=== PATIENT | female | born 1980 | race Caucasian/White ===

== ENCOUNTER → 2018-02-27 11:12 | Outpatient (CLI) | payer OTHER, SELFPAY ==
--- NOTE | 2018-02-27 11:21 | XR_ITS ---
XR foot LT min 3V HISTORY: ITS.REASON: LEFT FOOT PAIN ORDERING PHYSICIAN: Nayeli Lopez PATIENT AGE: 37 years COMPARISON: None FINDINGS: No fracture or dislocation. No lytic or blastic change. There is normal mineralization.. The joint spaces are well-preserved. No significant degenerative/arthritic changes. No erosive changes evident. IMPRESSION: Negative, no acute finding
== END ==
PROVIDERS: PCP Family Medicine; Visit Provider Nurse Practitioner Family
DX: M79.672 Pain in left foot (principal)
CPT/HCPCS: 73630

== ENCOUNTER → 2020-08-29 09:34 | Outpatient (CLI) | payer OTHER, SELFPAY | PROVIDERS: PCP Family Medicine; Visit Provider Family Medicine | DX: Z20.828 Contact with and (suspected) exposure to other viral communicable diseases (principal); U07.1 COVID-19 | CPT/HCPCS: U0003 ==

== ENCOUNTER → 2020-12-05 12:01 | Outpatient (CLI) | payer OTHER, SELFPAY ==
[2020-12-05 19:42] LABS: Adenovirus,PCR Not Detected (NotDetected); Bordetella Pertussis Not Detected (NotDetected); Chlamydophila Pneumoniae, PCR Not Detected (NotDetected); Coronavirus 229E Not Detected (NotDetected); Coronavirus NL63 Not Detected (NotDetected); Coronavirus OC43 Not Detected (NotDetected); Coronovirus HKU1,PCR Not Detected (NotDetected); Human Metapneumovirus Not Detected (NotDetected); Influenza A, PCR Not Detected (NotDetected); Influenza AH1, 2009 Not Detected (NotDetected); Influenza AH1, PCR Not Detected (NotDetected); Influenza AH3,PCR Not Detected (NotDetected); Influenza B, PCR Not Detected (NotDetected); Mycoplasma Pneumoniae, PCR Not Detected (NotDetected); Parainfluenza 1, PCR Not Detected (NotDetected); Parainfluenza 2, PCR Not Detected (NotDetected); Parainfluenza 3, PCR Not Detected (NotDetected); Parainfluenza 4, PCR Not Detected (NotDetected); Respiratory Syncytial Virus Not Detected (NotDetected); Rhinovirus/Enterovirus Not Detected (NotDetected)
== END ==
PROVIDERS: PCP Family Medicine; Visit Provider Family Medicine
DX: Z20.822 Contact with and (suspected) exposure to COVID-19 (principal)
CPT/HCPCS: 87486; 87581; 87633; 87798; U0003

== ENCOUNTER → 2021-06-26 12:53 | Outpatient (CLI) | payer OTHER, SELFPAY ==
--- NOTE | 2021-06-26 12:57 | US_ITS ---
PROCEDURE: US TRANSVAGINAL CLINICAL INDICATION: RT SIDED ABD PAIN ON OB PT COMPARISON: No exams were available for comparison FINDINGS: UTERUS: 8cm x 6cmx 4cm with a combined endometrial thickness of 4.9mm LEFT OVARY: [id number] with a volume of 4.7ml. RIGHT OVARY: [id number] with a volume of 7.2ml. No adnexal mass or cul-de-sac fluid. No uterine mass apparent. IMPRESSION: Negative pelvic ultrasound Dictated by: Bobby Martinez MD 06/26/2021 17:01 Bobby Martinez MD in [place] 06/26/2021 17:01
== END ==
PROVIDERS: PCP Family Medicine; Visit Provider Family Medicine
DX: R10.9 Unspecified abdominal pain (principal)
CPT/HCPCS: 76830

== ENCOUNTER → 2021-12-13 13:42 | Outpatient (CLI) | payer OTHER, SELFPAY ==
--- NOTE | 2021-12-13 13:45 | MM_ITS ---
PROCEDURE INFORMATION: Exam: US Right Breast Limited MG Bilateral Diagnostic Breast Tomosynthesis Exam date and time: 12/13/2021 1:45 PM Age: 41 years old Clinical indication: Palpable lump in the 12 o'clock position of the right breast. Patient is status post bilateral breast reduction in 2020. TECHNIQUE: Imaging protocol: Limited ultrasound of Right breast with image documentation, including axilla when performed. Exam focused on the search and evaluation for mass. Bilateral Diagnostic tomosynthesis and 2D mammography including computer-aided detection (CAD) when performed. Unilateral or bilateral exam. COMPARISON: No relevant prior studies available. FINDINGS: MAMMOGRAPHY: Breast density: The breasts are heterogeneously dense, which may obscure small masses. Mass: No suspicious masses. In the region of the patient's palpable lump in the right upper inner quadrant there is a benign-appearing, circumscribed, oval fat density mass measuring 3.3 x 2.6 x 2.9 cm, compatible with an oil cyst associated with post reduction fat necrosis. Similar-appearing fat density lesion in the posterior upper left breast measures 1.6 cm, also compatible with a postsurgical oil cyst. Architectural distortion: Prominent broad area of architectural distortion in the medial right breast is likely secondary to post reduction changes. Calcifications: No suspicious calcifications. Asymmetric density: None. Skin thickening: None. Axillary adenopathy: None. ULTRASOUND: Probably benign complex cystic mass in the 12 o'clock position 3 cm from the nipple measures 2.2 x 3.0 x 1.5 cm, compatible with post reduction fat necrosis. Additional complex cystic mass with internal septations in the 10 o'clock position 4 cm from the nipple measures 0.7 x 0.9 x 0.5 cm. No internal vascular flow noted in these cystic lesions. Benign-appearing fatty axillary lymph nodes are seen, largest measuring 1.9 cm in length. IMPRESSION: Recommend six-month follow-up diagnostic mammogram and ultrasound of the right breast to confirm stability of a probably benign 3.0 cm complex cystic mass which is compatible with post reduction fat necrosis. Prominent architectural distortion noted in the region of the mass on mammogram also likely represents post reduction changes, more pronounced in the right breast compared to the left. These findings correlate with the area of patient's palpable lump. Incidental 0.9 cm complex cystic mass with internal septations in the 10 o'clock position, also favors postoperative fat necrosis. Since this is the patient's baseline mammogram, recommend six-month follow-up diagnostic mammogram and ultrasound of the right breast to confirm stability of the palpable, probably benign area of post reduction fat necrosis in the 12 o'clock position and to confirm stability of an incidental cystic lesion in the 10 o'clock position of the right breast seen on ultrasound. No definite mammographic evidence of malignancy in the left breast. ASSESSMENT: BI-RADS Category 3: Probably Benign
== END ==
LOC: RAD 13:42
PROVIDERS: PCP Family Medicine; Visit Provider Family Medicine
DX: N63.12 Unspecified lump in the right breast, upper inner quadrant (principal)
CPT/HCPCS: 76642; 77062; 77066; G0279

== ENCOUNTER 2022-02-09 22:54 | Emergency (ER) | payer OTHER, SELFPAY ==
[2022-02-09 22:55] VITALS: BP 133/98; PULSE 87; RESP 20; TEMP 36.8; O2SAT 99; BMI 28.5
--- NOTE | 2022-02-09 23:00 | ECG_ITS ---
APPROVED REPORT Exam: Resting ECG HR:94 bpm ECG Measurements Heart Rate 94 AXES NC 143 P 56 QRSd 92 QRS 46 QT 341 T 57 QTc 393 Conclusion SINUS RHYTHM LOW QRS VOLTAGE IN PRECORDIAL LEADS [QRS DEFLECTION < 1.0 mV IN CHEST LEADS] BORDERLINE ECG UNCONFIRMED REPORT Electronically signed by : Dawood Segovia MD 02/11/2022 20:14:30
--- NOTE | 2022-02-09 23:14 | XR_ITS ---
PROCEDURE INFORMATION: Exam: XR Chest Exam date and time: 02/09/2022 11:39 PM Age: 41 years old Clinical indication: Sternal or substernal pain; Additional info: Cp TECHNIQUE: Imaging protocol: XR of the chest. Views: 2 views. COMPARISON: CR CXR CHEST(2 VIEWS-NOT PORTABLE) 11/16/2015 8:18 AM FINDINGS: Lungs: Mild hyperinflation. Lungs are otherwise clear. Pleural spaces: Unremarkable. No pleural effusion. No pneumothorax. Heart/Mediastinum: Unremarkable. No cardiomegaly. Bones/joints: Unremarkable. IMPRESSION: Mild pulmonary hyperinflation, otherwise normal exam.
[2022-02-09 23:31] LABS: Basophils # 0.2 K/mm3 (0-0.2); Basophils % 1.7 % (0.1-2.0); Eosinophils # 0.1 K/mm3 (0.0-0.4); Eosinophils % 0.8 % (0.1-12.0); Hematocrit 37.2 % (37.0-47.0); Lymphocytes # 3.8 K/mm3 (0.7-4.5); Mean Corpuscular HGB Conc 34.9 g/dL (31.8-35.4); Mean Corpuscular Hemoglobin 27.8 pg (27.0-31.2); Mean Corpuscular Volume 79.6 fl (81-99); Mean Platelet Volume 7.1 fl (7.4-10.4); Monocytes % 8.7 % (1.7-9.3); Neutrophils # 6.4 K/mm3 (1.8-7.8); Neutrophils % 55.8 % (37.0-80.0); Platelet Count 578 K/mm3 (142-424); Red Blood Count 4.67 M/mm3 (4.20-5.40); Red Cell Distribution Width 14.6 % (11.5-17.5); White Blood Count 11.4 K/mm3 (4.8-10.8)
[2022-02-09 23:36] LABS: Alanine Aminotransferase 14 U/L (12-78); Albumin Level 4.3 g/dl (3.5-5.0); Alkaline Phosphatase 83 U/L (38-126); Anion Gap 11.7 mEq/L (5-15); Aspartate Amino Transferase 22 U/L (14-36); Bilirubin,Direct 0.2 mg/dl (0.0-0.4); Bilirubin,Indirect 0.3 mg/dL (0.0-0.9); Bilirubin,Total 0.5 mg/dl (0.2-1.3); Bilirubin,Unconjugated 0.4 mg/dL (0.0-1.1); Blood Urea Nitrogen 13 mg/dl (7-17); Calcium 9.8 mg/dl (8.4-10.2); Carbon Dioxide 23 mmol/L (22.0-30.0); Chloride 105 mmol/L (98-107); Creatinine Clearance Estimated 106 mL/min (50-200); Estimated Glomerular Filt Rate 70 ml/min (>60); GFR (African American) 84 ML/MIN (>60); Glucose 93 mg/dl (74-100); Potassium 3.7 mmoL/L (3.5-5.1); Sodium 136 mmol/L (136-145); Total Protein,Serum 7.4 g/dl (6.3-8.2)
[2022-02-09 23:42] LABS: C-Reactive Protein 16.9 mg/L (0-4)
[2022-02-09 23:54] LABS: Erythrocyte Sedimentation Rate 22 mm/hr (0-20)
[2022-02-09 23:55] LABS: Troponin I < 0.01 ng/ml (0.00-0.034)
[2022-02-09 23:56] LABS: Procalcitonin 0.041 ng/mL (0.0-2.0)
[2022-02-10] VITALS: BP 138/94; PULSE 83; RESP 14; O2SAT 100
[2022-02-10 00:02] LABS: NT Pro Brain Natriuretic Pep. < 11.1 pg/mL (0-125)
[2022-02-10 00:10] LABS: HCG Qualitative, Serum Negative (Negative)
--- NOTE | 2022-02-10 00:13 | PC.NURSE ---
Pt reports she is feeling much better and denies any pain
[2022-02-10 00:30] VITALS: BP 136/90; PULSE 80; RESP 16; O2SAT 99
--- NOTE | 2022-02-10 00:46 | HMH.EDCP ---
ED Disposition Clinical Impression: Atypical chest pain Disposition: Home, Self-Care Condition on Discharge: Good Instructions: DI for Atypical Chest Pain Additional Instructions: see pcp for follow up Referrals: Nayeli Lopez APRN [Primary Care Provider] - - Critical Care Critical Care Time: No Attestation: On 02/09/22, the high probability of a clinically significant, sudden or life threatening deterioration of the following system(s) required my full and direct attention, intervention and personal management. The time I documented below is in addition to time spent performing reported procedures but includes the following listed in this critical care notation. Medical Decision Making - Medical Records Medical records reviewed: Yes: I reviewed the patient's medical records. - Dannie Inquiry Pt receiving controlled substance: No Vital Signs: 02/09/22 22:55 02/10/22 00:00 Temperature 98.2 F Temperature Source Oral Pulse Rate 83 Pulse Rate [Right] 87 Respiratory Rate 20 14 Blood Pressure 138/94 H Blood Pressure [Right Arm] 133/98 H Blood Pressure Mean 117 Blood Pressure Mean [Right Arm] 109 Blood Pressure Source [Right Arm] Automatic Cuff 02 Sat by Pulse Oximetry 99 100 Oxygen Delivery Method Room Air Room Air - Lab Data Lab results reviewed: Yes: I reviewed the patient's lab results. Lab Results 02/09/22 23:00: WBC 11.4 H, RBC 4.67, Hgb 13.0, Hct 37.2, MCV 79.6 L, MCH 27.8, MCHC 34.9, RDW 14.6, Plt Count 578 H, MPV 7.1 L, Neut % (Auto) 55.8, Lymph % (Auto) 33.0, [place] % (Auto) 8.7, Eos % (Auto) 0.8, Baso % (Auto) 1.7, Neut # (Auto) 6.4, Lymph # (Auto) 3.8, [place] # (Auto) 1.0, Eos # (Auto) 0.1, Baso # (Auto) 0.2, ESR 22 H 02/09/22 23:00: Sodium 136, Potassium 3.7, Chloride 105, Carbon Dioxide 23, Anion Gap 11.7, BUN 13, Creatinine 0.90, Estimated Creat Clear 106, Estimated GFR 70, Est GFR ( Amer) 84, Glucose 93, Calcium 9.8, Total Bilirubin 0.5, Direct Bilirubin 0.2, Conjugated Bilirubin 0.0, Indirect Bilirubin 0.3, Unconjugated Bilirubin 0.4, AST 22, ALT 14, Alkaline Phosphatase 83, Troponin I < 0.01, C-Reactive Protein 16.9 H, Total Protein 7.4, Albumin 4.3, Procalcitonin 0.041 02/09/22 23:00: Serum HCG, Qual Negative 02/09/22 23:00: NT-Pro-B Natriuret Pep < 11.1 Result diagrams: 02/09/22 23:00 02/09/22 23:00 Orders (Tests/Meds): ED MEDICATIONS Generic Name Dose Route Start Last Admin Trade Name Freq PRN Reason Stop Dose Admin Lactated Ringer's 1,000 mls @ 999 mls/hr 02/09/22 23:45 02/09/22 23:43 Lactated Ringer's 1000 Ml Bag IV 02/10/22 00:45 999 mls/hr .Q1H1M KERI Administration Discontinued Medications Generic Name Dose Route Start Last Admin Trade Name Freq PRN Reason Stop Dose Admin Aspirin 324 mg 02/09/22 23:35 02/09/22 23:05 Aspirin 81mg Chewable Tablet PO 02/09/22 23:36 324 mg ONCE ONE Administration ORDERS Category Date Time Status Troponin I Q3H Lab 02/10/22 02:30 Ordered Troponin I Q3H Lab 02/10/22 05:30 Ordered Urinalysis and Microscopic Stat Lab 02/09/22 23:20 Ordered - Radiology Data #1 Image(s): Chest Image Reviewed: Yes I have reviewed radiologist's interpretation Preliminary Findings: Normal/NAD - ECG Data Tracing #1 Normal Sinus Rhythm: Yes Ischemic changes: non-specific ST-T wave changes Medical Decision Narrative: stable exam and labs and will follow up at this time Chest Pain HPI - General Chief Complaint: Chest Pain Stated Complaint: SOA Time Seen by Provider: 02/10/22 00:46 Mode of Arrival: Family Vehicle Source of Information: Patient, Medical Record Limitations: No Limitations Description of Symptoms (Recalled from ER Triage Doc. by RN): Pt c/o midsternal chest pain that began @ 2240 tonight. She reports when the pain began it ttok my breath away , she denies any current SOA. She also reports when this started her mouth and fingertips felt numb, this did dispiate. She d
[2022-02-10 01:01] VITALS: BP 135/88; PULSE 79; RESP 16; TEMP 36.7; O2SAT 98
== END 2022-02-10 01:15 | disposition home or self-care (01) ==
PROVIDERS: Emergency Provider Emergency Medicine; PCP Nurse Practitioner Family
DX: R07.89 Other chest pain (principal); E78.5 Hyperlipidemia, unspecified; I49.9 Cardiac arrhythmia, unspecified; Z79.899 Other long term (current) drug therapy
CPT/HCPCS: 71046; 80048; 80076; 83880; 84145; 84484; 84703; 85025; 85651; 86140; 93005; 96360; 99283

== ENCOUNTER → 2022-05-16 09:02 | Outpatient (CLI) | payer OTHER, SELFPAY ==
--- NOTE | 2022-05-16 09:07 | CT_ITS ---
FINAL REPORT TECHNIQUE: Axial images through the abdomen and pelvis were performed without contrast. This study was performed with techniques to keep radiation doses as low as reasonably achievable, (ALARA). Individualized dose reduction techniques using automated exposure control or adjustment of mA and/or kV according to the patient's size were employed. CLINICAL HISTORY: stone protocol. left flank pain FINDINGS: ABDOMEN: The lung bases are clear. The heart size is normal. There are 3 low-attenuation masses in the liver, largest in the lateral segment of the left hepatic lobe measures 39 mm which cannot be accurately characterized without contrast, may represent cyst or hemangioma. The gallbladder is present. The spleen is normal. No adrenal mass is identified. The aorta is normal in caliber. There is no significant free fluid or adenopathy. There is no nephrolithiasis. There is no hydronephrosis. PELVIS: The appendix is not identified. There is inflammation adjacent to the distal descending colon consistent with epiploic appendagitis. Finding is best seen on axial image 84. The urinary bladder is unremarkable. There is no significant free fluid or adenopathy. IMPRESSION: Epiploic appendagitis. Reviewed, Interpreted and Dictated by Gume Yeh III, MD Transcribed by Dali Loomis Authenticated and [facility]
== END ==
PROVIDERS: PCP Physician Assistant; Visit Provider Physician Assistant
DX: R10.32 Left lower quadrant pain (principal)
CPT/HCPCS: 74176

== ENCOUNTER 2022-06-23 11:34 | Observation (INO) | payer OTHER, SELFPAY ==
[2022-06-23] VITALS (8 sets, daily range): BP systolic 116–156; BP diastolic 80–94; PULSE 84–102; RESP 16–18; TEMP 36.7–36.9; O2SAT 96–100; BMI 29.7; BMI 29.8
--- NOTE | 2022-06-23 11:49 | HMH.EDGENADL ---
Discharge Plan Disposition Patient Disposition: Admitted as Observation Condition: Fair Clinical Impressions Clinical Impression: Lumbar radiculopathy Discharge ED Provider: Jayleen Carr Adult HPI General Chief complaint: Back Pain/Injury Stated complaint: back pain Time Seen by Provider: 06/23/22 11:49 Mode of Arrival: Ambulatory Source of Information: Patient Limitations: No Limitations History of Present Illness HPI narrative: 41-year-old female presenting to the emergency department with back pain. Pain started 3 to 4 days ago. Initially was dull, aching. [place] like her chronic low back pain. Over the last 48 hours it is gotten much worse. It is located in the midportion of the back and radiates to the low right. Pain is worst just above her hip bone on the right posterior. Does not radiate to the buttocks, front of the hip, down the leg. She has pain with trunk motion. No pain with walking. She could not find a position of comfort last night. Did not get any sleep. She has a history of low back problems, but they got much better after breast reduction surgery. No known injury or fall. She did sit on uncomfortable bleachers for a sports game in the midportion of the week. She has been taking naproxen. Received this Toradol injection at her PCP yesterday, did not feel like it helped. No abdominal pain, fevers, chills, nausea, vomiting. No constipation or diarrhea. No dysuria or hematuria. No urinary symptoms, retention or frequency. No numbness, weakness, tingling in the genital area or the lower extremities. Related Data Home Medications Medication Instructions Recorded Confirmed desogestrel 0.15 mg-ethinyl 1 each PO DAILY control 02/09/22 06/23/22 estradiol 0.03 mg tablet pantoprazole 40 mg tablet,delayed 40 mg PO DAILY GERD 02/09/22 06/23/22 release zolpidem 10 mg tablet 10 mg PO HSP PRN Insomnia 02/09/22 06/23/22 Allergies Allergy/AdvReac Type Severity Reaction Status Date / Time magnesium [MAGNESIUM] Allergy Severe STOP Verified 02/09/22 23:36 BREATHING' butorphanol [From STADOL] AdvReac Mild Nausea Verified 02/09/22 23:42 PFSH PFSH Social History Smoking Status: Never smoker alcohol intake: current current occupational status: employed Travel in the last 8 weeks: None ROS Obtained: Yes All systems reviewed & no additional complaints except as documented Constitutional Constitutional: Denies chills, Denies fever(s) and Denies weakness ENT Ears, Nose, Mouth, and Throat: Denies neck pain Cardiovascular Cardiovascular: Denies dyspnea, Denies edema and Denies leg edema Respiratory Respiratory: Denies cough, Denies dyspnea and Denies pain on inspiration Gastrointestinal Gastrointestingal: Denies abdominal pain, cramping, diarrhea, nausea or vomiting Genitourinary Female Genitourinary: Denies dysuria, Reports flank pain and Denies hematuria Musculoskeletal Musculoskeletal: Denies arthralgias, Reports back pain, Denies neck pain, Denies numbness, Reports stiffness and Denies tingling Integumentary/Breasts Skin/Breast: Denies lesions and Denies rash Neurologic Neurologic: Denies numbness, Denies radicular pain, Denies tingling and Denies weakness Physical Exam General General appearance: alert and in no apparent distress Eye Eye exam: Present normal appearance; Absent conjunctival redness Neck Neck exam: Present normal inspection; Absent tenderness Respiratory Respiratory exam: Present normal lung sounds bilaterally; Absent respiratory distress or wheezes Cardiovascular Cardiovascular exam: Present regular rate and normal rhythm Abdominal Exam Abdominal exam: Present soft; Absent distention or tenderness Extremities Exam Extremities exam: Present normal inspection and other (No pain with leg raise on the right or left. No tenderness palpation over the greater trochanter on the right.) Back Exam Back exam: Present normal inspection, tenderness (To palpa
[2022-06-23 11:50] LABS: Microscopic, Urine URINE MICROSCOPIC (MICROSCOPIC)
--- NOTE | 2022-06-23 11:58 | PC.NURSE ---
pt medicated per MAR. warm blankets provided for comfort. IV established and blood sent to the lab
[2022-06-23 12:01] LABS: Basophils # 0.1 K/mm3 (0-0.2); Basophils % 0.9 % (0.1-2.0); Eosinophils # 0.1 K/mm3 (0.0-0.4); Eosinophils % 1.1 % (0.1-12.0); Hemoglobin 12.5 g/dL (12.2-16.2); Lymphocytes # 2.2 K/mm3 (0.7-4.5); Lymphocytes % 19.1 % (10-50); Mean Corpuscular HGB Conc 32.9 g/dL (31.8-35.4); Mean Corpuscular Hemoglobin 26.6 pg (27.0-31.2); Mean Corpuscular Volume 80.9 fl (81-99); Mean Platelet Volume 6.9 fl (7.4-10.4); Monocytes # 0.5 K/mm3 (0.1-1.0); Monocytes % 4.3 % (1.7-9.3); Neutrophils # 8.5 K/mm3 (1.8-7.8); Neutrophils % 74.6 % (37.0-80.0); Platelet Count 563 K/mm3 (142-424); Red Cell Distribution Width 14.1 % (11.5-17.5); White Blood Count 11.3 K/mm3 (4.8-10.8)
[2022-06-23 12:02] LABS: Appearance,Urine CLOUDY (Clear); Bilirubin,Urine Negative (Negative); Blood, Urine Negative (Negative); Color,Urine YELLOW (Yellow); Glucose,Urine (UA) Negative (Negative); Ketones,Urine Negative (Negative); Leukocyte Esterase,Urine Negative (Negative); Nitrate,Urine Negative (Negative); PH,Urine 5.5 (5.0-8.5); Protein,Urine Negative (Negative); Specific Gravity, Urine >= 1.030 (1.005-1.030); Urobilinogen,Urine 0.2 EU/dl (0.2)
[2022-06-23 12:07] LABS: Chloride 108 mmol/L (98-107); Potassium 4.3 mmoL/L (3.5-5.1); Sodium 139 mmol/L (136-145)
[2022-06-23 12:10] LABS: Alanine Aminotransferase 14 U/L (12-78); Albumin Level 4.2 g/dl (3.5-5.0); Albumin/Globulin Ratio 1.2 (1.1-1.8); Alkaline Phosphatase 113 U/L (38-126); Anion Gap 13.3 mEq/L (5-15); Aspartate Amino Transferase 28 U/L (14-36); Blood Urea Nitrogen 14 mg/dl (7-17); Calcium 8.5 mg/dl (8.4-10.2); Carbon Dioxide 22 mmol/L (22.0-30.0); Creatinine Clearance Estimated 121 mL/min (50-200); Estimated Glomerular Filt Rate 80 ml/min (>60); GFR (African American) 97 ML/MIN (>60); Globulin 3.4 g/dL (1.3-3.2); Glucose 91 mg/dl (74-100); Total Protein,Serum 7.6 g/dl (6.3-8.2)
[2022-06-23 12:16] LABS: Amorphous Sediment,Urine 1+ /lpf; Bacteria,Urine 1+ /lpf; RBC,Urine Occasional #/hpf (0-3)
[2022-06-23 12:19] LABS: Bilirubin,Total 0.1 mg/dl (0.2-1.3)
[2022-06-23 12:20] LABS: HCG Qualitative, Serum Negative (Negative)
--- NOTE | 2022-06-23 12:27 | CT_ITS ---
PROCEDURE INFORMATION: Exam: CT Abdomen And Pelvis Without Contrast Exam date and time: 06/23/2022 12:33 PM Age: 41 years old Clinical indication: Pain; Other: Lbp; Additional info: Lt lbp x 2 days TECHNIQUE: Imaging protocol: Computed tomography of the abdomen and pelvis without contrast. Radiation optimization: All CT scans at this facility use at least one of these dose optimization techniques: automated exposure control; mA and/or kV adjustment per patient size (includes targeted exams where dose is matched to clinical indication); or iterative reconstruction. COMPARISON: CT ABDOMEN PELVIS WO CON 05/16/2022 9:10 AM FINDINGS: Liver: There are 3 persistent hypoattenuating lesions within the liver. The largest measures 3.9 cm and has somewhat all lobulated configuration. This is located in the subcapsular region of the left lobe of the liver. Findings cannot be adequately characterized without contrast however stable compared to the study dated 05/16/2022. Gallbladder and bile ducts: Normal. No calcified stones. No ductal dilation. Pancreas: Normal. No ductal dilation. Spleen: Normal. No splenomegaly. Adrenal glands: Normal. No mass. Kidneys and ureters: Normal. No hydronephrosis. Stomach and bowel: The descending colon is collapsed on the current study. Previously demonstrated changes consistent with epiploic appendagitis have nearly resolved. Appendix: Not definitely identified. No evidence of appendicitis. Intraperitoneal space: Unremarkable. No free air. No significant fluid collection. Vasculature: Unremarkable. No abdominal aortic aneurysm. Lymph nodes: Unremarkable. No enlarged lymph nodes. Urinary bladder: Unremarkable as visualized. Reproductive: Unremarkable as visualized. Bones/joints: Unremarkable. No acute fracture. Soft tissues: Unremarkable. IMPRESSION: 1. No evidence of acute abnormality. 2. Previously demonstrated changes consistent with epiploic appendagitis have nearly resolved. 3. 3.9 cm lobulated low-density lesion within the left lobe of the liver just beneath the diaphragm. Findings may correspond to a hemangioma however cannot be adequately characterized without intravenous contrast. Consider follow-up with dynamic post-contrast enhanced imaging. Alternatively, MRI of the abdomen should be considered.
--- NOTE | 2022-06-23 12:33 | PC.NURSE ---
pain reassessed. pt states she has not had relief. new orders placed per MD request and pt medicated per MAR
--- NOTE | 2022-06-23 12:37 | PC.NURSE ---
pt to ct at this time
--- NOTE | 2022-06-23 12:42 | PC.NURSE ---
pt returned from CT
--- NOTE | 2022-06-23 13:35 | PC.NURSE ---
pt pacing the room states she is still in pain. this nurse spoke with MD for additional pain management. new orders placed per MD and pt medicated at this time. pt updated on POC and that we are awaiting radiology report.
--- NOTE | 2022-06-23 14:42 | PC.NURSE ---
MD at the bedside to discuss POC and test results
--- NOTE | 2022-06-23 14:46 | PC.NURSE ---
pt states she does not want to wear her BP cuff. states she is too uncomfortable. VS delayed
[2022-06-23 15:02] LABS: C-Reactive Protein 18.7 mg/L (0-4)
[2022-06-23 15:45] LABS: Erythrocyte Sedimentation Rate 21 mm/hr (0-20)
--- NOTE | 2022-06-23 16:26 | PC.NURSE ---
IN WITH PT
--- NOTE | 2022-06-23 17:39 | PC.NURSE ---
DR ISAURA BLANCHARD FOR SERVICE
[2022-06-23 17:40] LABS: Coronavirus 19, PCR Not Detected (NotDetected); Influenza A, PCR Not Detected (NotDetected); Influenza B, PCR Not Detected (NotDetected)
--- NOTE | 2022-06-23 17:45 | PC.NURSE ---
DR DELAROSA AGREED TO ADMIT PT , HOUSE NOTIFIED FOR ADMISSION
--- NOTE | 2022-06-23 18:30 | PC.NURSE ---
report called to [facility] daily
[2022-06-24 04:00] VITALS: BP 98/54; PULSE 96; RESP 16; TEMP 36.6; O2SAT 98
--- NOTE | 2022-06-24 04:17 | PC.NURSE ---
pt rested well through the night after ambien, pt stated some relief from percocet and flexeril and rated pain 5/10 to right lower back area, pt is alert and oriented x4, VSS, no other issues or concerns at this time.
[2022-06-24 05:00] VITALS: BMI 29.7
[2022-06-24 08:00] VITALS: BP 113/70; PULSE 91; RESP 18; TEMP 36.7; O2SAT 96
--- NOTE | 2022-06-24 08:22 | HMH.PHAINT1 ---
Pharmacy Intervention Comments: MEDICATION RECONCILIATION COMPLETED ON PATIENT USING EXTERNAL FILL HISTORY FROM PHARMACY AND BRISA REPORT. -CHEY CORREIA, MATTHEWD
--- NOTE | 2022-06-24 08:24 | P.CONPHA_ITS ---
[facility] Pharmacy VTE Monitoring Patient Demographics Admission date: 06/23/22 Report Date: 06/24/22 Time: 08:24 Patient Allergies magnesium [MAGNESIUM] Allergy (Severe, Verified 02/09/22 23:36) STOP BREATHING' butorphanol [From STADOL] Adverse Reaction (Mild, Verified 02/09/22 23:42) Nausea Height: 1.65 m Weight: 81 kg Current Active Problems (Updated 06/23/22 @ 20:29 by Sabiha Bingham RN) Lumbar radiculopathy (Acute) VTE Risk Labs: VTE Related Lab Results Hgb 12.5 g/dL (12.2-16.2) 06/23/22 11:49 Hct 38.0 % (37.0-47.0) 06/23/22 11:49 Plt Count 563 K/mm3 (142-424) H 06/23/22 11:49 BUN 14 mg/dl (7-17) 06/23/22 11:49 Creatinine 0.80 mg/dl (0.52-1.04) 06/23/22 11:49 Estimated Creat Clear 121 mL/min (50-200) 06/23/22 11:49 Was VTE Risk Assessment Performed: Yes VTE Score: 0 VTE Risk Level: Very Low Risk Prophylaxis VTE Prophylaxis Ordered?: Yes Types of VTE Prophylaxis: TEDS Knee High Location of Applied Device: Bilateral Lower Extremeties
[2022-06-24 08:34] LABS: Anion Gap 12.3 mEq/L (5-15); Blood Urea Nitrogen 10 mg/dl (7-17); Calcium 9.1 mg/dl (8.4-10.2); Carbon Dioxide 21 mmol/L (22.0-30.0); Chloride 107 mmol/L (98-107); Creatinine Clearance Estimated 161 mL/min (50-200); Estimated Glomerular Filt Rate 111 ml/min (>60); GFR (African American) 135 ML/MIN (>60); Glucose 118 mg/dl (74-100); Potassium 4.3 mmoL/L (3.5-5.1); Sodium 136 mmol/L (136-145)
--- NOTE | 2022-06-24 09:19 | EXP.HPDC ---
General Admission date:: 06/23/22 Discharge date: 06/24/22 *Admission Date: 06/23/22 *Chief complaint: Low back pain *History of present illness: My is a generally healthy 41-year-old white female who presented to the ER yesterday with a 2-day history of worsening low back pain. She localizes the pain to the right lower back with no radicular symptoms. She recalls no specific injury. She did sit on bleachers at a sporting event at night before her pain started. She had seen her PCP the day before coming to the ER and received an injection of Toradol and prescription for muscle relaxers but had no improvement. On evaluation in the emergency room, she was initially assessed for renal colic. Routine blood work and urinalysis were nonrevealing. CT scan of the abdomen also showed no acute abnormalities. While in the ER, she received several doses of oral and IV narcotics, IV Toradol, IV steroids, and muscle relaxers with no significant improvement in her pain. She was thus admitted for observation and further pain management. [facility] Medical History (Updated 06/24/22 @ 09:19 by Prudencio Davis MD) Bigeminy delivery delivered History of back pain Trigeminy Surgical History (Updated 06/23/22 @ 20:29 by Sabiha Bingham RN) History of radiofrequency ablation (RFA) procedure for cardiac arrhythmia Hx of breast reduction, elective Social History (Updated 06/23/22 @ 20:29 by Sabiha Bingham RN) Smoking Status: Never smoker alcohol intake: current substance use type: denies use current occupational status: employed Travel in the last 8 weeks: None household members: spouse and children housing: house marital status: number of children: 2 education level: college pets and animals: Yes pets and animals: 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(s) 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 water heater temp set < 120 deg: Yes working smoke detector in home: Yes fire extinguisher in home: Yes carbon monox detector in home: Yes firearms in home: No Review of Systems Constitutional Constitutional: Denies body ache(s), Denies fever(s) and Denies weakness Eyes Eyes: Denies change in vision ENT Ears, Nose, Mouth, and Throat: Reports system reviewed and no additional complaints, except as documented *Cardiovascular Cardiovascular: Denies chest pain, Denies dyspnea, Denies irregular heart rhythm and Denies leg edema *Respiratory Respiratory: Denies chest congestion, Denies cough and Denies dyspnea *Gastrointestinal Gastrointestinal: Denies abdominal pain, Denies change in bowel habits and Denies nausea *Genitourinary Genitourinary: Denies abnormal vaginal bleeding, Denies dysuria, Denies urinary incontinence and Denies urinary hesitancy *Musculoskeletal Musculoskeletal: Reports as per HPI, Denies numbness and Denies tingling *Neurologic Neurologic: Denies numbness, Denies radicular pain, Denies tingling and Denies weakness Comments: No saddle anesthesia Exam Data for Last 24 hours Vital signs and Labs for Last 24 Hours: Temp Pulse Resp BP Pulse Ox 97.8 F 96 H 16 98/54 L 98 06/24/22 04:00 06/24/22 04:00 06/24/22 04:00 06/24/22 04:00 06/24/22 04:00 Laboratory Results - last 24 hr 06/23/22 11:38: Urine Color Yellow, Urine Appearance Cloudy, Urine pH 5.5, Ur Specific [place] >= 1.030, Urine Protein Negative, Urine Glucose (UA) Negative, Urine Ketones Negative, Urine Blood Negative, Urine Nitrate Negative, Urine Bilirubin Negative, Urine Urobilinogen 0.2, Ur Leukocyte Esterase Negative, Urine RBC Occasional, Urine WBC 3-5, Ur Squamous Epith Cells 5-10, Amorphous Sediment 1+, Urine Bacteria 1+ 06/23/22 11:49: WBC 11.3 H, RBC 4.70, Hgb 12.5, Hct 38.0, MCV 80.9 L, MCH 26.6 L, MCHC 32.9, RDW 14.1, Plt Count 563 H, MPV 6.9 L, Neut % (Auto) 74.6, Lymph % (Auto) 19.1, [place] % (Auto) 4.3, Eos % (Auto) 1.1, Baso % (Auto) 0.9, Neut # (Auto) 8.5 H, Lymph # (Auto) 2.2, [place] # (Auto) 0.5, Eos # (Aut
--- NOTE | 2022-06-24 09:29 | PC.NURSE ---
pt had 1 unmeasured void
--- NOTE | 2022-06-24 10:24 | PC.NURSE ---
pt has been disachrged from the facilkity. Family with pt. She denies any pain @ this time.l WIll schedule follow up tomorrow when office is open.
--- NOTE | 2022-06-25 12:53 | CARE MANAGER ---
Contacted patient related to hospital discharge. Patient is still having a lot of pain. She has a follow up appointment with Dr. Acosta in the morning and is hoping to get some type of relief. She denies any questions or concerns at this time. CARRI Contreras
== END 2022-06-24 09:55 | disposition home or self-care (01) ==
LOC: ER 17:35 → 2ND 18:11
PROVIDERS: Admitting Provider Family Medicine; Emergency Provider Emergency Medicine; PCP Nurse Practitioner Family; Visit Provider Family Medicine
DX: S39.012A Strain of muscle, fascia and tendon of lower back, initial encounter (principal); M46.1 Sacroiliitis, not elsewhere classified; Z20.822 Contact with and (suspected) exposure to COVID-19
CPT/HCPCS: 36415; 74176; 80048; 80053; 81001; 84703; 85025; 85651; 86140; 99285; C9803; G0378; J2405; U0003; U0005

== ENCOUNTER → 2022-07-16 07:34 | Outpatient (CLI) | payer OTHER, SELFPAY ==
--- NOTE | 2022-07-16 07:37 | MR_ITS ---
FINAL REPORT CLINICAL HISTORY: LESION OF LIVER. ABNORMAL CT SCAN. 16ML PROHANCE GIVEN. COMPARISON: CT abdomen and pelvis dated 06/23/2022 FINDINGS: Multiplanar MR imaging of the abdomen was performed without and with contrast. There are 3 well-circumscribed hepatic masses again seen. The largest has a lobular contour, measures up to 4.4 cm. and is seen in the lateral segment of the left hepatic lobe. None of these show evidence of contrast enhancement and are consistent with cysts. There is no evidence of biliary ductal dilatation. The gallbladder has an unremarkable appearance. No other mass or adenopathy is identified. No abnormal fluid collection is seen. IMPRESSION: Nonenhancing hepatic masses consistent with cysts. Reviewed, Interpreted and Dictated by Gume Yeh III, MD Transcribed by Anu Lo Authenticated and . [facility]
== END ==
PROVIDERS: PCP Nurse Practitioner Family; Visit Provider Family Medicine
DX: K76.89 Other specified diseases of liver (principal)
CPT/HCPCS: 74183; A9576

== ENCOUNTER 2022-07-24 17:00 | Outpatient (RCR) | payer OTHER, SELFPAY | END 2022-07-24 17:05 | disposition home or self-care (01) | LOC: PT 17:00 | PROVIDERS: PCP Nurse Practitioner Family; Visit Provider Family Medicine | DX: M54.50 Low back pain, unspecified (principal); M53.3 Sacrococcygeal disorders, not elsewhere classified | CPT/HCPCS: 97010; 97014; 97035; 97110; 97140; 97163; G0283 ==

== ENCOUNTER → 2022-07-31 16:22 | Outpatient (CLI) | payer OTHER, SELFPAY ==
[2022-07-31 20:21] LABS: Basophils # 0.1 K/mm3 (0-0.2); Basophils % 0.9 % (0.1-2.0); Eosinophils # 0.1 K/mm3 (0.0-0.4); Eosinophils % 0.6 % (0.1-12.0); Hematocrit 39.5 % (37.0-47.0); Hemoglobin 12.8 g/dL (12.2-16.2); Lymphocytes # 2.2 K/mm3 (0.7-4.5); Lymphocytes % 28.8 % (10-50); Mean Corpuscular HGB Conc 32.5 g/dL (31.8-35.4); Mean Corpuscular Hemoglobin 26.4 pg (27.0-31.2); Mean Corpuscular Volume 81.1 fl (81-99); Mean Platelet Volume 8.3 fl (7.4-10.4); Monocytes # 0.5 K/mm3 (0.1-1.0); Monocytes % 7.2 % (1.7-9.3); Neutrophils # 4.7 K/mm3 (1.8-7.8); Neutrophils % 62.5 % (37.0-80.0); Platelet Count 692 K/mm3 (142-424); Red Blood Count 4.87 M/mm3 (4.20-5.40); Red Cell Distribution Width 14.8 % (11.5-17.5); White Blood Count 7.5 K/mm3 (4.8-10.8)
[2022-07-31 21:12] LABS: Alanine Aminotransferase 17 U/L (12-78); Albumin Level 4.1 g/dl (3.5-5.0); Albumin/Globulin Ratio 1.3 (1.1-1.8); Alkaline Phosphatase 107 U/L (38-126); Anion Gap 19.2 mEq/L (5-15); Aspartate Amino Transferase 22 U/L (14-36); Bilirubin,Total 0.2 mg/dl (0.2-1.3); Blood Urea Nitrogen 9 mg/dl (7-17); Calcium 9.1 mg/dl (8.4-10.2); Carbon Dioxide 23 mmol/L (22.0-30.0); Chloride 101 mmol/L (98-107); Chol/HDL Ratio 3.8 (1-3.5); Cholesterol 281 mg/dl (140-200); Estimated Glomerular Filt Rate 70 ml/min (>60); GFR (African American) 84 ML/MIN (>60); Globulin 3.1 g/dL (1.3-3.2); Glucose 93 mg/dl (74-100); HDL Cholesterol 73 mg/dl (40-60); Potassium 4.2 mmoL/L (3.5-5.1); Sodium 139 mmol/L (136-145); Total Protein,Serum 7.2 g/dl (6.3-8.2)
[2022-07-31 21:19] LABS: Hemoglobin A1C 5.2 % (4.0-6.0); Triglycerides 404 mg/dl (30-150)
[2022-07-31 21:23] LABS: Direct LDL Cholesterol 149.89 mg/dL (100-129)
[2022-07-31 21:38] LABS: Thyroid Stimulating Hormone 3.53 uIU/mL (0.465-4.68)
[2022-07-31 21:56] LABS: Vitamin B12 353 pg/mL (239-931)
[2022-07-31 22:56] LABS: 25-OH Vitamin D, Total 21.8 ng/mL (30-100)
== END ==
PROVIDERS: PCP Physician Assistant; Visit Provider Physician Assistant
DX: R44.9 Unspecified symptoms and signs involving general sensations and perceptions (principal); E55.9 Vitamin D deficiency, unspecified; Z79.899 Other long term (current) drug therapy
CPT/HCPCS: 80053; 80061; 82306; 82607; 83036; 84443; 85025

== ENCOUNTER → 2022-08-01 09:28 | Outpatient (CLI) | payer OTHER, SELFPAY ==
[2022-08-03 09:03] LABS: Peripheral Smear Review Scanned Result
== END ==
PROVIDERS: PCP Physician Assistant; Visit Provider Nurse Practitioner
DX: R06.00 Dyspnea, unspecified (principal); R00.2 Palpitations; R61 Generalized hyperhidrosis; Z98.890 Other specified postprocedural states
CPT/HCPCS: 93270

== ENCOUNTER → 2022-08-03 08:28 | Outpatient (CLI) | payer OTHER, SELFPAY | PROVIDERS: PCP Physician Assistant; Visit Provider Nurse Practitioner | DX: R06.00 Dyspnea, unspecified (principal); R00.2 Palpitations; R61 Generalized hyperhidrosis; Z98.890 Other specified postprocedural states | CPT/HCPCS: 93306 ==

== ENCOUNTER → 2022-08-20 09:08 | Outpatient (CLI) | payer OTHER, SELFPAY ==
[2022-08-20 09:51] LABS: Basophils # 0.1 K/mm3 (0-0.2); Basophils % 0.8 % (0.1-2.0); Eosinophils # 0.1 K/mm3 (0.0-0.4); Eosinophils % 0.9 % (0.1-12.0); Hematocrit 35.4 % (37.0-47.0); Hemoglobin 11.8 g/dL (12.2-16.2); Lymphocytes # 2.1 K/mm3 (0.7-4.5); Lymphocytes % 25.6 % (10-50); Mean Corpuscular HGB Conc 33.4 g/dL (31.8-35.4); Mean Corpuscular Hemoglobin 26.5 pg (27.0-31.2); Mean Corpuscular Volume 79.4 fl (81-99); Mean Platelet Volume 7.1 fl (7.4-10.4); Monocytes # 0.6 K/mm3 (0.1-1.0); Neutrophils # 5.4 K/mm3 (1.8-7.8); Neutrophils % 65.7 % (37.0-80.0); Platelet Count 546 K/mm3 (142-424); Red Blood Count 4.46 M/mm3 (4.20-5.40); Red Cell Distribution Width 14.5 % (11.5-17.5); White Blood Count 8.2 K/mm3 (4.8-10.8)
[2022-08-20 10:13] LABS: Iron 53 ug/dL (37-170)
[2022-08-20 10:48] LABS: Ferritin 5.97 ng/ml (6.24-137)
[2022-08-20 11:32] LABS: Total Iron Binding Capacity 493 ug/dL (265-497)
== END ==
PROVIDERS: PCP Nurse Practitioner Family; Visit Provider Internal Medicine Medical Oncology
DX: D50.8 Other iron deficiency anemias (principal); D61.818 Other pancytopenia; R79.89 Other specified abnormal findings of blood chemistry
CPT/HCPCS: 36415; 81270; 82728; 83540; 83550; 85025

== ENCOUNTER → 2022-09-12 14:38 | Outpatient (CLI) | payer OTHER, SELFPAY ==
--- NOTE | 2022-09-12 14:48 | US_ITS ---
PROCEDURE INFORMATION: Exam: US Right Breast, Complete, Abscess Evaluation MG Right Diagnostic Breast Tomosynthesis Exam date and time: 09/12/2022 3:13 PM Age: 41 years old Clinical indication: Six-month follow-up for probably benign mammographic architectural distortion and sonographic cystic masses, considered likely postoperative fat necrosis, status post reduction mammoplasty. TECHNIQUE: Imaging protocol: Right Ultrasound of the breast with image documentation. All quadrants and retroareolar regions evaluated. Exam focused on the search and evaluation for abscess. Exam is an emergent request and a non-BIRADS study. Right Diagnostic tomosynthesis and 2D mammography including computer-aided detection (CAD) when performed. Unilateral or bilateral exam. COMPARISON: US BREAST RT LIMITED 12/13/2021 2:34 PM FINDINGS: MAMMOGRAPHY: Breast composition: There are scattered areas of fibroglandular density. Mass: None. Architectural distortion: Stable architectural distortion and related 2.5 cm lucent mass, compatible with fat necrosis, in the inner upper quadrant, posterior 3rd. Diffuse architectural distortion post reduction mammoplasty. Calcifications: No suspicious calcifications. Asymmetric density: None. Skin thickening: None. Axillary adenopathy: None. ULTRASOUND: Targeted sonography at 12 o'clock 3 cm from the nipple demonstrates a mass with cystic and solid components measuring 3.2 x 1.9 by 2.5 cm, which measured 2.2 x 3.0 x 1.5 cm on 12/13/2021, likely from difference in scan plane and technique. This likely correlates with the lucent mammographic mass in the upper inner quadrant. At 3 o'clock 3 cm from the nipple, hypoechoic shadowing region, is not specific but more likely reflect scarring, not demonstrated on the prior study. At 10 o'clock 4 cm from the nipple, oval hypoechoic mass measuring 0.5 by 0.6 x 0.2 cm, which measured 0.7 x 0.9 x 0.5 cm on 12/13/2021. At 11 o'clock 3 cm from the nipple, oval hypoechoic mass measuring 0.4 x 0.3 by 0.6 cm, not demonstrated on prior study. Sonographically unremarkable right axillary lymph node. IMPRESSION: See comment Mammographic findings are typical, and stable, indicating scarring and fat necrosis post reduction mammoplasty. Sonographic findings likely reflect fat necrosis as well - including a newly demonstrated hypoechoic shadowing area at 3:00 - if this is of clinical concern, an MRI could be added, for example. Otherwise, suggest continued six-month follow-up mammography (due for bilateral screening mammogram in December 2022) and right sonography, unless otherwise clinically indicated ASSESSMENT: BI-RADS Category 3: Probably benign
== END ==
PROVIDERS: PCP Nurse Practitioner Family; Visit Provider Family Medicine
DX: R92.8 Other abnormal and inconclusive findings on diagnostic imaging of breast (principal)
CPT/HCPCS: 76641; 77061; 77065; G0279

== ENCOUNTER → 2022-09-20 09:50 | Outpatient (CLI) | payer OTHER, SELFPAY ==
[2022-09-20 10:38] LABS: Basophils # 0.1 K/mm3 (0-0.2); Basophils % 1.1 % (0.1-2.0); Eosinophils # 0.1 K/mm3 (0.0-0.4); Eosinophils % 1.4 % (0.1-12.0); Hematocrit 37.1 % (37.0-47.0); Lymphocytes # 2.4 K/mm3 (0.7-4.5); Mean Corpuscular HGB Conc 32.3 g/dL (31.8-35.4); Mean Corpuscular Hemoglobin 25.8 pg (27.0-31.2); Mean Corpuscular Volume 79.9 fl (81-99); Mean Platelet Volume 7.1 fl (7.4-10.4); Monocytes # 0.5 K/mm3 (0.1-1.0); Monocytes % 7.3 % (1.7-9.3); Neutrophils # 3.5 K/mm3 (1.8-7.8); Neutrophils % 54.3 % (37.0-80.0); Platelet Count 605 K/mm3 (142-424); Red Blood Count 4.65 M/mm3 (4.20-5.40); Red Cell Distribution Width 14.9 % (11.5-17.5); White Blood Count 6.5 K/mm3 (4.8-10.8)
[2022-09-20 12:08] LABS: Iron 28 ug/dL (37-170)
[2022-09-20 12:17] LABS: Total Iron Binding Capacity 470 ug/dL (265-497)
[2022-09-20 12:44] LABS: Ferritin 13.3 ng/ml (6.24-137)
== END ==
PROVIDERS: PCP Family Medicine; Visit Provider Internal Medicine Medical Oncology
DX: D50.9 Iron deficiency anemia, unspecified (principal)
CPT/HCPCS: 36415; 82728; 83540; 83550; 85025

== ENCOUNTER → 2022-10-30 18:30 | Outpatient (CLI) | payer OTHER, SELFPAY ==
[2022-10-30 15:09] LABS: Basophils # 0.1 K/mm3 (0-0.2); Basophils % 0.9 % (0.1-2.0); Eosinophils # 0.2 K/mm3 (0.0-0.4); Eosinophils % 2.1 % (0.1-12.0); Hematocrit 37.9 % (37.0-47.0); Hemoglobin 12.3 g/dL (12.2-16.2); Lymphocytes # 2.7 K/mm3 (0.7-4.5); Lymphocytes % 36.2 % (10-50); Mean Corpuscular HGB Conc 32.5 g/dL (31.8-35.4); Mean Corpuscular Hemoglobin 26.1 pg (27.0-31.2); Mean Corpuscular Volume 80.3 fl (81-99); Mean Platelet Volume 9.1 fl (7.4-10.4); Monocytes # 0.5 K/mm3 (0.1-1.0); Monocytes % 6.8 % (1.7-9.3); Platelet Count 616 K/mm3 (142-424); Red Blood Count 4.73 M/mm3 (4.20-5.40); Red Cell Distribution Width 14.5 % (11.5-17.5); White Blood Count 7.3 K/mm3 (4.8-10.8)
[2022-10-30 15:25] LABS: Chol/HDL Ratio 3.7 (1-3.5); Cholesterol 231 mg/dl (140-200); HDL Cholesterol 62 mg/dl (40-60); Triglycerides 354 mg/dl (30-150); VLDL Cholesterol 71 mg/dL (0-40)
[2022-10-30 15:42] LABS: Direct LDL Cholesterol 113.31 mg/dL (100-129)
[2022-10-30 15:43] LABS: 25-OH Vitamin D, Total 20.8 ng/mL (30-100)
[2022-10-30 16:16] LABS: Vitamin B12 367 pg/mL (239-931)
[2022-10-30 17:26] LABS: Iron 33 ug/dL (37-170)
[2022-11-01 08:58] LABS: FSH 3.3 mIU/mL (.); LH 1.3 mIU/mL (.); Progesterone 0.3 ng/mL (.)
[2022-11-05 00:07] LABS: Estrogen 38 pg/mL (.)
[2022-11-06 00:07] LABS: Testosterone, Total, LC/MS 21 ng/dL (.)
== END ==
LOC: LAB 18:31
PROVIDERS: PCP Physician Assistant; Visit Provider Physician Assistant
DX: R53.83 Other fatigue (principal); R79.89 Other specified abnormal findings of blood chemistry; E61.1 Iron deficiency; E53.8 Deficiency of other specified B group vitamins
CPT/HCPCS: 80061; 82306; 82607; 82672; 83001; 83002; 83540; 84144; 84403; 85025

== ENCOUNTER → 2023-01-03 08:00 | Outpatient (CLI) | payer OTHER, SELFPAY ==
[2023-01-03 14:48] LABS: Basophils # 0.1 K/mm3 (0-0.2); Basophils % 1.3 % (0.1-2.0); Eosinophils # 0.1 K/mm3 (0.0-0.4); Eosinophils % 2.4 % (0.1-12.0); Hematocrit 39.6 % (37.0-47.0); Hemoglobin 12.9 g/dL (12.2-16.2); Lymphocytes # 2.1 K/mm3 (0.7-4.5); Lymphocytes % 36.2 % (10-50); Mean Corpuscular HGB Conc 32.7 g/dL (31.8-35.4); Mean Corpuscular Hemoglobin 26.3 pg (27.0-31.2); Mean Corpuscular Volume 80.4 fl (81-99); Mean Platelet Volume 8.3 fl (7.4-10.4); Monocytes # 0.5 K/mm3 (0.1-1.0); Platelet Count 512 K/mm3 (142-424); Red Blood Count 4.92 M/mm3 (4.20-5.40); Red Cell Distribution Width 14.6 % (11.5-17.5); White Blood Count 5.9 K/mm3 (4.8-10.8)
[2023-01-03 14:55] LABS: Alanine Aminotransferase 60 U/L (12-78); Albumin Level 4.4 g/dl (3.5-5.0); Albumin/Globulin Ratio 1.6 (1.1-1.8); Alkaline Phosphatase 101 U/L (38-126); Anion Gap 13.4 mEq/L (5-15); Aspartate Amino Transferase 50 U/L (14-36); Bilirubin,Total 0.6 mg/dl (0.2-1.3); Blood Urea Nitrogen 15 mg/dl (7-17); Calcium 9.4 mg/dl (8.4-10.2); Carbon Dioxide 26 mmol/L (22.0-30.0); Chloride 102 mmol/L (98-107); Chol/HDL Ratio 4.6 (1-3.5); Cholesterol 198 mg/dl (140-200); Estimated Glomerular Filt Rate 79 ml/min (>60); GFR (African American) 96 ML/MIN (>60); Globulin 2.8 g/dL (1.3-3.2); Glucose 83 mg/dl (74-100); HDL Cholesterol 43 mg/dl (40-60); Potassium 4.4 mmoL/L (3.5-5.1); Sodium 137 mmol/L (136-145); Total Protein,Serum 7.2 g/dl (6.3-8.2); Triglycerides 234 mg/dl (30-150); VLDL Cholesterol 47 mg/dL (0-40)
[2023-01-03 15:06] LABS: Direct LDL Cholesterol 110.43 mg/dL (100-129)
[2023-01-03 15:10] LABS: Intact Parathyroid Hormone 83.7 pg/mL (7.5-53.5)
[2023-01-03 15:13] LABS: 25-OH Vitamin D, Total 33.8 ng/mL (30-100)
[2023-01-03 15:14] LABS: Free T4 (Free Thyroxine) 0.88 ng/dl (0.78-2.19)
[2023-01-03 15:29] LABS: Thyroid Stimulating Hormone 2.12 uIU/mL (0.465-4.68)
[2023-01-03 15:48] LABS: Vitamin B12 570 pg/mL (239-931)
[2023-01-03 16:27] LABS: Iron 67 ug/dL (37-170)
[2023-01-03 16:36] LABS: Total Iron Binding Capacity 433 ug/dL (265-497)
[2023-01-03 17:03] LABS: Ferritin 18.5 ng/ml (6.24-137)
== END ==
LOC: LAB.DROPOF 13:18
PROVIDERS: PCP Physician Assistant; Visit Provider Physician Assistant
DX: E61.1 Iron deficiency (principal); R79.89 Other specified abnormal findings of blood chemistry; E78.00 Pure hypercholesterolemia, unspecified; R00.2 Palpitations; R61 Generalized hyperhidrosis; R51.9 Headache, unspecified; E66.3 Overweight; Z68.30 Body mass index [BMI] 30.0-30.9, adult
CPT/HCPCS: 80053; 80061; 82306; 82607; 82728; 83540; 83550; 83970; 84439; 84443; 85025

== ENCOUNTER → 2023-01-08 10:03 | Outpatient (CLI) | payer OTHER, SELFPAY ==
[2023-01-08 14:42] LABS: Intact Parathyroid Hormone 95.4 pg/mL (7.5-53.5)
[2023-01-09 12:18] LABS: Calcium, Ionized 5.1 mg/dL (4.5-5.6)
== END ==
LOC: LAB.DROPOF 13:37
PROVIDERS: PCP Physician Assistant; Visit Provider Physician Assistant
DX: E34.9 Endocrine disorder, unspecified (principal)
CPT/HCPCS: 82330; 83970

== ENCOUNTER → 2023-01-23 07:28 | Outpatient (CLI) | payer OTHER, SELFPAY ==
--- NOTE | 2023-01-23 07:30 | MR_ITS ---
FINAL REPORT CLINICAL HISTORY: LIVER LESION FOLLOW-UP 17ML PROHANCE COMPARISON: 07/16/2022 FINDINGS: Multiplanar MR imaging of the abdomen was performed without and with contrast. Again noted are 3 hepatic masses, 2 in the right liver dome and 1 in the left. None show evidence of contrast enhancement and are consistent with cysts. The largest is in the left liver dome measuring 4.4 cm. These are visually stable. In addition, there is a mass seen in the superior left liver dome measuring proximally 16 mm. It is difficult to fully characterize secondary to location but probably shows contrast enhancement. This is stable since the prior exam and may represent hemangioma. No other hepatic mass identified. There is no evidence of biliary ductal dilatation. The gallbladder has an unremarkable appearance. No other mass or adenopathy is identified. IMPRESSION: Stable hepatic masses as described. Stable possible hemangioma superior left liver dome as above. Reviewed, Interpreted and Dictated by Gume Yeh III, MD Transcribed by Nallely Hummel Authenticated and . [facility]
== END ==
LOC: RAD 07:28
PROVIDERS: PCP Physician Assistant; Visit Provider Family Medicine
DX: K76.89 Other specified diseases of liver (principal)
CPT/HCPCS: 74183; A9576

== ENCOUNTER → 2023-02-04 08:58 | Outpatient (CLI) | payer OTHER, SELFPAY ==
--- NOTE | 2023-02-04 08:58 | NM_ITS ---
FINAL REPORT CLINICAL HISTORY: Elevated PTH FINDINGS: 20.9 mCi Technetium 99-M Sestamibi was administered. Planar imaging was performed early and two-hour delayed of the neck and upper thorax. Early imaging shows physiologic uptake within the upper neck involving the salivary glands and lower neck involving the thyroid gland. On delayed imaging there is no abnormal retained activity in the lower neck or mediastinum to localize parathyroid adenoma. IMPRESSION: No scintigraphic evidence of parathyroid adenoma. Reviewed, Interpreted and Dictated by Gume Yeh III, MD Transcribed by Uday Kruger Authenticated and [facility]
== END ==
PROVIDERS: PCP Physician Assistant; Visit Provider Physician Assistant
DX: E34.9 Endocrine disorder, unspecified (principal)
CPT/HCPCS: 78070; A9500

== ENCOUNTER → 2023-06-10 10:19 | Outpatient (CLI) | payer OTHER, SELFPAY | PROVIDERS: PCP Physician Assistant; Visit Provider Specialist | DX: R46.89 Other symptoms and signs involving appearance and behavior (principal) | CPT/HCPCS: 95816 ==

== ENCOUNTER → 2023-06-18 15:28 | Outpatient (CLI) | payer OTHER, SELFPAY | PROVIDERS: PCP Physician Assistant; Visit Provider Internal Medicine | DX: R00.2 Palpitations (principal); R06.00 Dyspnea, unspecified; R61 Generalized hyperhidrosis; Z98.890 Other specified postprocedural states | CPT/HCPCS: 93270 ==

== ENCOUNTER → 2023-06-19 14:27 | Outpatient (CLI) | payer OTHER, SELFPAY ==
[2023-06-19 13:04] LABS: Basophils # 0.1 K/mm3 (0-0.2); Basophils % 0.7 % (0.1-2.0); Eosinophils # 0.1 K/mm3 (0.0-0.4); Hemoglobin 12.7 g/dL (12.2-16.2); Lymphocytes # 2.2 K/mm3 (0.7-4.5); Lymphocytes % 26.5 % (10-50); Mean Corpuscular HGB Conc 32.7 g/dL (31.8-35.4); Mean Corpuscular Hemoglobin 26.2 pg (27.0-31.2); Mean Corpuscular Volume 80.3 fl (81-99); Mean Platelet Volume 8.1 fl (7.4-10.4); Monocytes # 0.7 K/mm3 (0.1-1.0); Monocytes % 8.9 % (1.7-9.3); Neutrophils # 5.1 K/mm3 (1.8-7.8); Neutrophils % 62.9 % (37.0-80.0); Platelet Count 497 K/mm3 (142-424); Red Blood Count 4.86 M/mm3 (4.20-5.40); Red Cell Distribution Width 15.3 % (11.5-17.5); White Blood Count 8.2 K/mm3 (4.8-10.8)
[2023-06-19 13:59] LABS: Chloride 108 mmol/L (98-107); Sodium 141 mmol/L (136-145)
[2023-06-19 14:00] LABS: Potassium 4.7 mmoL/L (3.5-5.1)
[2023-06-19 14:02] LABS: Alanine Aminotransferase 47 U/L (12-78); Albumin Level 4.2 g/dl (3.5-5.0); Alkaline Phosphatase 123 U/L (38-126); Anion Gap 15.7 mEq/L (5-15); Aspartate Amino Transferase 39 U/L (14-36); Bilirubin,Direct 0.4 mg/dl (0.0-0.4); Bilirubin,Indirect 0.3 mg/dL (0.0-0.9); Bilirubin,Total 0.7 mg/dl (0.2-1.3); Bilirubin,Unconjugated 0.3 mg/dL (0.0-1.1); Blood Urea Nitrogen 11 mg/dl (7-17); Calcium 9.9 mg/dl (8.4-10.2); Carbon Dioxide 22 mmol/L (22.0-30.0); Cholesterol 192 mg/dl (140-200); Estimated Glomerular Filt Rate 79 ml/min (>60); GFR (African American) 96 ML/MIN (>60); Glucose 98 mg/dl (74-100); Total Protein,Serum 7.3 g/dl (6.3-8.2); Triglycerides 153 mg/dl (30-150); VLDL Cholesterol 31 mg/dL (0-40)
[2023-06-19 14:03] LABS: Chol/HDL Ratio 4.5 (1-3.5); HDL Cholesterol 43 mg/dl (40-60)
[2023-06-19 14:14] LABS: Direct LDL Cholesterol 107.99 mg/dL (100-129)
== END ==
PROVIDERS: PCP Physician Assistant; Visit Provider Internal Medicine
DX: R06.00 Dyspnea, unspecified (principal); R00.2 Palpitations; R61 Generalized hyperhidrosis; I11.9 Hypertensive heart disease without heart failure; E11.9 Type 2 diabetes mellitus without complications; Z98.890 Other specified postprocedural states
CPT/HCPCS: 80048; 80061; 80076; 84439; 84443; 85025

== ENCOUNTER → 2023-06-25 06:19 | Outpatient (CLI) | payer OTHER, SELFPAY ==
--- NOTE | 2023-06-25 06:20 | NM_ITS ---
APPROVED REPORT Exam: Nuclear Stress Test Indication: hyperlipidemia, fm hx., sob, palpatations, fatigue, ab;ation in 2017 Patient Location: Outpatient Stress Tech: Mary Garcia [place] Tech:Martine Banks, ARRT RT (R)(N)(M) Ht: 5 ft 6 in Wt: 195 lbs Bra Size: b HR: 70 bpm BP: 135/89 mmHg BSA: 1.98 m2 Rhythm: NSR TID: 1.07 BMI: 31.4 History: hyperlipidemia, fm hx., sob, palpatations, fatigue, ablation in 2017 Procedure: Patient exercised on Ken protocol 8:14 minutes and sec, resting heart rate 70 bpm, resting blood pressure 135/89 mmHg, with exercise maximum heart rate achived was 156 bpm which is 87 % of the maximum predicted heart rate and blood pressure was 160/82 mmHg. Test was stopped due to fatigue. Patient denied any complaint of chest pain. Patient has average exercise capacity, achieved 10.1 METs of workload on treadmill, the blood pressure response to exercise was normal. Cardiac Stress and Resting SPECT Images: Cardiac Stress and Resting SPECT images were obtained using technetium 99m Myoview 31.0 mCi stress and 10.36 mCi at rest. No evidence of fixed or reversible perfusion defects. Gated imaging demonstrates low-normal global LV systolic function. LVEF is calculated at 50%. Conclusion: Resting and stress imaging in both supine and prone positions demonstrate no evidence of fixed or reversible perfusion defects. Gated imaging demonstrates low-normal global LV systolic function. LVEF is calculated at 50%. Electronically signed by : Reena Mendiola, 07/02/2023 10:58:24
--- NOTE | 2023-06-25 09:02 | CA_ITS ---
APPROVED REPORT Exam: Exercise Treadmill Technologist: Mary Garcia Ht: 5 ft 6 in Wt: 201 lbs BSA: 2.00 m2 HR: 70 bpm BP: 135/89 mmHg Rhythm: NSR Indications: Dyspnea, Palpitations Medical History Medications: Vitamin D3,,,,, Pantoprazole,,,,, ProMETHAZINE,,,,, Ibuprofen,,,,, Zolpidem,,,,, BenzONATATE,,,,, RoSUVASTATIN,,,,, ONdansetron,,,,, Furosemide,,,,, LiNACotide,,,,, Stress Test Details Test: Ken HR Resting HR: 73 bpm Max Heart Rate (APMHR): 180 bpm Max HR Achieved: 156 bpm Target HR (85% APMHR): 153 bpm % of APMHR: 87 Recovery HR: 96 bpm HR response to stress: Normal HR response to stress BP Resting BP: 135.0/89.0 mmHg Max BP: 160.0/82.0 mmHg Recovery BP: 121.0/85.0 mmHg BP response to stress: Normal blood pressure response to stress. ECG Resting ECG: Sinus rhythm Stress ECG: No ST change Arrhythmia: Occasional PVCs Recovery ECG: No ST changes Recovery Arrhythmia: None Clinical Exercise duration: 08:14 min Highest Stage Achieved: Exercise capacity: 10.1 METs Overall Exercise Capacity for Age: Average Stress ECG Conclusion The patient was able to exercise for a total of 8m, 14s. She achieved a total of 10.1 METs. She has an average exercise capacity compared to age and sex matched peers. She has normal HR and BP response to exercise. Symptoms: Leg fatigue, dyspnea Arrhythmias/Ectopy: PVC ST-T Changes: No significant ST changes. Conclusion: Average exercise capacity. Normal HR and BP response to exercise. Normal EKG response to exercise. Myoview images are reported separately. Test Summary REST . . . . . . . Sitting REST . . . . . . . Standing REST 07:18 0.0 0.0 73 . 135/ 89 . . Stage 1 01:00 10.0 1.7 114 . . . . Stage 1 02:00 10.0 1.7 124 . . . . Stage 1 03:00 10.0 1.7 123 . 130/ 70 . . Stage 2 01:00 12.0 2.5 132 . . . . Stage 2 02:00 12.0 2.5 138 . 144/ 78 . . Stage 2 03:00 12.0 2.5 142 . 144/ 78 . . Stage 3 01:00 14.0 3.4 151 . . . . Stage 3 . . . . . . . Myoview Injected Stage 3 02:00 14.0 3.4 155 . . . . Stage 3 02:14 14.0 3.4 155 . 160/ 82 . Stop exercise at 08:14 RECOVERY 01:00 0.0 0.0 122 . 138/ 80 . . RECOVERY 02:00 0.0 0.0 88 . 138/ 80 . . RECOVERY 03:00 0.0 0.0 93 . 136/ 87 . . RECOVERY 04:00 0.0 0.0 96 . 123/ 88 . . RECOVERY 04:46 0.0 0.0 99 . 121/ 85 . . Electronically signed by : Reena Mnediola, 07/02/2023 10:56:06
== END ==
LOC: RAD 06:20
PROVIDERS: PCP Physician Assistant; Referring Provider Internal Medicine; Visit Provider Internal Medicine
DX: R00.2 Palpitations (principal); R06.00 Dyspnea, unspecified; R61 Generalized hyperhidrosis; Z98.890 Other specified postprocedural states
CPT/HCPCS: 78452; 93017; A9502

== ENCOUNTER → 2023-07-05 15:03 | Outpatient (CLI) | payer OTHER, SELFPAY ==
--- NOTE | 2023-07-05 15:06 | CA_ITS ---
APPROVED REPORT EXAM: Comprehensive 2D, Doppler, and color-flow Echocardiogram Paint Striping Machine Operator: Izabella Stubbs RT(R) Ht: 5 ft 6 in Wt: 201lbs BSA: 2.00 BP: 138/89 mmHg Indications: dyspnea, palpitations, hx RF ablation, diaphoresis 2D Dimensions LVOT 1.97 cm (M/F) 1.5-2.5 M-Mode Dimensions RVDd 3.58 cm (0.9-2.6) LA Diam 2.78 cm (1.9-4.0) LVDd 4.06 cm (3.5-5.7) Ao Diam 3.11 cm (2.0-3.7) LVDs 3.05 cm (3.5-5.7) IVSd 1.13 cm (0.6-1.1) PWd 0.84 cm (0.6-1.1) EF (Teich) 49.80% FS 24.90% EDV (Teich) 72.50 mL ESV (Teich) 36.40 mL LV Diastology E Decel Time 173.00 (160-240 msec) E/A Ratio 1.0 MED E' 9.80 (< 7 cm/sec) E'/MED E' Ratio 5.38 (>14) LAT E' 13.10 (<10 cm/sec) E/LAT E' Ratio 4.02 (>14) Mitral Valve MV E Max [place]. 53.00 (40-130 cm/s) MV A Velocity 53.00 (40-130 cm/s) E/A Ratio 1.00 MV Decel. Time 173.00 (160-240 ms) MV PHT 51.00 ms Left Ventricle The left ventricle is normal size. The left ventricular systolic function is normal. The left ventricular ejection fraction is within the normal range. There is normal left ventricular wall thickness. There is normal LV segmental wall motion. The left ventricular diastolic function is normal. LVEF is 55%. Right Ventricle The right ventricle is normal size. The right ventricular systolic function is normal. Atria The left atrium size is normal. The right atrium size is normal. There is no Doppler evidence of interatrial shunt. Aortic Valve The aortic valve opens well. There is no aortic valvular stenosis. No aortic regurgitation is present. Mitral Valve The mitral valve is normal in structure. No evidence of mitral valve stenosis. There is no mitral valve regurgitation noted. Tricuspid Valve The tricuspid valve leaflets are thin and pliable. Trace tricuspid regurgitation. There is insufficient TR jet to estimate RVSP. Pulmonic Valve The pulmonary valve is normal in structure. Trace pulmonic regurgitation. Great Vessels The aortic root is normal in size. The ascending aorta is normal in size. IVC is normal in size and collapses >50% with inspiration. Pericardium There is no pericardial effusion. Other Information Study Quality: Fair Conclusion Normal biventricular systolic function. No significant valvular stenosis or regurgitation. Electronically signed by : Reean Mendiola MD 07/09/2023 18:19:40
== END ==
LOC: RT 15:03
PROVIDERS: PCP Physician Assistant; Visit Provider Internal Medicine
DX: R06.00 Dyspnea, unspecified (principal); R00.2 Palpitations; R61 Generalized hyperhidrosis; Z98.890 Other specified postprocedural states
CPT/HCPCS: 93306

== ENCOUNTER → 2023-07-31 15:31 | Outpatient (CLI) | payer OTHER, SELFPAY ==
[2023-07-31 18:16] LABS: Calcium 9.2 mg/dl (8.4-10.2)
[2023-07-31 18:25] LABS: Intact Parathyroid Hormone 170.3 pg/mL (7.5-53.5)
[2023-07-31 18:32] LABS: Free Thyroxine Index 2.1 ug/dL (5.93-13.13); T4 (Thyroxine) 6.8 ug/dl (5.53-11.0); Triiodothryronine (T3) Uptake 31 % (23.5-40.5)
[2023-08-02 16:38] LABS: Calcium, Ionized 4.9 mg/dL (4.5-5.6)
[2023-08-10 18:29] LABS: 1,25 Dihydroxy Vitamin D 53 pg/mL (.); 1,25-Dihydroxy, Vitamin D-2 <10 pg/mL (.); 1,25-Dihydroxy, Vitamin D-3 51 pg/mL (.)
== END ==
PROVIDERS: PCP Physician Assistant; Visit Provider Internal Medicine
DX: R00.2 Palpitations (principal); R06.00 Dyspnea, unspecified; R61 Generalized hyperhidrosis; Z98.890 Other specified postprocedural states; Z79.899 Other long term (current) drug therapy
CPT/HCPCS: 36415; 82310; 82330; 82533; 82652; 83970; 84436; 84443; 84479

== ENCOUNTER → 2023-08-02 10:21 | Outpatient (CLI) | payer OTHER, SELFPAY ==
[2023-08-09 00:07] LABS: Dopamine, Ur, 24hr 104 ug/24 hr (0-510); Dopamine, Urine 149 ug/L (Undefined); Epinephrine, U, 24hr 1 ug/24 hr (0-20); Epinephrine, Urine 1 ug/L (Undefined); Norepinephrine, Ur 33 ug/L (Undefined); Norepinephrine,U,24h 23 ug/24 hr (0-135); VMA, Urine 2.6 mg/L (Undefined); VMA, Urine, 24hr 1.8 mg/24 hr (0.0-7.5)
== END ==
PROVIDERS: PCP Nurse Practitioner; Visit Provider Internal Medicine
DX: R00.2 Palpitations (principal); R06.00 Dyspnea, unspecified; R61 Generalized hyperhidrosis; Z98.890 Other specified postprocedural states
CPT/HCPCS: 82384; 84585

== ENCOUNTER → 2023-08-05 11:44 | Outpatient (CLI) | payer OTHER, SELFPAY ==
[2023-08-09 22:09] LABS: Metanephrine, U,24hr 15 ug/24 hr (36-209); Metanephrine, Ur 74 ug/L (Undefined); Normetanephr.,U,24h 53 ug/24 hr (131-612); Normetanephrine, Ur 263 ug/L (Undefined)
== END ==
PROVIDERS: PCP Physician Assistant; Visit Provider Internal Medicine
DX: R00.2 Palpitations (principal); R06.00 Dyspnea, unspecified; R61 Generalized hyperhidrosis; Z98.890 Other specified postprocedural states
CPT/HCPCS: 83835

== ENCOUNTER → 2023-08-06 17:03 | Outpatient (CLI) | payer OTHER, SELFPAY | PROVIDERS: PCP Physician Assistant; Visit Provider Physician Assistant | DX: N39.0 Urinary tract infection, site not specified (principal); A49.8 Other bacterial infections of unspecified site | CPT/HCPCS: 87086 ==

== ENCOUNTER → 2023-08-26 15:26 | Outpatient (CLI) | payer OTHER, SELFPAY | PROVIDERS: PCP Physician Assistant; Visit Provider Internal Medicine | DX: E21.3 Hyperparathyroidism, unspecified (principal) ==

== ENCOUNTER → 2023-09-02 09:54 | Outpatient (CLI) | payer OTHER, SELFPAY ==
[2023-09-04 11:40] LABS: Calcium, Urine 24.4 mg/dL (Not Estab.); Calcium, Urine 24hr 134 mg/24 hr (0-320)
== END ==
PROVIDERS: PCP Physician Assistant; Visit Provider Internal Medicine
DX: E21.3 Hyperparathyroidism, unspecified (principal)
CPT/HCPCS: 82340

== ENCOUNTER 2024-03-23 07:39 | Outpatient (CLI) | payer OTHER, SELFPAY ==
--- NOTE | 2024-03-23 07:44 | MR_ITS ---
FINAL REPORT CLINICAL HISTORY: liver masses, follow-up COMPARISON: 01/23/2023 FINDINGS: Multiplanar MR imaging of the abdomen was performed without and with contrast. There are 2 masses in the right liver dome. The larger measures 2 cm. These are stable and appearance and are consistent with cysts. There is a 16 mm mass in the left liver dome which shows contrast-enhancement and has a lobular border. This is stable in size and appearance and is consistent with a hemangioma. In addition, there is a 4.5 cm lobular mass in the left hepatic lobe in the left upper quadrant. This does not show significant contrast-enhancement. Appearance is stable and this may represent a complex cyst or atypical hemangioma. No new mass is identified. There is no adenopathy. IMPRESSION: Stable masses as described are most likely benign. If indicated, consider 12-month follow-up MRI to evaluate for continued stability. Reviewed, Interpreted and Dictated by Gume Yeh III, MD Transcribed by Anu Lo Authenticated and [facility]
[2024-03-23] MEDS: GADOTERIDOL INJ 20ML SYRINGE 16 ML IV (08:54)
[2024-03-23] MEDS: SODIUM CHLORIDE 0.9% 10ML FLUSH SYRINGE 10 ML IV (08:55)
[2024-03-23] MEDS: SODIUM CHLORIDE 0.9% 50ML BAG 25 ML IV (09:14)
== END 2024-03-23 23:59 | disposition home or self-care (01) ==
LOC: RAD 07:39
PROVIDERS: PCP Physician Assistant; Visit Provider Physician Assistant
DX: R16.0 Hepatomegaly, not elsewhere classified (principal)
CPT/HCPCS: 74183; A9576

== ENCOUNTER 2024-04-22 10:51 | Outpatient (CLI) | payer OTHER, SELFPAY ==
[2024-04-22 11:19] LABS: Basophils # 0.1 K/mm3 (0-0.2); Basophils % 0.8 % (0.1-2.0); Eosinophils # 0.3 K/mm3 (0.0-0.4); Hematocrit 39.8 % (37.0-47.0); Hemoglobin 12.8 g/dL (12.2-16.2); Lymphocytes # 2.4 K/mm3 (0.7-4.5); Lymphocytes % 25.5 % (10-50); Mean Corpuscular HGB Conc 32.3 g/dL (31.8-35.4); Mean Corpuscular Hemoglobin 26.1 pg (27.0-31.2); Mean Corpuscular Volume 80.8 fl (81-99); Mean Platelet Volume 7.2 fl (7.4-10.4); Monocytes # 0.8 K/mm3 (0.1-1.0); Monocytes % 8.5 % (1.7-9.3); Neutrophils # 5.8 K/mm3 (1.8-7.8); Neutrophils % 62.3 % (37.0-80.0); Platelet Count 513 K/mm3 (142-424); Red Blood Count 4.93 M/mm3 (4.20-5.40); Red Cell Distribution Width 15.3 % (11.5-17.5); White Blood Count 9.3 K/mm3 (4.8-10.8)
[2024-04-22 11:50] LABS: Alanine Aminotransferase 27 U/L (12-78); Albumin Level 4.6 g/dl (3.5-5.0); Anion Gap 11.3 mEq/L (5-15); Aspartate Amino Transferase 25 U/L (14-36); Bilirubin,Total 0.6 mg/dl (0.2-1.3); Blood Urea Nitrogen 13 mg/dl (7-17); Calcium 10.1 mg/dl (8.4-10.2); Carbon Dioxide 26 mmol/L (22.0-30.0); Chloride 105 mmol/L (98-107); Estimated Glomerular Filt Rate 92 ml/min (>60); GFR (African American) 112 ML/MIN (>60); Glucose 99 mg/dl (74-100); Potassium 4.3 mmoL/L (3.5-5.1); Sodium 138 mmol/L (136-145); Total Protein,Serum 7.5 g/dl (6.3-8.2)
[2024-04-22 11:51] LABS: Albumin/Globulin Ratio 1.6 (1.1-1.8); Alkaline Phosphatase 92 U/L (38-126); Amylase 66 U/L (30-110); Globulin 2.9 g/dL (1.3-3.2); Lipase 81 U/L (23-300)
[2024-04-23 15:14] LABS: H. pylori Breath Test Negative (Negative)
[2024-04-27 21:09] LABS: F026-IgE Pork < 0.10 kU/L (Class 0); F027-IgE Beef < 0.10 kU/L (Class 0); F088-IgE Lamb < 0.10 kU/L (Class 0); Immunoglobulin E, Total 5 IU/mL (6-495); O215-IgE Alpha-Gal < 0.10 kU/L (Class 0)
== END 2024-04-22 23:59 | disposition home or self-care (01) ==
LOC: LAB 10:51
PROVIDERS: PCP Nurse Practitioner Family; Visit Provider Nurse Practitioner Family
DX: R19.7 Diarrhea, unspecified (principal); R11.2 Nausea with vomiting, unspecified; R10.9 Unspecified abdominal pain
CPT/HCPCS: 36415; 80053; 82150; 83013; 83690; 85025

== ENCOUNTER 2024-06-02 10:48 | Outpatient (CLI) | payer OTHER, SELFPAY ==
[2024-06-02 10:21] LABS: Basophils # 0.1 K/mm3 (0-0.2); Basophils % 0.8 % (0.1-2.0); Eosinophils # 0.1 K/mm3 (0.0-0.4); Hematocrit 39.9 % (37.0-47.0); Hemoglobin 12.5 g/dL (12.2-16.2); Lymphocytes # 2.3 K/mm3 (0.7-4.5); Lymphocytes % 33.7 % (10-50); Mean Corpuscular HGB Conc 31.2 g/dL (31.8-35.4); Mean Corpuscular Hemoglobin 25.6 pg (27.0-31.2); Mean Platelet Volume 7.7 fl (7.4-10.4); Monocytes # 0.4 K/mm3 (0.1-1.0); Monocytes % 6.4 % (1.7-9.3); Neutrophils # 3.9 K/mm3 (1.8-7.8); Neutrophils % 57.1 % (37.0-80.0); Platelet Count 524 K/mm3 (142-424); Red Blood Count 4.87 M/mm3 (4.20-5.40); Red Cell Distribution Width 15.6 % (11.5-17.5); White Blood Count 6.8 K/mm3 (4.8-10.8)
[2024-06-02 11:10] LABS: Hemoglobin A1C 5.1 % (4.0-6.0)
[2024-06-02 11:44] LABS: Erythrocyte Sedimentation Rate 17 mm/hr (0-20)
[2024-06-02 12:07] LABS: Albumin Level 4.2 g/dl (3.5-5.0); Chloride 107 mmol/L (98-107); Potassium 4.6 mmoL/L (3.5-5.1); Sodium 139 mmol/L (136-145)
[2024-06-02 12:09] LABS: Blood Urea Nitrogen 11 mg/dl (7-17); Estimated Glomerular Filt Rate 79 ml/min (>60); GFR (African American) 96 ML/MIN (>60)
[2024-06-02 12:10] LABS: Alanine Aminotransferase 21 U/L (12-78); Albumin/Globulin Ratio 1.5 (1.1-1.8); Alkaline Phosphatase 95 U/L (38-126); Anion Gap 13.6 mEq/L (5-15); Aspartate Amino Transferase 26 U/L (14-36); Bilirubin,Total 0.4 mg/dl (0.2-1.3); Carbon Dioxide 23 mmol/L (22.0-30.0); Chol/HDL Ratio 4.4 (1-3.5); Cholesterol 175 mg/dl (140-200); Globulin 2.8 g/dL (1.3-3.2); Glucose 69 mg/dl (74-100); HDL Cholesterol 40 mg/dl (40-60); Iron 45 ug/dL (37-170); Magnesium 1.9 mg/dl (1.6-2.3); Phosphorous 3.4 mg/dl (2.5-4.5); Triglycerides 273 mg/dl (30-150); VLDL Cholesterol 55 mg/dL (0-40)
[2024-06-02 12:17] LABS: C-Reactive Protein 3.3 mg/L (0-4)
[2024-06-02 12:20] LABS: Total Iron Binding Capacity 419 ug/dL (265-497)
[2024-06-02 12:32] LABS: 25-OH Vitamin D, Total 37.6 ng/mL (30-100)
[2024-06-02 12:33] LABS: Free Thyroxine Index 2.3 ug/dL (5.93-13.13); T4 (Thyroxine) 7.5 ug/dl (5.53-11.0); Triiodothryronine (T3) Uptake 30 % (23.5-40.5)
[2024-06-02 12:45] LABS: Ferritin 7.66 ng/ml (6.24-137)
[2024-06-02 13:13] LABS: Vitamin B12 658 pg/mL (239-931)
[2024-06-02 13:14] LABS: Intact Parathyroid Hormone 132.7 pg/mL (7.5-53.5)
[2024-06-03 14:09] LABS: Testosterone,Total <3 ng/dL (4-50); Thyroid Peroxidase Antibodies <9 IU/mL (0-34)
[2024-06-03 16:14] LABS: Deamidated Gliadin Abs, IgA 5 units (0-19); Deamidated Gliadin Abs, IgG 2 units (0-19); Endomysial IgA Antibody Negative (Negative); Tissue Transglutaminase IgA Ab <2 U/mL (0-3); Tissue Transglutaminase IgG Ab 3 U/mL (0-5)
[2024-06-05 09:13] LABS: Reticulin IgA Antibody Negative titer (Neg:<1:2.5)
[2024-06-10 09:37] LABS: Antinuclear Antibodies (ANA) NEGATIVE
== END 2024-06-02 23:59 | disposition home or self-care (01) ==
LOC: LAB.DROPOF 10:48
PROVIDERS: PCP Nurse Practitioner Family; Visit Provider Nurse Practitioner Family
DX: R14.0 Abdominal distension (gaseous) (principal); R10.9 Unspecified abdominal pain; M25.50 Pain in unspecified joint; R53.83 Other fatigue; E21.3 Hyperparathyroidism, unspecified; R00.2 Palpitations; E66.9 Obesity, unspecified; E78.5 Hyperlipidemia, unspecified; Z13.1 Encounter for screening for diabetes mellitus; E61.1 Iron deficiency
CPT/HCPCS: 80050; 80053; 80061; 82306; 82330; 82607; 82728; 83036; 83516; 83540; 83550; 83735; 83970; 84100; 84403; 84436; 84443; 84479; 85025; 85651; 86038; 86140; 86225; 86235; 86255; 86256; 86376

== ENCOUNTER 2024-08-07 10:45 | Outpatient (CLI) | payer OTHER, SELFPAY ==
--- NOTE | 2024-08-07 10:48 | XR_ITS ---
PROCEDURE INFORMATION: Exam: XR Right Foot Exam date and time: 08/07/2024 10:57 AM Age: 43 years old Clinical indication: Pain; Foot; Right; Additional info: Right foot pain TECHNIQUE: Imaging protocol: Radiologic exam of the right foot. Views: 3 or more views. COMPARISON: CR XR ANKLE RT MIN 3V 08/07/2024 10:57 AM FINDINGS: Bones/joints: There is no evidence of acute fracture.There is no evidence of malalignment or dislocation. Mild Degenerative changes in the tarsal bones and tarsometatarsal joints Soft tissues: Normal. IMPRESSION: There is no evidence of acute fracture.There is no evidence of malalignment or dislocation.
--- NOTE | 2024-08-07 10:48 | XR_ITS ---
PROCEDURE INFORMATION: Exam: XR Right Tibia and Fibula Exam date and time: 08/07/2024 10:57 AM Age: 43 years old Clinical indication: Pain; Lower leg; Right; Additional info: Right lower leg pain TECHNIQUE: Imaging protocol: Radiologic exam of the right tibia and fibula. Views: 2 views. COMPARISON: CR XR ANKLE RT MIN 3V 08/07/2024 10:57 AM FINDINGS: Bones/joints: There is no evidence of acute fracture.There is no evidence of malalignment or dislocation. Soft tissues: Normal. IMPRESSION: There is no evidence of acute fracture.There is no evidence of malalignment or dislocation.
--- NOTE | 2024-08-07 10:48 | XR_ITS ---
PROCEDURE INFORMATION: Exam: XR Right Femur Exam date and time: 08/07/2024 10:57 AM Age: 43 years old Clinical indication: Pain; Thigh; Right; Additional info: Right femur pain TECHNIQUE: Imaging protocol: Radiologic exam of the right femur. Views: 2 views. COMPARISON: CR XR HIP RT 2-3V W/PELVIS 08/07/2024 10:57 AM FINDINGS: Bones/joints: There is a curvilinear lucency in the posterior cortex of the proximal femur. It is seen on the x-ray of the femur and the x-ray of the right hip. This may represent nondisplaced fracture.. Soft tissues: Unremarkable. IMPRESSION: There is a curvilinear lucency in the posterior cortex of the proximal femur. It is seen on the x-ray of the femur and the x-ray of the right hip. This may represent nondisplaced fracture..
--- NOTE | 2024-08-07 10:48 | XR_ITS ---
PROCEDURE INFORMATION: Exam: XR Right Hip Exam date and time: 08/07/2024 10:57 AM Age: 43 years old Clinical indication: Hip pain; Right hip; Additional info: Right hip pain TECHNIQUE: Imaging protocol: Radiologic exam of the right hip. Views: 2 or 3 views hip with pelvis when performed. COMPARISON: CT ABDOMEN PELVIS WO CON 06/23/2022 12:33 PM FINDINGS: Bones/joints: There is a curvilinear lucency through the posterior cortex of the proximal femur. This was seen on the x-ray of the femur as well. The lucency is seen best on the lateral of the right hip and is positioned 16 cm from the hip joint. CT may be helpful for further evaluation. Soft tissues: Unremarkable. IMPRESSION: There is a curvilinear lucency through the posterior cortex of the proximal femur. This was seen on the x-ray of the femur as well. The lucency is seen best on the lateral of the right hip and is positioned 16 cm from the hip joint. CT may be helpful for further evaluation.
--- NOTE | 2024-08-07 10:48 | XR_ITS ---
PROCEDURE INFORMATION: Exam: XR Right Ankle Exam date and time: 08/07/2024 10:57 AM Age: 43 years old Clinical indication: Pain; Ankle; Right; Additional info: Right ankle pain TECHNIQUE: Imaging protocol: Radiologic exam of the right ankle. Views: 3 or more views. COMPARISON: CR XR FOOT RT MIN 3V 08/07/2024 10:57 AM FINDINGS: Bones/joints: There is no evidence of acute fracture.There is no evidence of malalignment or dislocation. Soft tissues: Normal. IMPRESSION: There is no evidence of acute fracture.There is no evidence of malalignment or dislocation.
== END 2024-08-07 23:59 | disposition home or self-care (01) ==
LOC: RAD 10:46
PROVIDERS: PCP Nurse Practitioner Family; Visit Provider Nurse Practitioner Family
DX: M25.571 Pain in right ankle and joints of right foot (principal); M25.551 Pain in right hip; M79.661 Pain in right lower leg; M79.671 Pain in right foot; M89.8X5 Other specified disorders of bone, thigh
CPT/HCPCS: 73502; 73552; 73590; 73610; 73630

== ENCOUNTER 2024-08-10 08:27 | Outpatient (CLI) | payer OTHER, SELFPAY ==
--- NOTE | 2024-08-10 08:27 | CT_ITS ---
PROCEDURE INFORMATION: Exam: CT Right Lower Extremity, Thigh Exam date and time: 08/10/2024 8:31 AM Age: 43 years old Clinical indication: Pain; Hip; Right; Additional info: Abnormal right femur xray TECHNIQUE: Imaging protocol: CT of the right lower extremity without contrast was performed. Exam focused on the thigh. 3D rendering (Not supervised by radiologist): MIP and/or 3D reconstructed images were created by the technologist. Radiation optimization: All CT scans at this facility use at least one of these dose optimization techniques: automated exposure control; mA and/or kV adjustment per patient size (includes targeted exams where dose is matched to clinical indication); or iterative reconstruction. COMPARISON: CR XR FEMUR RT 2V 08/07/2024 10:57 AM FINDINGS: Bones/joints: There is no evidence of acute fracture. The described finding on the x-rays appears to be secondary to a vascular groove. There is minimal right hip degenerative change consisting of periarticular spurring and subchondral cyst formation. There is periarticular sclerosis noted along the right sacroiliac joint which is likely degenerative in nature. Soft tissues: Normal. IMPRESSION: 1. Minimal right hip degenerative changes. 2. Right sacroiliitis likely degenerative in nature.
--- NOTE | 2024-08-10 15:20 | US_ITS ---
PROCEDURE INFORMATION: Exam: US Soft Tissue Head and Neck, Thyroid Exam date and time: 08/10/2024 3:30 PM Age: 43 years old Clinical indication: Other: Nodules; Additional info: Multiple bilateral thyroid nodules TECHNIQUE: Imaging protocol: Real-time ultrasound scan of the neck with image documentation. Exam focused on the thyroid. COMPARISON: No relevant prior studies available. FINDINGS: Right thyroid lobe: Right lobe of the thyroid 5 x 1.9 x 1.5 cm. 5.6 cystic and solid nodule midpole right lobe of the thyroid. Spongiform nodule midpole right lobe of the thyroid 1.5 x 1.65 x 1.1 cm. Spongiform 0 points; hypoechoic 2 points; shape wider than tall 0 points; margin smooth 0 points; calcifications none 0 points Total 2 point TR 2 not suspicious. Left thyroid lobe: Left lobe of the thyroid 4.6 x 2.1 x 1.85 cm. Spongiform nodule midpole left lobe of the thyroid 2.3 x 1.5 x 1.4 cm. 0 point spongiform; hypoechoic 2 points; shape wider than tall 0 points; margin smooth 0 points; calcifications none 0 points . Total 2 point TR 2 not suspicious. Isthmus: Isthmus 3.7 mm IMPRESSION: 1. Spongiform nodule midpole right lobe of the thyroid 1.5 x 1.65 x 1.1 cm. Spongiform 0 points; hypoechoic 2 points; shape wider than tall 0 points; margin smooth 0 points; calcifications none 0 points Total 2 point TR 2 not suspicious. 2. Spongiform nodule midpole left lobe of the thyroid 2.3 x 1.5 x 1.4 cm. 0 point spongiform; hypoechoic 2 points; shape wider than tall 0 points; margin smooth 0 points; calcifications none 0 points . Total 2 point TR 2 not suspicious.
== END 2024-08-10 23:59 | disposition home or self-care (01) ==
LOC: RAD 08:27
PROVIDERS: PCP Nurse Practitioner Family; Visit Provider Nurse Practitioner Family
DX: M89.8X5 Other specified disorders of bone, thigh (principal); M25.551 Pain in right hip; E04.2 Nontoxic multinodular goiter
CPT/HCPCS: 73700; 76536

== ENCOUNTER 2024-08-24 15:33 | Outpatient (CLI) | payer OTHER, SELFPAY ==
[2024-08-24 14:26] LABS: Alanine Aminotransferase 16 U/L (12-78); Albumin Level 4.3 g/dl (3.5-5.0); Albumin/Globulin Ratio 1.7 (1.1-1.8); Alkaline Phosphatase 75 U/L (38-126); Anion Gap 15.6 mEq/L (5-15); Aspartate Amino Transferase 22 U/L (14-36); Bilirubin,Total 0.6 mg/dl (0.2-1.3); Blood Urea Nitrogen 12 mg/dl (7-17); Calcium 9.4 mg/dl (8.4-10.2); Carbon Dioxide 23 mmol/L (22.0-30.0); Chloride 106 mmol/L (98-107); Estimated Glomerular Filt Rate 79 ml/min (>60); GFR (African American) 96 ML/MIN (>60); Globulin 2.6 g/dL (1.3-3.2); Glucose 71 mg/dl (74-100); Potassium 4.6 mmoL/L (3.5-5.1); Sodium 140 mmol/L (136-145); Total Protein,Serum 6.9 g/dl (6.3-8.2)
[2024-08-24 14:34] LABS: Intact Parathyroid Hormone 96.8 pg/mL (7.5-53.5)
[2024-08-24 14:40] LABS: 25-OH Vitamin D, Total 50.7 ng/mL (30-100)
[2024-08-25 16:23] LABS: Calcium, Ionized 4.9 mg/dL (4.5-5.6)
== END 2024-08-24 23:59 | disposition home or self-care (01) ==
LOC: LAB.DROPOF 15:34
PROVIDERS: PCP Nurse Practitioner Family; Visit Provider Nurse Practitioner Family
DX: E21.3 Hyperparathyroidism, unspecified (principal)
CPT/HCPCS: 80053; 82306; 82330; 83970

== ENCOUNTER 2024-09-04 12:57 | Outpatient (CLI) | payer OTHER, SELFPAY ==
[2024-09-04 12:33] LABS: Microscopic, Urine URINE MICROSCOPIC (MICROSCOPIC)
[2024-09-04 14:23] LABS: Appearance,Urine CLEAR (Clear); Bilirubin,Urine Negative (Negative); Blood, Urine Negative (Negative); Color,Urine YELLOW (Yellow); Glucose,Urine (UA) Negative (Negative); Ketones,Urine Negative (Negative); Leukocyte Esterase,Urine Negative (Negative); Nitrate,Urine Negative (Negative); Protein,Urine Negative (Negative); Specific Gravity, Urine 1.015 (1.005-1.030); Urobilinogen,Urine 0.2 EU/dl (0.2)
[2024-09-04 15:20] LABS: Bacteria,Urine 2+ /lpf; WBC,Urine Occasional #/hpf (0-3)
== END 2024-09-04 23:59 | disposition home or self-care (01) ==
LOC: LAB.DROPOF 12:57
PROVIDERS: PCP Nurse Practitioner Family; Visit Provider Nurse Practitioner Family
DX: N89.8 Other specified noninflammatory disorders of vagina (principal)
CPT/HCPCS: 81001; 87086

== ENCOUNTER 2024-11-04 17:00 | Outpatient (RCR) | payer OTHER, SELFPAY ==
--- NOTE | 2024-10-27 18:25 | HMH.PTOPEV ---
PT Outpatient Evaluation Rehab PT Outpatient Evaluation Start: 10/27/24 16:04 Freq: Status: Active Protocol: Document 10/27/24 16:05 LORETTA (Rec: 10/27/24 18:25 LORETTA [id number]) E-signed By Dian Bowers, PT Outpatient Therapy Subjective History Subjective History Pt is a 44 y/o female who reports chronic R hip pain for ~2 years, denies known trauma or injury. Pt reports new onset of numbness of the R lateral hip to touch. Pt denies more distal paresthesia or bowel/bladder dysfunction. Pt had a R femur CT scan on 08/10/24 with impression of 1 . Minimal right hip degenerative changes. 2. Right sacroiliitis likely degenerative in nature. Pt reports chronic LBP as well, denies having imaging of the lumbar spine. Pt reports R hip pain is aggravated by twisting/stepping to the R side and laying on her sides. Pt reports slight increase in numbness with prolonged walking and sitting in certain positions. Pt reports popping of the front of right hip with lifting the leg that is briefly painful. Pt denies clicking, catching or locking of the R hip. Medical history: Hyperlipidemia New diagnosis of cancer in past 12 No months? Chief Complaint Pain,Paresthesia Symptom Type Ache,Dull Symptoms Relieved By Rest/Positioning Symptoms Aggravated By Twisting,Walking Current Functional Limitations Sleeping,Recreation Activity, Walking Symptom Description Intermittent Level of pain today (0-10) 1 Pain scale - at its best (0-10) 0 Pain scale - at its worst (0-10) 5 Lumbopelvic Eval Accessory Movement L-spine Vertebrae Accessory Movements Central P/A [place] that Elicit Symptoms L2 bilateral L3 bilateral L4 bilateral Range of Motion Lumbar Spine Active Flexion Range of 55 Motion (degrees) Lumbar Spine Active Extension Range of 20 Motion (degrees) Left Lumbar Spine Lateral Flexion Active 15 Range of Motion (degrees) Right Lumbar Spine Lateral Flexion 15 Active Range of Motion (degrees) Special Tests Hip Scouring (Quadrant) Test Positive Right Hip Darion (SALLY) Test Negative Right Hip Piriformis Test Positive Right Sciatic Nerve Tension Test Negative Left,Negative Right Unilateral Straight Leg Raise (Lasegue) Negative Left,Negative Right Test Sacroiliac Joint Compression Test Positive Right Sacroiliac Joint Distraction Test Positive Right Hip/Knee Eval Gait Observation General Gait Pattern Observation No Deviations/Normal Assistive Device Assistive Devices None / NA Palpation Tenderness right Knee Palpation Overall Comment 2/4 TTP of greater trochanter, piriformis/TFL, ITB Hip Palpation Findings Tenderness MMT Hip Flexion Strength Grade 4- Good- Hip Abduction Strength Grade 4 Good Hip Adduction Strength Grade 4 Good Hip Extension Strength Grade 4- Good- Knee Extension Strength Grade 5 Normal Knee Flexion Strength Grade 5 Normal ROM Hip Flexion w/Knee Flexed Active Range 110 of Motion (degrees) Hip External Rotation Active Range of 45 Motion (degrees) Hip Internal Rotation Active Range of 45 Motion (degrees) Lower Extremity Functional Index Activities Today, do you or would you have any difficulty at all with: a.Any of your usual work, housework or A little bit of difficulty school activities b. Your usual hobbies, recreational or A little bit of difficulty sporting activities c. Getting into or out of the bath No difficulty d. Walking between rooms No difficulty e. Putting on your shoes or socks No difficulty f. Squatting No difficulty g. Lifting an object, like a bag of A little bit of difficulty groceries from the floor h. Performing light activities around No difficulty your home i. Performing heavy activities around A little bit of difficulty your home j. Getting into or out of a car A little bit of difficulty k. Walking 2 blocks No difficulty l. Walking a mile No difficulty m. Going up or down 10 stairs (about 1 No difficulty flight of stairs) n. Standing for 1 hour A little bit of difficulty o. Sitting for 1 hour A little bit of difficulty p. Running on even ground A little bit of difficulty q. Running on uneven ground A little bit of difficulty r. Making sharp turns while running fast A little bit of difficulty s. Hopping Moderate difficulty t. Rolling over in bed Quite a bit of difficulty LEFI Score Lower Extremity Functional Index Score 65 Outpatient Therapy Assessment Impairments Problems/Impairmments Palpation Tenderness,Impaired Range of Motion,Impaired Strength,Impaired Walking, Subjective C/O Pain,Impaired Self Care/Self Management Prognosis Rehab Potential Good Clinical Impression Consistent with Diagnosis Yes Short Term Goals Number of Weeks 3 Decrease Subjective C/O Pain Yes Improve Self Care/Self Management Yes Patient to be Ind w/ HEP Yes Mold Insert Changer Goals Number of Weeks 6 Decreased Palpation Tenderness Yes: 0-1/4 TTP of R lateral hip complex Increase Range of Motion Yes: Improve R hip flexion AROM to 115 and lumbar flex to at least 70 Increase Strength Yes: Improve RLE strength to 4 -4+/5 grossly to assist with function Improve LEFI Score Yes: Improve score to 70-75/80 to improve overall QOL Decrease Subjective C/O Pain Yes: Improve pain at worst to 3/10 to improve overall QOL Outpatient Therapy Plan of Care Treatment Plan May Include Therapeutic Exercise Including Home Yes Exercise Program Manual Therapy Techniques Yes Neuromuscular Re-education Yes Therapeutic Activities to Return to Yes Previous Functional/Work Level Gait Training Yes ADL/Self Care Education Yes Mechanical Traction Yes Dry Needling Yes Thermal Modalities Yes Electrical Stimulation Yes Ultrasound/Phonophoresis Yes Iontophoresis Yes Massage Yes Eval/Re-Eval Yes Frequency Times per week 2 Duration Number of Weeks 4-6 Addendums This patient is a candidate for social No or vocational rehab? Patient/Guardian verbally acknowledges Yes understanding of treatment program and consents to further treatment? Patient/Guardian verbally acknowledges Yes understanding of diagnosis, prognosis and goals for treatment? Eval Complexity PT Charges 44464 - Low Complexity Shoulder/Elbow Eval Shoulder Objective Measurements Elbow Objective Measurements PHYSICIAN CERTIFICATION: I certify the specified therapy services for [facility] are required, authorized, and reviewed every 30 days.
== END 2024-11-04 23:59 | disposition home or self-care (01) ==
LOC: PT 17:00
PROVIDERS: Visit Provider Nurse Practitioner Family
DX: M25.551 Pain in right hip (principal)
CPT/HCPCS: 97014; 97110; 97163; G0283

== ENCOUNTER 2024-11-25 16:19 | Outpatient (RCR) | payer OTHER, SELFPAY ==
--- NOTE | 2024-11-25 18:31 | HMH.RHREAS ---
Rehab Reassessment Rehab OP Re-assessment Start: 11/25/24 16:24 Freq: Status: Active Protocol: Document 11/25/24 16:24 BELINDAJUAN (Rec: 11/25/24 18:31 LORETTA [id number]) E-signed By Dian Bowers PT Lower Extremity Functional Index Activities Today, do you or would you have any difficulty at all with: a.Any of your usual work, housework or No difficulty school activities b. Your usual hobbies, recreational or A little bit of difficulty sporting activities c. Getting into or out of the bath No difficulty d. Walking between rooms No difficulty e. Putting on your shoes or socks No difficulty f. Squatting A little bit of difficulty g. Lifting an object, like a bag of A little bit of difficulty groceries from the floor h. Performing light activities around No difficulty your home i. Performing heavy activities around A little bit of difficulty your home j. Getting into or out of a car No difficulty k. Walking 2 blocks No difficulty l. Walking a mile No difficulty m. Going up or down 10 stairs (about 1 No difficulty flight of stairs) n. Standing for 1 hour No difficulty o. Sitting for 1 hour No difficulty p. Running on even ground A little bit of difficulty q. Running on uneven ground Moderate difficulty r. Making sharp turns while running fast Moderate difficulty s. Hopping A little bit of difficulty t. Rolling over in bed Moderate difficulty LEFI Score Lower Extremity Functional Index Score 68 Rehab Re-assessment Subjective Subjective Pt reports she feels 60-70% improved since starting PT. Pt reports she has been unable to attend PT consistently due to being sick and being busy; however, reports compliance with HEP. Pt states she feels that the stretching is helping overall. Pt reports pain throughout the day is minimal to none but she continues to have pain at night time localized to the R lateral hip described as a burning sensation rated 8/10 at worst on VAS. Pt states this is exacerbated by lying or putting pressure on her R side . Pt also reports intermittent numbness of the R lateral hip as well. Objective Objective Notes Palpation: 2/4 TTP of R greater trochanter, piriformis , and comparable sign with palpation of L5-S1 Lumbar AROM: fex 65, ext 20, LF 15 R hip AROM: flex 110, IR/ER 45 Assessment Assessment Notes Pt has attended only 3 PT treatment sessions since her initial evaluation on 11/14/24 although reported compliance with HEP. Pt demonstrated slight improvement in lumbar flexion AROM and LEFS score this date compared to the initial evaluation. Pt continues to report severe burning pain and paresthesia of the right lateral hip at night time with comparable sign upon mobilization of L5- S1 this date. Overall the pt would continue to benefit from skilled PT to further improve subjective report of pain/ paresthesia, LE/core strength, and functional activity tolerance to improve overall QOL. Patient goals met ST/3 Goals Not Met p! at worst, LTG Revised Goals n/a Plan Plan Continue initial POC Frequency of Therapy 2x/week Duration of therapy 4 more weeks Time and Billing Re-Eval Time 10 Re-Eval Billing Units 0 Charge for PT reassessment? No Charge for OT reassessment? No PHYSICIAN CERTIFICATION: I certify the specified therapy services for [facility] are required, authorized, and reviewed every 30 days.
== END 2024-11-25 23:59 | disposition home or self-care (01) ==
LOC: PT 16:19
PROVIDERS: Visit Provider Nurse Practitioner Family
DX: M25.551 Pain in right hip (principal)
CPT/HCPCS: 97014; 97110; 97140; G0283

== ENCOUNTER 2024-12-03 09:50 | Outpatient (CLI) | payer OTHER, SELFPAY | END 2024-12-03 23:59 | disposition home or self-care (01) | LOC: RT 09:52 | PROVIDERS: PCP Nurse Practitioner Family; Visit Provider Internal Medicine | DX: R00.2 Palpitations (principal) | CPT/HCPCS: 93270 ==

== ENCOUNTER 2024-12-25 09:13 | Outpatient (CLI) | payer OTHER, SELFPAY ==
[2024-12-25 09:15] LABS: Basophils # 0.1 K/mm3 (0-0.2); Basophils % 0.9 % (0.1-2.0); Eosinophils # 0.1 K/mm3 (0.0-0.4); Eosinophils % 1.3 % (0.1-12.0); Hematocrit 37.4 % (37.0-47.0); Hemoglobin 11.8 g/dL (12.2-16.2); Lymphocytes # 2.4 K/mm3 (0.7-4.5); Lymphocytes % 33.9 % (10-50); Mean Corpuscular HGB Conc 31.6 g/dL (31.8-35.4); Mean Corpuscular Hemoglobin 24.8 pg (27.0-31.2); Mean Corpuscular Volume 78.6 fl (81-99); Monocytes # 0.7 K/mm3 (0.1-1.0); Monocytes % 10.2 % (1.7-9.3); Neutrophils # 3.7 K/mm3 (1.8-7.8); Neutrophils % 53.4 % (37.0-80.0); Platelet Count 492 K/mm3 (142-424); Red Blood Count 4.76 M/mm3 (4.20-5.40); Red Cell Distribution Width 14.5 % (11.5-17.5); White Blood Count 6.9 K/mm3 (4.8-10.8)
[2024-12-25 09:36] LABS: Alanine Aminotransferase 21 U/L (12-78); Albumin Level 4.7 g/dl (3.5-5.0); Alkaline Phosphatase 74 U/L (38-126); Aspartate Amino Transferase 27 U/L (14-36); Bilirubin,Direct 0.2 mg/dl (0.0-0.4); Bilirubin,Indirect 0.3 mg/dL (0.0-0.9); Bilirubin,Total 0.5 mg/dl (0.2-1.3); Bilirubin,Unconjugated 0.3 mg/dL (0.0-1.1); Blood Urea Nitrogen 11 mg/dl (7-17); Calcium 9.7 mg/dl (8.4-10.2); Carbon Dioxide 26 mmol/L (22.0-30.0); Chloride 107 mmol/L (98-107); Chol/HDL Ratio 4.7 (1-3.5); Cholesterol 217 mg/dl (140-200); Estimated Glomerular Filt Rate 79 ml/min (>60); GFR (African American) 95 ML/MIN (>60); Glucose 92 mg/dl (74-100); HDL Cholesterol 46 mg/dl (40-60); Magnesium 1.9 mg/dl (1.6-2.3); Sodium 139 mmol/L (136-145); Total Protein,Serum 7.6 g/dl (6.3-8.2); Triglycerides 173 mg/dl (30-150); VLDL Cholesterol 35 mg/dL (0-40)
[2024-12-25 09:46] LABS: Direct LDL Cholesterol 122.24 mg/dL (100-129)
[2024-12-25 10:08] LABS: Thyroid Stimulating Hormone 1.67 uIU/mL (0.465-4.68)
[2024-12-25 10:11] LABS: Troponin I < 0.01 ng/ml (0.00-0.034)
[2024-12-25 10:25] LABS: Free T4 (Free Thyroxine) 0.71 ng/dl (0.78-2.19)
== END 2024-12-25 23:59 | disposition home or self-care (01) ==
LOC: LAB.DROPOF 09:14
PROVIDERS: PCP Nurse Practitioner Family; Visit Provider Nurse Practitioner
DX: R07.89 Other chest pain (principal); E78.5 Hyperlipidemia, unspecified
CPT/HCPCS: 80048; 80061; 80076; 83735; 84439; 84443; 84484; 85025

== ENCOUNTER 2024-12-29 10:45 | Outpatient (CLI) | payer OTHER, SELFPAY ==
[2024-12-30 12:19] LABS: Estradiol 40.1 pg/mL (.); Progesterone 0.1 ng/mL (.)
[2025-01-07 16:24] LABS: Testosterone, Total, LC/MS 8.4 ng/dL (.)
== END 2024-12-29 23:59 | disposition home or self-care (01) ==
LOC: LAB.DROPOF 12-30 09:45
PROVIDERS: PCP Internal Medicine; Visit Provider Internal Medicine
DX: N95.1 Menopausal and female climacteric states (principal); F41.1 Generalized anxiety disorder
CPT/HCPCS: 82670; 84144; 84403

== ENCOUNTER 2025-01-12 13:52 | Outpatient (CLI) | payer OTHER, SELFPAY ==
--- NOTE | 2025-01-12 14:00 | CT_ITS ---
APPROVED REPORT Nursing Program Coordinator: CLINICAL INDICATION Chest Pain TECHNIQUE Image Acquisition: A 128 slice MDCT scanner (Netchemiaa View) was used for data acquisition. A noncontrast coronary calcium scan was performed. A CT attenuation threshold of 130 Hounsfield units (HU) was used for the detection of calcium in contiguous voxels of 1 sq mm in area to be counted as individual lesions. Bolus tracking in the ascending aorta with a threshold of 180 HU was performed. Immediately afterwards, ECG synchronized cardiac CT was then performed from the cardiac base to apex using retrospective gating with ECG tube current modulation. A total of 85 mL of Isovue 370 mg/mL contrast medium was administered at 5 mL/sec followed by a saline flush using a biphasic injection protocol. A tube voltage of 120 KVp was used. The patient received the following medications prior to the cardiac CT. 75 mg of oral metoprolol 2 mg of intravenous metoprolol 15 mg of oral ivabradine The average heart rate at the time of acquisition was 94 bpm and regular. Image Reconstruction Transaxial images were reconstructed at 0.67 mm slide thickness. Data was reviewed interactively on an advanced workstation capable of 2 and 3-dimensional displays in all conventional reconstruction formats, including multiplanar reformations, maximum intensity projections, curved multiplanar reformations, and volume rendered reconstructions. When applicable, selected routine images describing the relevant coronary anatomy and pathology were saved and sent to PACS. Complications None Technical Quality Overall image quality was suboptimal in the setting of elevated HR and blurring artifact. Coronary artery opacification was adequate. Total DLP (Dose-Length Product) is 1432.2 mGy-cm. The reported value represents the total of one or more individual components during the CT acquisition of this date and at this time, and as such, the same value may appear in more than one CT report depending on the interpreting/reporting physicians. COMPARISON None FINDINGS CT Coronary Calcium Scoring LMA (Left Main Artery) = 0 LAD (Left Anterior Descending) = 0 LCX (Left Coronary Circumflex) = 0 RCA (Right Coronary Artery) = 0 Total Calcium Score = 0 using the AJ-130 method. The interpretation of the calcium heart score is based on the following continuum*: 0 = no calcified plaque detected (risk of coronary artery disease is very low ??? less than 5%) 1-10 = calcium detected in extremely minimal levels (risk of coronary diseases is still low ??? less than 10%) 11-100 = mild levels of plaque detected with certainty (mild or minimal narrowing of heart arteries is likely) 101-400 = definite,at least moderate levels of plaque detected (relatively high risk of a heart attack within 3-5 years) >401-999 = extensive levels of plaque detected (high risk of heart attack, high levels of vascular disease are present, high likelihood of at least one significant coronary narrowing) *The calcium heart score quantifies the burden of coronary calcification/plaque in the coronary arteries. The calcium heart score is not able to evaluate the presence or burden of non-calcified (i.e. soft) plaque. There is no identifiable calcification in the aortic valve, mitral annulus or mitral valve, pericardium, or myocardium. Coronary CT Angiography The coronary arterial system is left dominant. Quantitative Stenosis Grading: Left Main (LM): The left main originates normally from the left sinus of Valsalva. The LM bifurcates into the left anterior descending artery and left circumflex artery. The LM is patent with no evidence of atherosclerosis. Left Anterior Descending (LAD) and Diagonal Branches: The LAD gives off 2 diagonal branch(es). The LAD and its branches are patent with no evidence of atherosclerosis. There is no evidence of LAD-myocardial bridge. Left Circumflex (LCX) and Obtuse Marginals (OM): The LCX gives off 2 Obtuse Marginal (OM) branch(es). Grossly, the LCX and its branches are patent with no evidence of atherosclerosis. Right Coronary Artery (RCA): The RCA originates normally from the right sinus of Valsalva. The RCA is a small caliber vessel and difficult to visualize in the setting of blurring artifact. Grossly, the RCA and its branches are patent with no evidence of atherosclerosis. Non-Coronary Cardiac Findings: Analysis of the left ventricular (LV) structure and function was performed after 3-D reconstruction of the LV from axial images, with user-corrected automatic contouring for assessment of LV volumes and user-defined reconstruction from oblique planes for measurement of 3-D cardiac structure and function. -The left ventricle systolic function is normal. -There is no left atrial appendage filling defect. Two right pulmonary veins and two left pulmonary veins drain normally into the left atrium. -No pericardial thickening or calcification. -Central and branch pulmonary arteries in the [id number] are unremarkable. -Thoracic aorta within the visualized thoracic aortic-branches in the [id number] is unremarkable. Extracardiac Structures No significant extra-cardiac findings. Note, however, that this study is focused on the cardiac findings. IMPRESSION -Technically difficult study due to elevated HR at the time of image acquisition and blurring artifact. Proximal segments of the coronary tree, especially proximal RCA, are difficult to visualize. This may affect the diagnostic interpretation of the study findings. -Absence of coronary calcification with an Agatston score = 0 using the AJ-130 method. -No obvious evidence of significant flow-limiting atherosclerosis of the coronary arteries. -No evidence of myocardial bridges or coronary anomalies. -CAD-RADS 0. Management recommendations per ACC/AHA guidelines*, as clinically appropriate. *Recommendations: CAD RADS 0: Reassurance. Consider non-atherosclerotic causes of chest pain. CAD RADS 1: Consider non-atherosclerotic causes of chest pain. Consider preventive therapy and risk factor modification. CAD RADS 2: Consider non-atherosclerotic causes of chest pain. Consider preventive therapy and risk factor modification, particularly for patients with nonobstructive plaque in multiple segments. CAD RADS 3: Consider further functional testing. Consider symptom-guided anti-ischemic and preventive pharmacotherapy as well as risk factor modification per published guideline statements. CAD RADS 4A: Consider further functional testing or invasive coronary angiography with revascularization per published guideline statements. Consider symptom-guided anti-ischemic and preventive pharmacotherapy as well as risk factor modification per published guideline statements. CAD RADS 4B: Invasive coronary angiography recommended with revascularization per published guideline statements. Consider symptom-guided anti-ischemic and preventive pharmacotherapy as well as risk factor modification per published guideline statements. CAD RADS 5: Consider invasive angiography and/or viability assessment with revascularization per published guideline statements. Consider symptom-guided anti-ischemic and preventive pharmacotherapy as well as risk factor modification per published guideline statements. CRITICAL RESULT None COMMUNICATION Per this written report The coronary and cardiac findings of this CCTA were reviewed, reported, and signed by Joaquin Mendiola MD (Flagger) Conclusion Electronically signed by : Reena Mendiola MD 01/12/2025 21:23:14
[2025-01-12 14:07] VITALS: BMI 29.0
[2025-01-12] MEDS: IVABRADINE HCL 7.5MG TABLET PO (14:13)
[2025-01-12] MEDS: METOPROLOL TARTRATE 25MG TABLET 75 MG (14:14)
[2025-01-12 14:26] VITALS: BP 115/70; PULSE 89; RESP 16; O2SAT 100
[2025-01-12 15:45] VITALS: BP 129/95; PULSE 73; RESP 17; O2SAT 100
[2025-01-12 15:50] VITALS: BP 122/80; PULSE 72; RESP 18; O2SAT 100
[2025-01-12 15:55] VITALS: BP 106/76; PULSE 76; RESP 18; O2SAT 100
[2025-01-12 16:00] VITALS: BP 116/80; PULSE 82; RESP 18; O2SAT 100
[2025-01-12] MEDS: 0.9 % SODIUM CHLORIDE 50 ML VIAL IV (16:01)
[2025-01-12] MEDS: SODIUM CHLORIDE 0.9% 10ML SYR (RAD ONLY) 10 ML IV (16:01)
[2025-01-12] MEDS: IOPAMIDOL-370 (76%);100ML BOTTLE 85 ML IV (16:01)
== END 2025-01-12 16:07 | disposition home or self-care (01) ==
LOC: RAD 13:52
PROVIDERS: PCP Nurse Practitioner Family; Visit Provider Internal Medicine
DX: R00.2 Palpitations (principal); R07.9 Chest pain, unspecified; K21.9 Gastro-esophageal reflux disease without esophagitis
CPT/HCPCS: 75574; Q9967

== ENCOUNTER 2025-01-28 15:00 | Outpatient (CLI) | payer OTHER, SELFPAY ==
[2025-01-28 10:02] LABS: Basophils # 0.1 K/mm3 (0-0.2); Basophils % 0.8 % (0.1-2.0); Eosinophils # 0.1 K/mm3 (0.0-0.4); Eosinophils % 1.2 % (0.1-12.0); Hematocrit 34.7 % (37.0-47.0); Hemoglobin 11.2 g/dL (12.2-16.2); Lymphocytes # 2.1 K/mm3 (0.7-4.5); Lymphocytes % 31.6 % (10-50); Mean Corpuscular HGB Conc 32.3 g/dL (31.8-35.4); Mean Corpuscular Hemoglobin 27.1 pg (27.0-31.2); Mean Platelet Volume 9.3 fl (7.4-10.4); Monocytes # 0.7 K/mm3 (0.1-1.0); Monocytes % 11.1 % (1.7-9.3); Neutrophils # 3.6 K/mm3 (1.8-7.8); Nucleated Red Blood Cells # 0 10^3/uL; Nucleated Red Blood Cells % 0 %; Platelet Count 486 K/mm3 (142-424); Red Blood Count 4.13 M/mm3 (4.20-5.40); Red Cell Distribution Width 15.8 % (11.5-17.5); Red Cell Distribution Width-SD 41.9 fL; White Blood Count 6.6 K/mm3 (4.8-10.8)
[2025-01-28 10:39] LABS: Albumin Level 4.5 g/dl (3.5-5.0); Chloride 105 mmol/L (98-107); Potassium 4.5 mmoL/L (3.5-5.1); Sodium 139 mmol/L (136-145)
[2025-01-28 10:41] LABS: Blood Urea Nitrogen 10 mg/dl (7-17); Estimated Glomerular Filt Rate 79 ml/min (>60); GFR (African American) 95 ML/MIN (>60)
[2025-01-28 10:42] LABS: Alanine Aminotransferase 19 U/L (12-78); Alkaline Phosphatase 87 U/L (38-126); Anion Gap 14.5 mEq/L (5-15); Aspartate Amino Transferase 25 U/L (14-36); Bilirubin,Indirect 0.4 mg/dL (0.0-0.9); Bilirubin,Total 0.4 mg/dl (0.2-1.3); Bilirubin,Unconjugated 0.3 mg/dL (0.0-1.1); Calcium 9.5 mg/dl (8.4-10.2); Carbon Dioxide 24 mmol/L (22.0-30.0); Chol/HDL Ratio 4.3 (1-3.5); Cholesterol 218 mg/dl (140-200); Glucose 85 mg/dl (74-100); HDL Cholesterol 51 mg/dl (40-60); Iron 46 ug/dL (37-170); Total Protein,Serum 7.3 g/dl (6.3-8.2); Triglycerides 220 mg/dl (30-150); VLDL Cholesterol 44 mg/dL (0-40)
[2025-01-28 10:43] LABS: Magnesium 2.1 mg/dl (1.6-2.3)
[2025-01-28 10:53] LABS: Direct LDL Cholesterol 124.96 mg/dL (100-129); Total Iron Binding Capacity 471 ug/dL (265-497)
[2025-01-28 10:58] LABS: Free T4 (Free Thyroxine) 0.83 ng/dl (0.78-2.19)
[2025-01-28 11:12] LABS: Thyroid Stimulating Hormone 2.21 uIU/mL (0.465-4.68)
[2025-01-28 11:16] LABS: Ferritin 4.91 ng/ml (6.24-137)
[2025-01-28 11:41] LABS: Intact Parathyroid Hormone 86.2 pg/mL (7.5-53.5)
== END 2025-01-28 23:59 | disposition home or self-care (01) ==
LOC: LAB.DROPOF 15:01
PROVIDERS: PCP Internal Medicine; Visit Provider Internal Medicine
DX: N95.1 Menopausal and female climacteric states (principal); R12 Heartburn; R79.89 Other specified abnormal findings of blood chemistry; E78.5 Hyperlipidemia, unspecified; R53.83 Other fatigue; E21.3 Hyperparathyroidism, unspecified; E61.1 Iron deficiency; Z13.1 Encounter for screening for diabetes mellitus
CPT/HCPCS: 80048; 80061; 80076; 82306; 82728; 83540; 83550; 83735; 83970; 84439; 84443; 85025

== ENCOUNTER 2025-02-12 11:22 | Outpatient (CLI) | payer OTHER, SELFPAY ==
[2025-02-12] MEDS: SODIUM CHLORIDE 0.9% 50ML BAG 50 ML IV (11:36)
[2025-02-12] MEDS: IRON SUCROSE COMPLEX 200 MG in 0.9 % SODIUM CHLORIDE 100 ML 220 MG IV (11:36)
[2025-02-12 11:40] VITALS: BP 128/76; PULSE 72; RESP 17; O2SAT 100
[2025-02-12 12:20] VITALS: BP 124/75; PULSE 70; RESP 17
== END 2025-02-12 12:30 | disposition home or self-care (01) ==
LOC: INF 11:23
PROVIDERS: PCP Internal Medicine; Visit Provider Nurse Practitioner Family
DX: D50.9 Iron deficiency anemia, unspecified (principal)
CPT/HCPCS: 96365; J1756

== ENCOUNTER 2025-02-18 11:26 | Outpatient (CLI) | payer OTHER, SELFPAY ==
[2025-02-18] MEDS: SODIUM CHLORIDE 0.9% 50ML BAG 50 ML IV (11:38)
[2025-02-18] MEDS: SODIUM CHLORIDE 0.9% 10ML FLUSH SYRINGE 10 ML IV (11:38)
[2025-02-18 11:39] VITALS: BP 128/79; PULSE 80; RESP 16; TEMP 36.8; O2SAT 100
[2025-02-18] MEDS: IRON SUCROSE COMPLEX 200 MG in 0.9 % SODIUM CHLORIDE 100 ML 220 MG IV (11:39)
[2025-02-18 12:20] VITALS: BP 128/83; PULSE 72; RESP 16; TEMP 36.8; O2SAT 100
== END 2025-02-18 12:25 | disposition home or self-care (01) ==
LOC: INF 11:28
PROVIDERS: PCP Nurse Practitioner Family; Visit Provider Nurse Practitioner Family
DX: D50.9 Iron deficiency anemia, unspecified (principal)
CPT/HCPCS: 96365; J1756

== ENCOUNTER 2025-02-25 11:27 | Outpatient (CLI) | payer OTHER, SELFPAY ==
[2025-02-25] MEDS: IRON SUCROSE COMPLEX 200 MG in 0.9 % SODIUM CHLORIDE 100 ML 220 MG IV (11:42)
[2025-02-25] MEDS: SODIUM CHLORIDE 0.9% 50ML BAG 50 ML IV (11:43)
[2025-02-25 11:45] VITALS: BP 115/74; BP 121/83; PULSE 77; PULSE 78; RESP 18; O2SAT 99
== END 2025-02-25 11:45 | disposition home or self-care (01) ==
LOC: INF 11:27
PROVIDERS: PCP Nurse Practitioner Family; Visit Provider Nurse Practitioner Family
DX: D50.9 Iron deficiency anemia, unspecified (principal)
CPT/HCPCS: 96365; J1756

== ENCOUNTER 2025-03-04 14:51 | Outpatient (CLI) | payer OTHER, SELFPAY ==
[2025-03-04 15:05] VITALS: BP 118/92; PULSE 96; RESP 17
[2025-03-04] MEDS: IRON SUCROSE COMPLEX 200 MG in 0.9 % SODIUM CHLORIDE 100 ML 220 MG IV (15:05)
[2025-03-04] MEDS: SODIUM CHLORIDE 0.9% 50ML BAG 50 ML IV (15:05)
[2025-03-04 15:40] VITALS: BP 117/82; PULSE 92; RESP 17
== END 2025-03-04 15:55 | disposition home or self-care (01) ==
LOC: INF 14:52
PROVIDERS: PCP Nurse Practitioner Family; Visit Provider Nurse Practitioner Family
DX: D50.9 Iron deficiency anemia, unspecified (principal)
CPT/HCPCS: 96365; J1756

== ENCOUNTER 2025-03-11 11:44 | Outpatient (CLI) | payer OTHER, SELFPAY ==
[2025-03-11 11:57] VITALS: BP 129/82; PULSE 78; RESP 18; TEMP 37; O2SAT 100
[2025-03-11] MEDS: IRON SUCROSE COMPLEX 200 MG in 0.9 % SODIUM CHLORIDE 100 ML 220 MG IV (11:57)
[2025-03-11] MEDS: SODIUM CHLORIDE 0.9% 10ML FLUSH SYRINGE 10 ML IV (11:57)
[2025-03-11] MEDS: SODIUM CHLORIDE 0.9% 50ML BAG 50 ML IV (11:57)
[2025-03-11 12:40] VITALS: BP 127/73; PULSE 72; RESP 18; O2SAT 99
== END 2025-03-11 12:47 | disposition home or self-care (01) ==
LOC: INF 11:45
PROVIDERS: PCP Nurse Practitioner Family; Visit Provider Nurse Practitioner Family
DX: D50.9 Iron deficiency anemia, unspecified (principal)
CPT/HCPCS: 96365; J1756

== ENCOUNTER 2025-04-21 14:21 | Outpatient (CLI) | payer OTHER, SELFPAY ==
[2025-04-21 14:15] LABS: Hematocrit 39.8 % (37.0-47.0); Hemoglobin 13.0 g/dL (12.2-16.2); Immature Granulocytes % 0.5 %; Mean Corpuscular HGB Conc 32.7 g/dL (31.8-35.4); Mean Corpuscular Hemoglobin 26.9 pg (27.0-31.2); Mean Corpuscular Volume 82.4 fl (81-99); Nucleated Red Blood Cells % 0 %; Platelet Count 434 K/mm3 (142-424); Red Blood Count 4.83 M/mm3 (4.20-5.40); Red Cell Distribution Width-SD 49.3 fL; White Blood Count 7.8 K/mm3 (4.8-10.8)
--- OUTSIDE RECORDS SUMMARY | 2025-04-21 14:23 | XMS_ITS | Encounter Summary ---
Author Organization Healthcare Address [address] 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 Name Role Phone Desiree Bui FLEXO FOLDER GLUER OPERATOR Primary Care Provider [phone] Encounter Details Date Type Department Care Team (Late st Contact Info) Description 08/10/2024 Orders Only External Location [address] [place] [address] Desiree Bui, FLEXO FOLDER GLUER OPERATOR [address] [id number] Social History Tobacco Use Types Packs/Day Years Used Date Smoking Tobacco: Never Smokeless Tobacco: Never PHQ-2 Answer Date Recorded Patient Health Questionnaire-2 Score 0 07/29/2024 Comments Unknown Sex and Gender Information Value Date Recorded Sex Assigned at Not on file Legal Sex Female 8:51 PM EDT Gender Identity Not on file Sexual Orientation Not on file documented as of this encounter Plan of Treatment Upcoming Encounters Date Type Department Care Team (Late st Contact Info) Description 11/03/2025 11:00 AM EST Appointment [facility] Ultrasound [address] [place] [address] 11/03/2025 1:00 PM EST Office Visit Medical Office Building [facility] [address], [address] [place] [address] May Patel, FLEXO FOLDER GLUER OPERATOR [address] [facility] [address] [place] [address] documented as of this encounter Procedures Procedure Name Priority Date/Time Associated Diagnosis Comments US OUTSIDE IMAGES 08/10/2024 3:30 PM EDT documented in this encounter Results * US OUTSIDE IMAGES (08/10/2024 3:30 PM EDT) Anatomical Region Laterality Modality Ultrasound 08/10/2024 3:30 PM EDT us Desiree Bui APRN IMG US PROCEDURES Final Resul t documented in this encounter Visit Diagnoses Not on filedocumented in this encounter Care Teams Artificial Snow Making Machine Operator Relationship Specialty Start Date End Date Desiree Bui APRN [address] [place] [address] PCP - General 07/29/24 documented as of this encounter
--- OUTSIDE RECORDS SUMMARY | 2025-04-21 14:23 | XMS_ITS | Clinical Summary ---
Author Organization [facility] Address [address] [place] [address] Care Team Providers Care Library Serials Assistant Name Role Phone HaoDesiree Eloisa MARX Primary Care Provider [phone] Allergies Active Allergy Reactions Criticality Noted Date Comments Butorphanol Other - please docum ent in the comment field,Nausea And Vomiting Medium 03/27/2022 Magnesium-Containing Compounds Anaphylaxis,Shortness of breath High 03/27/2022 Medications cyclobenzaprine (Flexeril) 10 MG tablet Take 1 tablet (10 mg) by mouth 2 (two) times a day if needed for muscle spasms. 06/18/2024 Active Linzess 145 MCG capsule Take 1 capsule (145 mcg) by mouth 1 (one) time each day before breakfast. 07/14/2024 Active rosuvastatin (Crestor) 10 MG tablet Take 1 tablet (10 mg) by mouth 1 (one) time each day. 05/01/2024 Active traZODone (Desyrel) 50 MG tablet Take 1 tablet (50 mg) by mouth 1 (one) time each day. 04/23/2024 Active Active Problems Problem Noted Date Diagnosed Date Hyperparathyroidism 07/30/2024 Brisk deep tendon reflexes 07/27/2024 Diaphoresis 07/27/2024 Dyspnea 07/27/2024 Elevated platelet count 07/27/2024 Headache 07/27/2024 Iron deficiency 07/27/2024 Low back strain 07/27/2024 Palpitations 07/27/2024 Plantar fasciitis of right foot 07/27/2024 Sacroiliitis 07/27/2024 Spell of abnormal behavior 07/27/2024 PVC's (premature ventricular contractions) 10/01 Immunizations Immunization Administration Dates Next Due Influenza, Unspecified 10/16/2016 Influenza, injectable, quadrivalent, preservativ e free 07/04/2016 Family History Medical History Relation Name Comments Prostate cancer Father Multiple sclerosis Maternal Grandfather Breast cancer Maternal Grandmother Diabetes Maternal Grandmother Brain Tumor Mother Parathyroid disease Mother colorectal cancer Mother's Brother Heart attack Paternal Grandfather Heart disease Paternal Grandfather Liver cancer Paternal Grandmother Lung cancer Paternal Grandmother Relation Name Status Comments Father Maternal Grandfather Maternal Grandmother Mother Mother's Brother Paternal Grandfather Paternal Grandmother Social History Tobacco Use Types Packs/Day Years Used Date Smoking Tobacco: Never Smokeless Tobacco: Never PHQ-2 Answer Date Recorded Patient Health Questionnaire-2 Score 0 07/29/2024 Comments Unknown Sex and Gender Information Value Date Recorded Sex Assigned at Not on file Legal Sex Female 8:51 PM EDT Gender Identity Not on file Sexual Orientation Not on file Last Filed Vital Signs Vital Sign Reading Time Taken Comments Blood Pressure 118/87 07/29/2024 10:32 AM EDT Pulse 74 07/29/2024 10:32 AM EDT Temperature 36.7 C (98 F) 07/29/2024 10:32 AM EDT Respiratory Rate - - Oxygen Saturation 98% 07/29/2024 10:32 AM EDT Inhaled Oxygen Concentration - - Weight 84.1 kg (185 lb 6.5 oz) 07/29/2024 10:32 AM EDT Height 167.6 cm (5' 6 ) 07/29/2024 10:32 AM EDT Body Mass Index 29.93 07/29/2024 10:32 AM EDT Plan of Treatment Upcoming Encounters Date Type Department Care Team (Late st Contact Info) Description 11/03/2025 11:00 AM EST Appointment [facility] Ultrasound [address], [address] [place] [address] 11/03/2025 1:00 PM EST Office Visit Medical Office Building Surgical Specialties [address] [facility], [address] [place] [address] May Patel S, TELEPHONE INSTRUMENT SUPERVISOR [address] [address] Health Maintenance Due Date Last Done Comments [facility]-HIV Screening 1982 [facility]-Hepatitis C Screening 1982 [facility]-Infant/Child/Adol SDOH Screenings 1982 [facility]-Obesity Intervention 1988 [facility]-Varicella Vaccines (1 of 2 - 13+ 2-dose series) 1995 HPV Vaccines (1 - 3-dose series) 1997 [facility]- SDOH Screenings 2000 [facility]-Adult SDOH Screenings 2000 [facility]-DTaP,Tdap,and Td Vaccine s (1 - Tdap) 2001 [facility]-Hepatitis B Vaccines (1 of 3 - 19+ 3-dose series) 2001 [facility]-HPV/Cotest 03/21/2014 03/21/2009 [id number]-10 Vaccine ( season) 2024 08/18/2021, 11/18/2020, 10/18/2020 [facility]-Influenza Vaccine (#1) 06/14/202510/16, 07/04/2016 [facility]-Depression Screening 07/29/2025 07/29/2024 [facility]-Cervical Cancer Screening 08/06/2026 [facility]-Pap Smear 08/06/2026 08/06/2023, 03/21/2009 [facility]-Zoster Vaccines (1 of 2) 2032 [facility]-HIB Vaccines Aged Out No longer e ligible based on patient's age to complete this topic [facility]-Hepatitis A Vaccines Aged Out No longer eligible based on patient's age to complete this topic [facility]-IPV Vaccines Aged Out No longer e ligible based on patient's age to complete this topic [facility]-Pneumococcal Vaccine: Pediatrics (0 to 5 Years) and At-Risk Patients (6 to 49 Years) Aged Out No longer eligible b ased on patient's age to complete this topic [facility]-Rotavirus Vaccines Aged Out No lo nger eligible based on patient's age to complete this topic Procedures Procedure Name Priority Date/Time Associated Diagnosis Comments CYTO DATA CONVERSION Routine 03/21/2009 12:00 AM EDT from Last 3 Months or Most Recently Relevant to Health Maintenance Results * (ABNORMAL) Cytology (03/21/2009 12:00 AM EDT) 03/21/2009 03/21/2009 1:0 2 PM EDT Narrative SUNQUEST - 03/22/2009 10:26 PM EDT [facility] MR #: [id number] [facility] [address] [place], [place] [address] 1980 (Age: 28) FW Collect Date: 03/21/2009 00:00 Receipt Date: 03/21/2009 13:02 Page 1 DEPARTMENT OF PATHOLOGY AND LABORATORY MEDICINE CYTOPATHOLOGY REPORT Email: [email or web address] [phone] ATTENDING MD/Practitioner: Molly Sun Jr., Service: [facility] Location: [facility] Reported: 03/22/2009 22:26 Collected: 03/21/2009 00:00 INTERPRETATION A. 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 SATISFACTORY FOR EVALUATION; ENDOCERVICAL/ TRANSFORMATION ZONE COMPONENT PRESENT. Slide scanned and imaged by [employer] ThinPrep Imaging System with manual review of all selected wills. Please correlate with corresponding biopsy results ([id number]). Electronically Signed Out COURTNEY Ibarra(ASCP) Marcos Bonner MD Cervical cytology is a screening test primarily for squamous cancers and precursors and has associated false negative and positive results. New technologies such as liquid based sampling may decrease but will not eliminate all false negative results. Regular screening and follow-up of unexplained clinical signs and symptoms are recommended to minimize false negative results. Please see the ASCCP website (www.asccp.org) for followup recommendations. If HPV testing was requested, correlation with the results is suggested (please call Microbiology at [phone] for results). CLINICAL INFORMATION: Menstrual History: Cyclic Date of Last Menstrual Period: 01/24/09 Contraceptive History: control pills Other Clinical Conditions: Patient has a history of previous abnormal pap Previous ob/gyn physician bx/surgery SPECIMEN DESCRIPTION: A: THIN PREP (CERVICAL/VAGINAL) THIN PREP PROCESS CELLULAR ENHANCEMENT ICD: 622.10 DYSPLASIA OF CERVIX, UNSPECIFIED F: A; DX IMAGE 62430, 63075 C\V (PO) SNOMED CODES: A; [id number] In cases where a pathologist has signed out the report, the service has been rendered in part by a resident. The signing pathologist has performed and is responsible for the reported pathologic evaluation. us Michael Sun MD LAB PATHOLOGY ORDERABLES Fi nal Result SUNQUEST from Last 3 Months or Most Recently Relevant to Health Maintenance Insurance Care Teams Library Serials Assistant Relationship Specialty Start Date End Date Desiree Bui APRN [address] [place] [address] PCP - General 07/29/24
--- OUTSIDE RECORDS SUMMARY | 2025-04-21 14:23 | XMS_ITS | Encounter Summary ---
Author Organization Healthcare Address [address] [place] [address] Care Team Providers Care Children'S Literature Professor Name Role Phone Dawood Mahan MD Primary Care Provider [phone] Desiree Bui APRN Primary Care Provider [phone] Encounter Details Date Type Department Care Team (Late st Contact Info) Description 02/04/2023 Orders Only External Location [address] [place] [address] Provider, External Social History Tobacco Use Types Packs/Day Years Used Date Smoking Tobacco: Never Assessed Comments Unknown Sex and Gender Information Value Date Recorded Sex Assigned at Not on file Legal Sex Female 8:51 PM EDT Gender Identity Not on file Sexual Orientation Not on file documented as of this encounter Plan of Treatment Upcoming Encounters Date Type Department Care Team (Late st Contact Info) Description 11/03/2025 11:00 AM EST Appointment [facility] Ultrasound [address] [place] [address] 11/03/2025 1:00 PM EST Office Visit Medical Office Building Surgical Specialties [address], [address] [place] [address] May Patel APRN [address] [place] [address] documented as of this encounter Procedures Procedure Name Priority Date/Time Associated Diagnosis Comments NM OUTSIDE IMAGES 02/04/2023 9:25 AM EDT documented in this encounter Results * NM OUTSIDE IMAGES (02/04/2023 9:25 AM EDT) Anatomical Region Laterality Modality Nuclear Medicine 02/04/2023 9:25 AM EDT us External Provider IMG NM PROCEDURES Final Result documented in this encounter Visit Diagnoses Not on filedocumented in this encounter Care Teams Children'S Literature Professor Relationship Specialty Start Date End Date Dawood Mahan MD [address] [place] [address] PCP - General 02/24/21 07/28/24 Desiree Bui APRN [address] [place] [address] PCP - General 07/29/24 documented as of this encounter
--- OUTSIDE RECORDS SUMMARY | 2025-04-21 14:23 | XMS_ITS | Encounter Summary ---
Author Organization [facility] [place] [address] [place] [address] Care Team Providers Care General I Farmworker Name Role Phone Dawood Mahan Primary Care Provider [phone] Javed Early MD Unavailable Encounter Details Date Type Department Care Team (Late st Contact Info) Description 10/25/2016 Orders Only [facility] [address] [facility] [address] [place] [address] Javed Early MD [address] [place], [place] [id number] Social History Tobacco Use Types Packs/Day Years Used Date Smoking Tobacco: Never Smokeless Tobacco: Never Alcohol Use Standard Drinks/Week Comments No 0 (1 standard drink = 0.6 oz pur e alcohol) Comments No Sex and Gender Information Value Date Recorded Sex Assigned at Not on file Legal Sex Female 2:26 PM EDT Gender Identity Not on file Sexual Orientation Not on file documented as of this encounter Functional Status * Cognitive and Functional Status Question Answer Date of Assessment Author Is the person deaf or does he/she have serious difficulty hearing? No 10/26/2016 10:11 AM Evelin Sapp RN Is the person blind or does he/she have serious difficulty seeing even when wearing glasses? No 10/26/2016 10:11 AM Evelin Sapp RN Does this person have seriou s difficulty walking or climbing stairs? No 10/26/2016 10:11 AM Evelin Sapp RN Does this person have difficulty dressing or bathing? No 10/26/2016 10:11 AM Evelin Nunez RN documented as of this encounter Mental Status * Cognitive and Functional Status Question Answer Entry Date Author Because of a physical, menta l or emotional condition, does this person have difficulty doing errands alone such as visiting a doctor's office or shopping? No 10/26/2016 10:11 AM Evelin Sapp RN Because of a physical, menta l or emotional condition, does this person have serious difficulty concentrating, remembering or making decisions? No 10/26/2016 10:11 AM Evelin Sapp RN documented in this encounter Plan of Treatment Not on file documented as of this encounter Procedures Procedure Name Priority Date/Time Associated Diagnosis Comments EP LAB RECORDINGS Routine 10/25/2016 7:34 AM EST documented in this encounter Results * EP LAB RECORDINGS (10/25/2016 7:34 AM EST) 10/25/2016 7:34 AM EST Javed Early MD CARDIAC CATH ORDERABLES Final Result Performing Organization Address City/State/[facility] Co de Phone Number [facility] [address] [place] [address] documented in this encounter Visit Diagnoses Not on filedocumented in this encounter Care Teams General I Farmworker Relationship Specialty Start Date End Date Dawood Mahan [address] [place] [phone] PCP - General Family Medicine 08/16/16 Javed Early MD [address] [place] [address] Consulting Physician Internal Medicine - Clinical Cardiac Electrophysiology 10/01/16 documented as of this encounter
--- OUTSIDE RECORDS SUMMARY | 2025-04-21 14:23 | XMS_ITS | Encounter Summary ---
Author Organization Healthcare Address [address] [place] [address] Care Team Providers Care Group Home Worker Name Role Phone Dawood Mahan MD Primary Care Provider [phone] Desiree Bui APRN Primary Care Provider [phone] Encounter Details Date Type Department Care Team (Late st Contact Info) Description 02/04/2023 Orders Only External Location [address] [place] [address] Provider, External Social History Tobacco Use Types [...] Info) Description 11/03/2025 11:00 AM EST Appointment [facility] Ultrasound [address] [place] [address] 11/03/2025 1:00 PM EST Office Visit Medical Office Building Surgical Specialties [address], [address] [place] [address] Mya Patel APRN [address] [place] [address] documented as of this encounter [...] on filedocumented in this encounter Care Teams Group Home Worker Relationship Specialty Start Date End Date Dawood Mahan MD [address] [place] [address] PCP - General 02/24/21 07/28/24 Desiree Bui APRN [address] [place] [address] PCP - General 07/29/24 documented as of this encounter
--- OUTSIDE RECORDS SUMMARY | 2025-04-21 14:23 | XMS_ITS | Clinical Summary ---
Author Organization [facility] Address [address] [facility] [address] [place] [address] Phone Care Team Providers Care Convolute Tube Winder Name Role Phone Dawood Mahan Primary Care Provider [phone] aJved Early MD Unavailable [phone] Allergies Active Allergy Reactions Criticality Noted Date Comments Magnesium Anaphylaxis High Butorphanol Tartrate Nausea And Vomiting Medications ibuprofen (ADVIL;MOTRIN) 800 mg Oral Tablet 200 mg every 6 hours as needed. Reported on 12/06/2016 07/04/2016 Active ORTHO TRI-CYCLEN, 28, 0.18/0.215/0.25 mg-35 mcg (28) Oral Tablet Take 1 Tab by mouth daily. 2016 Active DOCOSAHEXANOIC ACID/EPA (FISH OIL ORAL) Take by mouth. Active Active Problems Problem Noted Date Diagnosed Date S/P ablation of ventricular arrhythmia 7 Overview (10/25/2016): PVC's ablation on 10/25/[address] Early PVC's (premature ventricular contractions) 10/01 Immunizations Immunization Administration Dates Next Due Influenza Patient Reported 10/16/2016 Surgical History Surgery Date Site/Laterality Comments SECTION X 2 ANKLE SURGERY Right ligament repair DENTAL SURGERY 10/14/2001 - 10/13/2002 wisdom teeth ABLATION OF DYSRHYTHMIC FOCUS 10/25/2016 PVC ablation location [facility] by Dr. Early Medical History Medical History Date Comments Premature ventricular contractions Post-operative nausea and vomiting Family History Medical History Relation Name Comments Cancer Father stage 4 prostat e Diabetes Father Anesth Problems Mother severe n/v Relation Name Status Comments Father Alive Mother Alive Social History Tobacco Use Types Packs/Day Years Used Date Smoking Tobacco: Never Smokeless Tobacco: Never Tobacco Cessation:Counseling Given: No Alcohol Use Standard Drinks/Week Comments No 0 (1 standard drink = 0.6 oz pur e alcohol) Comments No Sex and Gender Information Value Date Recorded Sex Assigned at Not on file Legal Sex Female 2:26 PM EDT Gender Identity Not on file Sexual Orientation Not on file Obstetrics History Last Filed Vital Signs Vital Sign Reading Time Taken Comments Blood Pressure 112/82 06/14/2017 2:51 PM EDT Pulse 100 06/14/2017 2:51 PM EDT Temperature 36.8 C (98.2 F) 10/26/2016 6:16 AM EST Respiratory Rate 18 10/26/2016 9:47 AM EST Oxygen Saturation 100% 06/14/2017 2:51 PM EDT Inhaled Oxygen Concentration - - Weight 74 kg (163 lb 3.2 oz) 06/14/2017 2:51 PM EDT Height 167.6 cm (5' 6 ) 06/14/2017 2:51 PM EDT Body Mass Index 26.34 06/14/2017 2:51 PM EDT Plan of Treatment Health Maintenance Due Date Last Done Comments DTaP/TDaP/Td (1 - Tdap) 2001 Hepatitis B Vaccine (1 of 3 - 19+ 3-dose series) 2001 HPV/Pap Cotest 2012 Annual Wellness Exam 12/06/2017 12/06/2016 (Postponed) Cervical Cancer Screening 12/06/2019 Pap Smear 12/06/2019 12/06/2016 (Postponed) Breast Cancer Screening 2022 COVID-19 Vaccine ( - 2023-2 5 season) 2024 Influenza Vaccine (#1) 2025 10/16/2016 Meningococcal B Vaccine Aged Out No l onger eligible based on patient's age to complete this topic Pneumococcal Vaccine 0-49 Aged Out No longer eligible based on patient's age to complete this topic Insurance [facility] PLUS [facility] PLUS Advance Directives For more information, please contact: [phone] * Full Code (Latest Code Status on File) Date Activated Date Inactivated Comments 10/26/2016 9:17 AM 10/26/2016 2:42 PM Care Teams Convolute Tube Winder Relationship Specialty Start Date End Date Dawood Mahan [address] [place] [id number] PCP - General Family Medicine 08/16/16 Javed Early MD [address] [place] [address] [place] [address] Consulting Physician Internal Medicine - Clinical Cardiac Electrophysiology 10/01/16
--- OUTSIDE RECORDS SUMMARY | 2025-04-21 14:23 | XMS_ITS | Encounter Summary ---
Author Organization Healthcare Address [address] [place] [address] Care Team Providers Care Referral Management Liaison Name Role Phone Dawood Mahan MD Primary Care Provider [phone] Desiree Bui APRN Primary Care Provider [phone] Encounter Details Date Type Department Care Team (Late st Contact Info) Description 02/04/2023 Orders Only External Location [address] [place] [address] Provider, External Social History Tobacco Use Types [...] Info) Description 11/03/2025 11:00 AM EST Appointment [facility] Ultrasound [address] [place] [address] 11/03/2025 1:00 PM EST Office Visit Medical Office Building Surgical Specialties [address], [address] [place] [address] May Patel APRN [address] [place] [address] documented as of this encounter [...] on filedocumented in this encounter Care Teams Referral Management Liaison Relationship Specialty Start Date End Date Dawood Mahan MD [address] [place] [address] PCP - General 02/24/21 07/28/24 Desiree Bui APRN [address] [place] [address] PCP - General 07/29/24 documented as of this encounter
[2025-04-21 14:34] LABS: Iron 73 ug/dL (37-170)
[2025-04-21 14:50] LABS: Total Iron Binding Capacity 335 ug/dL (265-497)
[2025-04-21 15:11] LABS: Ferritin 81.5 ng/ml (6.24-137)
== END 2025-04-21 23:59 | disposition home or self-care (01) ==
LOC: LAB.DROPOF 14:22
PROVIDERS: PCP Nurse Practitioner Family; Visit Provider Nurse Practitioner Family
DX: D50.9 Iron deficiency anemia, unspecified (principal)
CPT/HCPCS: 82728; 83540; 83550; 85025

== ENCOUNTER 2025-06-16 08:20 | Emergency (ER) | payer OTHER, SELFPAY ==
--- OUTSIDE RECORDS SUMMARY | 2025-05-20 14:10 | XMS_ITS | Encounter Summary ---
[facility] Address [address] [place] [id number] Care Team Providers Care Landscape Nurseryman Name Role Phone Nayeli Lopez APRN Primary Care Provider Reason for Visit * Reason Comments Pre-op Exam Encounter Details Date Type Department Care Team (Late st Contact Info) Description 05/20/2025 2:10 PM EDT Office Visit [facility]YN [address] [phone] Sophie Momin MD [address] [place] [address] Abnormal uterine bleeding (AUB) (Primary Dx); Preoperative exam for gynecologic surgery Social History Tobacco Use Types Packs/Day Years Used Date Smoking Tobacco: Never Passive Smoke Exposure: Never Smokeless Tobacco: Never Tobacco Cessation:Counseling Given: Not Answered Alcohol Use Standard Drinks/Week Comments Yes 0 (1 standard drink = 0.6 oz pur e alcohol) 4x month Comments No Sex and Gender Information Value Date Recorded Sex Assigned at Female 05/13/2025 8:30 AM EDT Legal Sex Female 12:35 PM EDT Gender Identity Not on file Sexual Orientation Not on file documented as of this encounter Last Filed Vital Signs Vital Sign Reading Time Taken Comments Blood Pressure 118/72 05/20/2025 2:32 PM EDT Pulse - - Temperature - - Respiratory Rate - - Oxygen Saturation - - Inhaled Oxygen Concentration - - Weight 80.7 kg (178 lb) 05/20/2025 2:32 PM EDT Height 165.1 cm (5' 5 ) 05/20/2025 2:32 PM EDT Body Mass Index 29.62 05/20/2025 2:32 PM EDT documented in this encounter Progress Notes * Sophie Momin MD - 05/20/2025 2:10 PM EDT Images from the original note were not included. Gynecologic Preoperative Exam Note Subjective My Garcia is a 44 y.o. year old who is scheduled for hysteroscopy/D&C with Novbridget at [facility] on 05/24/25 at 0800. Her pre operative diagnosis is AUB. She does not need to see her PCP for preop clearance for this surgery. Patient's last menstrual period was 05/15/2025 (exact date).. Her control method is vasectomy. Her BMI is Body mass index is 29.62 kg/m??.. Her medical history is significant for none. She understands the risks of bleeding, infection, possible damage to other organ systems, includingbut not limited to the gastrointestinal tract and genitourinary tract. She also understands the specific risks listed in the preop information (video, pamphlets, etc.). She has reviewed and signed the preop consent form. Her code status is: FULL She has been instructed to have a light dinner the night before surgery, then nothing to eat or drink after midnight. The day of surgery do not chew gum or smoke. Remove all jewelry, nail argentine, contact lenses prior to coming to the hospital. Do not bring valuables or large sums of money with you.Patient was instructed on what time to arrive and where to check in, maps were given. She was instructed that she will meet an Anesthesiologist and that an IV will be started to provide fluids and sedation. The total time of procedure was discussed. 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 Allergies Allergen Reactions Magnesium-Containing Compounds Shortness Of Breath Stadol [Butorphanol] GI Intolerance She has confirmed that she is not allergic to Latex. She is on the following medications. These were reviewed with the patient today and instructed on which medications are ok to take with a sip of water prior to the surgery. Current Outpatient Medications: amLODIPine (NORVASC) 2.5 MG tablet, Take 1 tablet by mouth Daily., Disp: , Rfl: busPIRone (BUSPAR) 10 MG tablet, Take 1 tablet by mouth 2 (Two) Times a Day., Disp: , Rfl: ibuprofen (ADVIL,MOTRIN) 800 MG tablet, Take 1 tablet by mouth Every 6 (Six) Hours As Needed., Disp: , Rfl: linaclotide (LINZESS) 145 MCG capsule capsule, Take 72 mcg by mouth As Needed., Disp: , Rfl: LORazepam (ATIVAN) 0.5 MG tablet, Take 1 tablet by mouth Every 6 (Six) Hours As Needed., Disp: , Rfl: rosuvastatin (CRESTOR) 10 MG tablet, , Disp: , Rfl: traZODone (DESYREL) 50 MG tablet, Take 1 tablet by mouth Every Night., Disp: , Rfl: Vitamin D, Cholecalciferol, (CHOLECALCIFEROL) 10 MCG (400 UNIT) tablet, Take 1 tablet by mouth Daily., Disp: , Rfl: Past Medical History: Diagnosis Date Abnormal Pap smear of cervix 02/11/2019 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 Anemia Anxiety Disease of thyroid gland Parathyroid Gestational hypertension Hyperlipidemia PMS (premenstrual syndrome) Preeclampsia Past Surgical History: Procedure Laterality Date COLPOSCOPY W/ BIOPSY / CURETTAGE 04/12/2011 0200, 1200, ECC- negative, HPV related changes BILATERAL BREAST REDUCTION 11/2020 CARDIAC ABLATION 2017 CERVICAL BIOPSY W/ LOOP ELECTRODE EXCISION CERVICAL CONE BIOPSY 2009- mild dysplasia SECTION LEEP 2009 WISDOM TOOTH EXTRACTION OB History Para Term AB Living 2 2 2 0 0 2 SAB IAB Ectopic Molar Multiple Live Births 0 0 0 0 0 2 # Outcome Date GA Lbr [place]/2nd Weight Sex Type Anes PTL Lv 2 Term 12/28/15 M CS-Unspec TOM 1 Term 05/04/ M CS-Unspec TOM Social History Tobacco Use Smoking Status Never Passive exposure: Never Smokeless Tobacco Never Social History Substance and Sexual Activity Alcohol Use Yes Comment: 4x month Social History Substance and Sexual Activity Drug Use Never Review of Systems Constitutional: Negative. HENT: Negative. Eyes: Negative. Respiratory: Negative. Cardiovascular: Negative. Gastrointestinal: Negative. Endocrine: Negative. Genitourinary: Positive for menstrual problem. Musculoskeletal: Negative. Skin: Negative. Allergic/Immunologic: Negative. Neurological: Negative. Hematological: Negative. Psychiatric/Behavioral: Negative. All other systems reviewed and negative. Objective Vitals: 05/20/25 1432 BP: 118/72 Physical Exam Vitals and nursing note reviewed. Exam conducted with a soil science teacher present. Constitutional: Appearance: She is well-developed. HENT: Head: Normocephalic and atraumatic. Eyes: Conjunctiva/sclera: Conjunctivae normal. Cardiovascular: Rate and Rhythm: Normal rate and regular rhythm. Pulmonary: Effort: Pulmonary effort is normal. Breath sounds: Normal breath sounds. Abdominal: General: Bowel sounds are normal. Palpations: Abdomen is soft. Abdomen is not rigid. Musculoskeletal: Cervical back: Normal range of motion. No muscular tenderness. Skin: General: Skin is warm and dry. Neurological: Mental Status: She is alert and oriented to person, place, and time. Psychiatric: Behavior: Behavior normal. Assessment Problem List Items Addressed This Visit None Visit Diagnoses Abnormal uterine bleeding (AUB) - Primary Relevant Medications amLODIPine (NORVASC) 2.5 MG tablet Preoperative exam for gynecologic surgery Plan Plan is for hysteroscopy D&C with endometrial ablation. Risks of surgery were reviewed with the patient including risks of bleeding, infection, damage to other organ systems including, but not limited to GI and tracts (bowel, bladder, blood vessels, nerves) risks of Anesthesia, as well as the risk the surgery will not produce the desired results, possible need for additional surgery, , risk of uterine perforation. Sophie Momin MD Visit Date: 05/20/2025 documented in this encounter Plan of Treatment Upcoming Encounters Date Type Department Care Team (Late st Contact Info) Description 03/16/2026 9:30 AM EDT Office Visit [facility]YN [address] [facility] [address] [place] [phone] Sophie Momin MD [address] [facility] [address] [place] [address] documented as of this encounter Visit Diagnoses Diagnosis Abnormal uterine bleeding (AUB)- Primary Preoperative exam for gynecologic surgery documented in this encounter Care Teams Landscape Nurseryman Relationship Specialty Start Date End Date Nayeli Lopez, FRANCISCO J [facility] [place] [address] [place] [address] PCP - General Internal Medicine 01/18/25 documented as of this encounter
--- OUTSIDE RECORDS SUMMARY | 2025-05-24 08:00 | XMS_ITS | Encounter Summary ---
[facility] Address [address] [place] [id number] Care Team Providers Care Completion Manager Name Role Phone Nayeli Lopez APRN Primary Care Provider [phone] Reason for Visit * Surgical (Routine) - Closed Specialty Diagnoses / Procedures Referred By Contac t Referred To Contact Diagnoses Abnormal uterine and vaginal bleeding, unspecified Procedures UT HYSTEROSCOPY ENDOMETRIAL ABLATION Sophie Momin MD [address] [place] [address] Phone: tel: fax: [facility] [address] [place] [address] Phone: tel: fax: Referral ID Status Reason Start Date Expiration Date Visits Re quested Visits Authorized [id number] Closed 05/24/2025 05/24/2025 1 1 Encounter Details Date Type Department Care Team (Late st Contact Info) Description 05/24/2025 8:00 AM EDT Outside Facility Service [facility] OBGYN [address] [address] Sophie Momin MD [address] [place] [address] Social History Tobacco Use Types Packs/Day Years Used Date Smoking Tobacco: Never Passive Smoke Exposure: Never Smokeless Tobacco: Never Alcohol Use Standard Drinks/Week Comments Yes 0 [...] Description 03/16/2026 9:30 AM EDT Office Visit [facility] O[facility]YN [address] [phone] Sophie Momin MD [address] [place] [id number] documented as of this encounter Visit Diagnoses Not on filedocumented in this encounter Care Teams Completion Manager Relationship Specialty Start Date End Date Nayeli Lopez APRN [address] [place] [address] PCP - General Internal Medicine 01/18/25 documented as of this encounter
--- OUTSIDE RECORDS SUMMARY | 2025-06-10 15:20 | XMS_ITS | Encounter Summary ---
Author Organization [facility] Address [address] [place] [id number] Care Team Providers Care Engine Tester Name Role Phone Nayeli Lopez APRN Primary Care Provider Reason for Visit * Reason Comments Post-op Encounter Details Date Type Department Care Team (Late st Contact Info) Description 06/10/2025 3:20 PM EDT Office Visit [facility] OBGYN [address] [phone] Sophie Momin MD [address] [place] [address] Postoperative visit (Primary Dx) Social History Tobacco Use Types Packs/Day Years [...] Sign Reading Time Taken Comments Blood Pressure 122/82 06/10/2025 3:57 PM EDT Pulse - - Temperature - - Respiratory Rate - - Oxygen Saturation - - Inhaled Oxygen Concentration - - Weight 83 kg (183 lb) 06/10/2025 3:57 PM EDT Height 165.1 cm (5' 5 ) 06/10/2025 3:57 PM EDT Body Mass Index 30.45 06/10/2025 3:57 PM EDT documented in this encounter Progress Notes * Sophie Momin MD - 06/10/2025 3:20 PM EDT Images from the original note were not included. OBGYN Postoperative Exam Note Subjective Chief Complaint Patient presents with Post-op My Garcia is a 44 y.o. year old presenting to be seen for her post- operative visit. She is S/P Diagnostic hysteroscopy, D&C, and Novasure endometrial ablation on 05/24/2025 at [facility] for Menorrhagia. Currently she reports no problems with eating, bowel movements, voiding, or wound drainage and pain is well controlled. Patient reports having vaginal spotting. The results were discussed with My. 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 Gestational hypertension Hyperlipidemia PMS (premenstrual syndrome) Preeclampsia Past Surgical History: Procedure Laterality Date BILATERAL BREAST REDUCTION 11/2020 CARDIAC ABLATION 2017 CERVICAL BIOPSY W/ LOOP ELECTRODE EXCISION CERVICAL CONE BIOPSY 2009- mild dysplasia SECTION COLPOSCOPY W/ BIOPSY / CURETTAGE 04/12/2011 0200, 1200, ECC- negative, HPV related changes ENDOMETRIAL ABLATION W/ NOVASURE 05/24/2025 LEEP 2009 WISDOM TOOTH EXTRACTION The following portions of the patient's history were reviewed and updated as appropriate:current medications and allergies Review of Systems Constitutional: Negative. HENT: Negative. Eyes: Negative. Respiratory: Negative. Cardiovascular: Negative. Gastrointestinal: Negative. Endocrine: Negative. Genitourinary: Positive for vaginal bleeding. Musculoskeletal: Negative. Skin: Negative. Allergic/Immunologic: Negative. Neurological: Negative. Hematological: Negative. Psychiatric/Behavioral: Negative. Objective BP 122/82 Ht 165.1 cm (65 ) Wt 83 kg (183 lb) LMP 05/15/2025 (Exact Date) BMI 30.45 kg/m?? Physical Exam Constitutional: Appearance: She is well-developed. HENT: Head: Normocephalic. Eyes: Conjunctiva/sclera: Conjunctivae normal. Pulmonary: Effort: Pulmonary effort is normal. Psychiatric: Behavior: Behavior normal. Assessment S/P Novasure Plan Avoid tampons, douching and intercourse Pathology was reviewed with patient The importance of keeping all planned follow-up and taking all medications as prescribed was emphasized. Return Annual in February. Sophie Momin MD 06/10/2025 Answers submitted by the patient for this visit: Post Operative Visit (Submitted on 06/08/2025) Chief Complaint: Follow-up Pain Control: no pain Fever: no fever Diet: adequate intake Activity: normal Operative Site Issues: No documented in this encounter Plan of Treatment Upcoming Encounters Date Type Department Care Team (Late st Contact Info) Description 03/16/2026 9:30 AM EDT Office Visit [facility] OBGYN [address] [place] [address] Sophie Momin MD [address] [facility] [address] [place] [address] documented as of this encounter Visit Diagnoses Diagnosis Postoperative visit- Primary documented in this encounter Care Teams Engine Tester Relationship Specialty Start Date End Date Nayeli Lopez APRN [address] [place] [phone] PCP - General Internal Medicine 01/18/25 documented as of this encounter
[2025-06-16] VITALS (9 sets, daily range): BP systolic 117–128; BP diastolic 83–96; PULSE 68–82; RESP 16–18; TEMP 36.6–36.7; O2SAT 97–100; BMI 28.0
--- NOTE | 2025-06-16 08:46 | PC.NURSE ---
FSBS 92 at this time
--- OUTSIDE RECORDS SUMMARY | 2025-06-16 08:48 | XMS_ITS | Encounter Summary ---
Author Organization Healthcare Address [address] [place] [address] Care Team Providers Care Portfolio Architect Name Role Phone Dawood Mahan MD Primary Care Provider [phone] Desiree Bui APRN Primary Care Provider [phone] Encounter Details Date Type Department Care Team (Late st Contact Info) Description 02/04/2023 Orders Only External Location [address] [place] [address] Provider, External Social History Tobacco Use Types [...] Info) Description 11/03/2025 11:00 AM EST Appointment [facility] Ultrasound [address] [place] [address] 11/03/2025 1:00 PM EST Office Visit [facility] [address], [address] [place] [address] May Patel APRN [address] [place] [address] documented as of this encounter [...] on filedocumented in this encounter Care Teams Portfolio Architect Relationship Specialty Start Date End Date Dawood Mahan MD [address] [place] [id number] PCP - General 02/24/21 07/28/24 Desiree Bui APRN [address] [place] [address] PCP - General 07/29/24 documented as of this encounter
--- OUTSIDE RECORDS SUMMARY | 2025-06-16 08:48 | XMS_ITS | Encounter Summary ---
Author Organization [facility] Address [address] [place] [address] Care Team Providers Care Routing Clerk Name Role Phone Dawood Mahan MD Primary Care Provider [phone] Desiree Bui APRN Primary Care Provider [phone] Encounter Details Date Type Department Care Team (Late st Contact Info) Description 02/04/2023 Orders Only External Location [address] [place] [address] Provider, External Social History Tobacco Use Types [...] Info) Description 11/03/2025 11:00 AM EST Appointment [facility] Ultrasound [address] [place] [address] 11/03/2025 1:00 PM EST Office Visit [facility] [address], [address] [place] [address] May Patel APRN [address] [place] [address] documented as of this encounter [...] on filedocumented in this encounter Care Teams Routing Clerk Relationship Specialty Start Date End Date Dawood Mahan MD [address] [place] [address] PCP - General 02/24/21 07/28/24 Desiree Bui APRN [address] [place] [address] PCP - General 07/29/24 documented as of this encounter
--- OUTSIDE RECORDS SUMMARY | 2025-06-16 08:48 | XMS_ITS | Clinical Summary ---
Author Organization [facility] Address [address] [place] [id number] Care Team Providers Care Senior Business Process Analyst Name Role Phone Nayeli Lopez APRN Primary Care Provider [phone] Allergies Active Allergy Reactions Criticality Noted Date Comments Magnesium-Containing Compounds Shortness Of Breath High 03/27/2022 Butorphanol GI Intolerance Medium 03/27/2022 Medications rosuvastatin (CRESTOR) 10 MG tablet 2 Active ibuprofen (ADVIL,MOTRIN) 800 MG tablet Take 1 tablet by mouth Every 6 (Six) Hours As Needed. 3 Active linaclotide (LINZESS) 145 MCG capsule capsule Take 72 mcg by mouth As Needed. 3 Active LORazepam (ATIVAN) 0.5 MG tablet Take 1 tablet by mouth Every 6 (Six) Hours As Needed. 3 Active traZODone (DESYREL) 50 MG tablet Take 1 tablet by mouth Every Night. 5 Active Vitamin D, Cholecalciferol , (CHOLECALCIFERO L) 10 MCG (400 UNIT) tablet Take 1 tablet by mouth Daily. Active busPIRone (BUSPAR) 10 MG tablet Take 1 tablet by mouth 2 (Two) Times a Day. Active amLODIPine (NORVASC) 2.5 MG tablet Take 1 tablet by mouth Daily. Active amoxicillin (AMOXIL) 500 MG capsule Take 1 capsule by mouth 2 (Two) Times a Day. 5 Active B Complex-Biotin- FA (SUPER B-50 B COMPLEX PO) Take by mouth. 05/20/20 25 Discontinu ed(*Therap y completed) desvenlafaxine (PRISTIQ) 50 MG 24 hr tablet Take 1 tablet by mouth Daily. 05/20/20 25 Discontinu ed(*Therap y completed) Active Problems No known active problems Encounters Date Type Department Care Team Description 06/10/2025 3:20 PM EDT Office Visit [facility] [address] [place] [address] Mitali Momin MD Postoperative visit (Primary Dx) 06/10/2025 Travel 06/01/2025 Telephone [facility] [address] [place] [address] Mitali Momin MD 05/24/2025 8:00 AM EDT Outside Facility Service [facility] [address] [place] [address] Mitali Momin MD 05/20/2025 2:10 PM EDT Office Visit [facility] [address] [place] [address] Mitali Momin MD Abnormal uterine bleeding (AUB) (Primary Dx); Preoperative exam for gynecologic surgery 05/20/2025 Travel 03/18/2025 4:30 PM EDT Office Visit [facility] OBGYN [address] [place] [address] Mitali Momin MD Abnormal uterine bleeding (AUB) (Primary Dx) 03/18/2025 4:00 PM EDT Ancillary Procedure [facility] [address] [place] [place] [address] Menorrhagia with regular cycle 03/18/2025 Travel from Last 3 Months Family History Medical History Relation Name Comments Prostate cancer Father passed in Breast cancer Maternal Grandmother Colon cancer Maternal Uncle Other Mother Parathyroid carmen or and Brain tumor- benign Lung cancer Paternal Grandmother Ovarian cancer Neg Hx Uterine cancer Neg Hx Relation Name Status Comments Father Maternal Grandmother Maternal Uncle Mother Paternal Grandmother Social History Tobacco Use Types [...] Pressure 122/82 06/10/2025 3:57 PM EDT Pulse 80 11/28/2023 9:30 AM EST Temperature - - Respiratory Rate - - Oxygen Saturation 98% 11/28/2023 9:30 AM EST Inhaled Oxygen Concentration - - Weight 83 kg (183 lb) 06/10/2025 3:57 PM EDT Height 165.1 cm (5' 5 ) 06/10/2025 3:57 PM EDT Body Mass Index 30.45 06/10/2025 3:57 PM EDT Plan of Treatment Upcoming Encounters Date Type Department Care Team (Late st Contact Info) Description 03/16/2026 9:30 AM EDT Office Visit [facility] OBGYN [address] [address] Mitali Momin MD [address] [place] [phone] Health Maintenance Due Date Last Done Comments TDAP/TD VACCINES (1 - Tdap) 2001 ANNUAL PHYSICAL 03/27/2022 HEPATITIS C SCREENING 03/27/2022 MAMMOGRAM 2022 COVID-19 Vaccine (2023-2 5 season) 2024 08/18/2021, 11/18/2020, 10/18/2020 INFLUENZA VACCINE 07/14/2025 10/16/2016, 07/04/2016 Annual Gynecologic Pelvic an d Breast Exam 02/12/2026 02/11/2025 PAP SMEAR 08/06/2026 08/06/2023, 08/05/2019 Pneumococcal Vaccine 0-49 Aged Out No longer eligible based on patient's age to complete this topic Procedures Procedure Name Priority Date/Time Associated Diagnosis Comments TISSUE PATHOLOGY EXAM Routine 05/24/2025 8:35 AM EDT Abnormal uterine and vaginal bleeding, unspecified US NON-OB TRANSVAGINAL Routine 03/18/2025 4:14 PM EDT Menorrhagia with regular cycle LIQUID-BASED PAP SMEAR WITH HPV GENOTYPING REGARDLESS OF INTERPRETATION, [facility] (IDANIA,COR,MAD) Routine 08/06/2023 4:30 PM EDT Women's annual routine gynecological examination from Last 3 Months or Most Recently Relevant to Health Maintenance Results * Tissue Pathology Exam (05/24/2025 8:35 AM EDT) Case Report Surgical Pathology Report Case: [id number] Authorizing Provider: Mitali Momin MD Collected: 05/24/2025 08:35 AM Ordering Location: [facility] Received: 05/24/2025 10:08 AM LABORATORY Pathologist: Stan Liang MD Specimen: Endometrial Curettings 05/25/2025 10:42 AM EDT [facility] Clinical Information Abnormal uterine and vaginal bleeding, unspecified 05/25/2025 10:42 AM EDT [facility] Final Diagnosis ENDOMETRIUM, CURETTAGE: Proliferative phase endometrium Negative for atypia or malignancy 05/25/2025 10:42 AM EDT [facility] at 1042 EDT Gross Description 1. Endometrial Curettings. Received in formalin labeled endometrial curettings is a 2.5 x 2.1 x 0.3 cm aggregate of arizmendi-pink soft tissue, blood and mucus, filtered and submitted entirely in 1A. HDM 05/25/2025 10:42 AM EDT [facility] Microscopic Description The slides are reviewed and demonstrate histopathologic features supporting the above rendered diagnosis. 05/25/2025 10:42 AM EDT [facility] Tissue Specimen from endometrium obtained by curettage / Unknown 05/24/2025 8:35 AM EDT 05/24/2025 10:08 AM EDT Mitali Momin MD PATHOLOGY/CYTOLOGY ORDERABLES F inal Result [facility]
[address] [place] [address], * US Non-ob Transvaginal (03/18/2025 4:14 PM EDT) Anatomical Region Laterality Modality Body Ultrasound 03/18/2025 4:54 PM EDT Narrative 03/31/2025 12:08 PM EDT PAT NAME: SAV GARCIA MED REC#: [id number] DA: [id number] PAT GEND: F PAT TYPE: O EXAM MAIDA: [id number] REF PHYS MITALI MOMIN Indication ======== Menorrhagia Comparison Studies There are no relevant prior studies to which this study is being compared Method ======= Voluson E6, Transvaginal ultrasound examination, 3D ultrasound examination. View: Adequate view Uterus ====== Uterus: Normal Uterus position: Anteverted Description of uterine malformations: none Myometrium: Heterogeneous Endometrium: Uniform Cervix details: Normal Uterus long 90 mm Uterus ap 47 mm Uterus tr 61 mm Uterus Vol 132.9 cm Endometrial thickness, total 9.9 mm Right Ovary Rt ovary: Visualized Rt ovary D1 26.3 mm Rt ovary D2 16.5 mm Rt ovary D3 21.0 mm Rt ovary Vol 4.8 cm Left Ovary ========= Lt ovary: Visualized Lt ovary D1 38.4 mm Lt ovary D2 23.8 mm Lt ovary D3 27.80 mm Lt ovary Vol 13.3 cm Cul de Sac Visualized. No free fluid visualized Impression The uterus is normal in size The endometrium appears sonographically normal in shape and appearance The ovaries appear sonographically normal in size, shape and morphology No free fluid seen. Recommendation Follow-up as clinically indicated. Palliative Senior Np: Katy Marie RDMS Physician: Mitali Momin MD, FACOG Electronically signed by: Mitali Momin MD, FACOG at: 12:08 Procedure Note Mitali Momin MD - 03/31/2025 PAT NAME: SAV GARCIA MED REC#: [id number] DA: [id number] PAT GEND: F PAT TYPE: O EXAM MAIDA: [id number] REF PHYS MITALI MOMIN Indication ======== Menorrhagia Comparison Studies There are no relevant prior studies to which this study is beingcompared Method ======= Voluson E6, Transvaginal ultrasound examination, 3D ultrasoundexamination. View: Adequate view Uterus ====== Uterus:Normal Uterus position:Anteverted Description of uterine malformations:none Myometrium:Heterogeneous Endometrium:Uniform Cervix details:Normal Uterus long90 mm Uterus ap47 mm Uterus tr61 mm Uterus Ftv878.9 cm Endometrial thickness, total9.9 mm Right Ovary Rt ovary:Visualized Rt ovary D126.3 mm Rt ovary D216.5 mm Rt ovary D321.0 mm Rt ovary Vol4.8 cm Left Ovary ========= Lt ovary:Visualized Lt ovary D138.4 mm Lt ovary D223.8 mm Lt ovary D327.80 mm Lt ovary Vol13.3 cm Cul de Sac Visualized. No free fluid visualized Impression The uterus is normal in size The endometrium appears sonographically normal in shape and appearance The ovaries appear sonographically normal in size, shape and morphology No free fluid seen. Recommendation Follow-up as clinically indicated. Palliative Senior Np: Katy Marie RDMS Physician: Mitali Momin MD, FACOG Electronically signed by: Mitali Momin MD, FACOG at: 12:[address] [facility] ORDERABLES Final Result * LIQUID-BASED PAP SMEAR WITH HPV GENOTYPING REGARDLESS OF INTERPRETATION (IDANIA,COR,MAD) (08/06/2023 4:30 PM EDT) Reference Lab Report [facility] [address] [place] [address] or [phone] Prudencio Villeda M.D., Desizing Machine Operator PATIENT NAME LABORATORY NO. 127 SAV GARCIA [id number] AGE SEX SSN CLIENT REF # [facility] [address] 1980 F [id number] [address] REQUESTING M.D. [place] [address] MITALI MOMIN DATE COLLECTED DATE RECEIVED DATE REPORTED 08/06/2023 08/06/2023 08/07/2023 ThinPrep Pap with Cytyc Imaging DIAGNOSIS: Negative for intraepithelial lesion or malignancy Multiple factors can influence accuracy of Pap tests; therefore, screening at regular intervals is necessary for early cancer detection. COMMENT: Benign cellular changes associated with reactive/reparativ e changes are present. Professional interpretation rendered by Melony Williamson M.D., F.C.A.P. at [employer], [address] [place] [address]. SPECIMEN ADEQUACY: SATISFACTORY FOR EVALUATION Transformation zone is present. SOURCE OF SPECIMEN: CERVICAL/ENDOCERVI NANCY SLIDES: 1 CLINICAL HISTORY: Women's annual routine gynecological examination HPV HR-HPV POOL: Negative The Aptima HPV assay is an in vitro nucleic acid amplification test for the qualitative detection of E6/E7 viral messenger RNA from 14 high risk types of HPV in cervical specimens. The high risk HPV types detected include: 16, 18, 31, 33, 35, 39, 45, 51, 52, 56, 58, 59, 66, 68 LICENSED FUNERAL DIRECTOR: COURTNEY FERNANDEZ (ASCP) REVIEWED, DIAGNOSED AND ELECTRONICALLY SIGNED BY: Melony Williamson M.D., F.C.A.P. CPT CODES: [id number], [id number], [id number] 08/07/2023 4:50 PM EDT [facility] ThinPrep Vial Collection / Unknown 08/06/2023 4:30 PM EDT 08/06/2023 4:30 PM EDT us Mitali Momin MD PATHOLOGY/CYTOLOGY ORDERABLES F inal Result [facility]
[address] [place] [address], from Last 3 Months or Most Recently Relevant to Health Maintenance Insurance [employer] Care Teams Senior Business Process Analyst Relationship Specialty Start Date End Date Nayeli Lopez APRN [facility] [address] [place] [address] [facility] [place] [address] PCP - General Internal Medicine 01/18/25
--- OUTSIDE RECORDS SUMMARY | 2025-06-16 08:48 | XMS_ITS | Encounter Summary ---
Author Organization Healthcare Address [address] [place] [address] Care Team Providers Care Secondary English Teacher Name Role Phone Desiree Bui TRIAGE LICENSED PRACTICAL NURSE Primary Care Provider [phone] Encounter Details Date Type Department Care Team (Late st Contact Info) Description 08/10/2024 Orders Only External Location [address] [place] [address] Desiree Bui, TRIAGE LICENSED PRACTICAL NURSE [address] [place] [phone] Social History Tobacco Use Types Packs/Day Years [...] Info) Description 11/03/2025 11:00 AM EST Appointment [facility] Ultrasound [address] [place] [address] 11/03/2025 1:00 PM EST Office Visit Medical Office Building [facility] [address] [facility], [address] [place] [address] May Patel, TRIAGE LICENSED PRACTICAL NURSE [address] [facility] [address] [place] [address] documented as of this encounter [...] on filedocumented in this encounter Care Teams Secondary English Teacher Relationship Specialty Start Date End Date Desiree Bui APRN [address] [place] [address] PCP - General 07/29/24 documented as of this encounter
--- OUTSIDE RECORDS SUMMARY | 2025-06-16 08:48 | XMS_ITS | Clinical Summary ---
Author Organization [facility] Address [address] [facility] [address] [place] [address] Phone Care Team Providers Care Car Framer Name Role Phone Dawood Mahan Primary Care Provider Javed Early MD Unavailable [phone] Allergies Active Allergy Reactions Criticality Noted Date [...] patient's age to complete this topic Insurance [facility] CHOICE PLUS [facility] CHOICE PLUS Advance Directives For more information, please contact: [phone] * Full Code (Latest Code Status on File) Date Activated Date Inactivated Comments 10/26/2016 9:17 AM 10/26/2016 2:42 PM Care Teams Car Framer Relationship Specialty Start Date End Date Dawood Mahan [address] [place] [phone] PCP - General Family Medicine 08/16/16 Javed Early MD [address] [place] [address] [place] [id number] Consulting Physician Internal Medicine - Clinical Cardiac Electrophysiology 10/01/16
--- OUTSIDE RECORDS SUMMARY | 2025-06-16 08:48 | XMS_ITS | Encounter Summary ---
Author Organization Healthcare Address [address] [place] [address] Care Team Providers Care Director Of Group Sales Name Role Phone Dawood Mahan MD Primary Care Provider [phone] Desiree Bui APRN Primary Care Provider [phone] Encounter Details Date Type Department Care Team (Late st Contact Info) Description 02/04/2023 Orders Only External Location [address] [place] [address] Provider, External Social History Tobacco Use Types [...] Info) Description 11/03/2025 11:00 AM EST Appointment [facility] Ultrasound [address] [place] [address] 11/03/2025 1:00 PM EST Office Visit Medical Office Building Surgical Special[facility] [address], [address] [place] [address] May Patel APRN [address] [place] [address] documented as of this encounter [...] on filedocumented in this encounter Care Teams Director Of Group Sales Relationship Specialty Start Date End Date Dawood Mahan MD [address] [place] [address] PCP - General 02/24/21 07/28/24 Desiree Bui APRN [address] [place] [address] PCP - General 07/29/24 documented as of this encounter
--- OUTSIDE RECORDS SUMMARY | 2025-06-16 08:48 | XMS_ITS | Encounter Summary ---
Author Organization [place] [address] Care Team Providers Care Plastic Cablemaking Machine Operator Name Role Phone Dawood Mahan Primary Care Provider Javed Early MD Unavailable Encounter Details Date Type Department Care Team (Late st Contact Info) Description 10/25/2016 Orders Only [facility] [address] [facility] [address] [place] [address] Javed Early MD [address] [place], [place] [phone] Social History Tobacco Use Types Packs/Day Years [...] CATH ORDERABLES Final Result Performing Organization Address City/State/[facility] Co de Phone Number [facility] [address] [place] [address] documented in this encounter Visit Diagnoses Not on filedocumented in this encounter Care Teams Plastic Cablemaking Machine Operator Relationship Specialty Start Date End Date Dawood Mahan [address] [place] [phone] PCP - General Family Medicine 08/16/16 Javed Early MD [address] [place] [address] Consulting Physician Internal Medicine - Clinical Cardiac Electrophysiology 10/01/16 documented as of this encounter
--- OUTSIDE RECORDS SUMMARY | 2025-06-16 08:49 | XMS_ITS | Encounter Summary ---
[facility] [address] [place] [address] Care Team Providers Care Diesel Mechanic Construction Name Role Phone Nayeli Lopez APRN Primary Care Provider [phone] Encounter Details Date Type Department Care Team (Latest Contact Info) Description 05/20/2025 Travel Social History Tobacco Use Types Packs/Day Years [...] Description 03/16/2026 9:30 AM EDT Office Visit [facility] [facility] [address] [place] [address] Sophie Momin MD [address] [facility] [address] [place] [address] documented as of this encounter Visit Diagnoses Not on filedocumented in this encounter Care Teams Diesel Mechanic Construction Relationship Specialty Start Date End Date Nayeli Lopez APRN [address] [place] [address] [address] [place] [address] [place] [address] (work) PCP - General Internal Medicine 01/18/25 documented as of this encounter
--- OUTSIDE RECORDS SUMMARY | 2025-06-16 08:49 | XMS_ITS | Clinical Summary ---
Author Organization [facility] Address [address] [place] [address] Care Team Providers Care Pie Topper Name Role Phone HaoDesiree Eloisa MARX Primary Care Provider [phone] Allergies Active Allergy Reactions Criticality Noted Date [...] Info) Description 11/03/2025 11:00 AM EST Appointment [facility] [address] [place] [address] 11/03/2025 1:00 PM EST Office Visit Medical Office Building Surgical Specialties [address] [facility], [address] [place] [address] May Patel S, STEEL TESTER [address] [address] Health Maintenance Due Date Last Done Comments [facility]-HIV Screening 1980 [facility]-Hepatitis C Screening 1982 [facility]-/Child/Adol SDOH Screenings 1982 [facility]-Obesity Intervention 1988 [facility]-Varicella Vaccines (1 of 2 - 13+ 2-dose series) 1995 [facility]- SDOH Screenings 2000 [facility]-Adult SDOH Screenings 2000 [facility]-DTaP,Tdap,and Td Vaccine s (1 - Tdap) 2001 [facility]-Hepatitis B Vaccines (1 of 3 - 19+ 3-dose series) 2001 HPV Vaccines (1 - 3-dose SCD M series) 2009 [facility]-HPV/Cotest 03/21/2014 03/21/2009 [id number] Vaccine ( season) 2024 08/18/2021, 11/18/2020, 10/18/2020 [...] Narrative SUNQUEST - 03/22/2009 10:26 PM EDT [facility] MR #: [id number] [facility] [address] [place], [place] [address] 1980 (Age: 28) FW Collect Date: 03/21/2009 00:00 Receipt Date: 03/21/2009 13:02 Page 1 DEPARTMENT OF PATHOLOGY AND LABORATORY MEDICINE CYTOPATHOLOGY REPORT Email: [email or web address] ATTENDING MD/Practitioner: Molly Sun Jr., Service: GY Location: GY Reported: 03/22/2009 22:26 Collected: 03/21/2009 00:00 INTERPRETATION A. 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 SATISFACTORY FOR EVALUATION; ENDOCERVICAL/ TRANSFORMATION ZONE COMPONENT PRESENT. Slide scanned and imaged by [employer] ThinPrep Imaging System with manual review of all selected wills. Please correlate with corresponding biopsy results ([id number]). Electronically Signed Out COURTNEY Ibarra(ASCP) Marcos Bonner [...] results is suggested (please call Microbiology at [phone] for results). 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 The signing pathologist has performed and is responsible for the reported pathologic evaluation. us Michael Sun MD LAB PATHOLOGY ORDERABLES nal Result [facility]QUEST from Last 3 Months or Most Recently Relevant to Health Maintenance Insurance Care Teams Pie Topper Relationship Specialty Start Date End Date Desiree Bui APRN [address] [place] [address] PCP - General 07/29/24
--- OUTSIDE RECORDS SUMMARY | 2025-06-16 08:49 | XMS_ITS | Encounter Summary ---
[facility] [address] [place] [address] Care Team Providers Care Radiation Control Technician Name Role Phone Nayeli Lopez APRN Primary Care Provider [phone] Encounter Details Date Type Department Care Team (Latest Contact Info) Description 06/10/2025 Travel Social History Tobacco Use Types Packs/Day [...] Description 03/16/2026 9:30 AM EDT Office Visit [facility]YN [address] [facility] [address] [place] [address] Sophie Momin MD [address]00 [facility] [address] [place] [address] documented as of this encounter Visit Diagnoses Not on filedocumented in this encounter Care Teams Radiation Control Technician Relationship Specialty Start Date End Date Nayeli Lopez APRN [address] [place] [address] [address] [place] [address] [place] [address] (work) PCP - General Internal Medicine 01/18/25 documented as of this encounter
--- OUTSIDE RECORDS SUMMARY | 2025-06-16 08:49 | XMS_ITS | Encounter Summary ---
[facility] Address [address] [place] [address] Care Team Providers Care School Lunch Monitor Name Role Phone Nayeli Lopez APRN Primary Care Provider [phone] Encounter Details Date Type Department Care Team (Late st Contact Info) Description 06/01/2025 Telephone [facility] OBGYN [address] [facility] [address] [place] [address] Sophie Momin MD 1700 [facility] [address] [place] [address] Social History Tobacco Use Types Packs/Day Years [...] on file documented as of this encounter Miscellaneous Notes * Telephone Encounter - Jennifer Quintana APRN - 06/01/2025 3:55 PM EDT D&C 05/24/2025. Clear and watery d/c. No concerning odor, fever, chills, cramping, and/or vulvovaginal itching/irritation/pain. Advised to continue to monitor. If symptoms worsen call us. If symptoms continue, discuss with Dr Momin at appt 06/10/25. * Telephone Encounter - Linda Mendez RegSched Rep - 06/01/2025 3:47 PM EDT Pt lvm for call back * Telephone Encounter - Jennifer Quintana APRN - 06/01/2025 12:24 PM EDT LVM for CB. Attempted to CB 2x. * Telephone Encounter - Erica Swanson - 06/01/2025 10:22 AM EDT Pt called in states she is having a watery discharge, no odor, discharged started on 05.29.25. Pt had a DNC on 05.24.25, she states she is fine, just wanted to know if discharge is normal documented in this encounter Plan of Treatment Upcoming Encounters Date Type Department Care Team (Late st Contact Info) Description 03/16/2026 9:30 AM EDT Office Visit [facility] OBGYN [address] [address] Sophie Momin MD [address] [place] [phone] documented as of this encounter Visit Diagnoses Not on filedocumented in this encounter Care Teams School Lunch Monitor Relationship Specialty Start Date End Date Nayeli Lopez APRN [address] [place] [address] PCP - General Internal Medicine 01/18/25 documented as of this encounter
--- NOTE | 2025-06-16 08:50 | PC.NURSE ---
CT delayed due to checking ocular pressure
--- NOTE | 2025-06-16 08:51 | CT_ITS ---
FINAL REPORT TECHNIQUE: NASCET technique utilized for stenosis evaluation. This study was performed with techniques to keep radiation doses as low as reasonably achievable, (ALARA). Individualized dose reduction techniques using automated exposure control or adjustment of mA and/or kV according to the patient's size were employed. CLINICAL HISTORY: Left eye left inferior visual blurriness acute FINDINGS: RIGHT CAROTID: No significant stenosis is seen of the cervical common or internal carotid artery. LEFT CAROTID: No significant stenosis seen of the cervical common or internal carotid artery. VERTEBRALS: The right vertebral artery is dominant. No significant stenosis is present. There are low-attenuation lesions in both lobes of the thyroid measuring 1.5 cm. IMPRESSION: No significant arterial abnormality. Lesions in both lobes of the thyroid. Consider thyroid ultrasound. Reviewed, Interpreted and Dictated by Geraldo East MD Transcribed by Dali Loomis Authenticated and [facility]
--- NOTE | 2025-06-16 08:51 | CT_ITS ---
FINAL REPORT TECHNIQUE: Axial CT images were performed through the head. Coronal reformatted images were submitted. This study was performed with techniques to keep radiation doses as low as reasonably achievable (ALARA). Individualized dose reduction techniques using automated exposure control or adjustment of mA and/or kV according to the patient's size were employed. CLINICAL HISTORY: Left eye left inferior visual blurriness acute r/o stroke FINDINGS: The ventricles are normal in size. There is no evidence of hemorrhage. There is no mass or edema identified. There is no abnormal extra-axial fluid seen. The sinuses are well aerated. IMPRESSION: No acute intracranial process. Reviewed, Interpreted and Dictated by Geraldo East MD Transcribed by Dali Loomis Authenticated and [facility]
--- NOTE | 2025-06-16 08:51 | CT_ITS ---
FINAL REPORT TECHNIQUE: thin section axial CT with and without IV contrast supplemented with multiplanar 3-D reconstruction of the head. This study was performed with techniques to keep radiation doses as low as reasonably achievable, (ALARA)individualized dose reduction techniques using automated exposure control or adjustment of mA and/or kV according to the patient's size were employed. CLINICAL HISTORY: Left eye left inferior visual blurriness acute r/o stroke FINDINGS: Images are somewhat degraded by patient motion. The cranial circulation is unremarkable. There is no significant stenosis, aneurysm or occlusion. IMPRESSION: No evidence of large branch occlusion. Reviewed, Interpreted and Dictated by Geraldo East MD Transcribed by Dali Loomis Authenticated and [facility]
[2025-06-16 08:52] LABS: POC Glucose,Bedside 92 gm/dL (70-110)
--- NOTE | 2025-06-16 08:52 | HMH.EDGENADL ---
Discharge Plan Disposition Patient Disposition: Home, Self-Care Prescriptions Prescriptions: No Action aspirin [Adult Low Dose Aspirin] 81 mg tablet,delayed release (DR/EC) 81 mg PO DAILY trazodone 50 mg tablet 50 mg PO DAILY Qty: 90 3RF amlodipine [Norvasc] 2.5 mg tablet 2.5 mg PO DAILY Qty: 30 2RF Linzess 145 mcg capsule 145 mcg PO DAILY Qty: 30 2RF buspirone 10 mg tablet 10 mg PO BID Qty: 60 2RF lorazepam [Ativan] 0.5 mg tablet 0.5 mg PO BID PRN (Reason: anxiety) Qty: 30 0RF rosuvastatin 10 mg tablet 10 mg PO DAILY Referrals Follow up/Referrals: Desiree Bui APRN [Primary Care Provider, Family Practice] - See instructions Activity Restrictions/Add. Instructions Additional Instructions/Restrictions: At this time it was felt you are safe to be discharged home. If new or worsening symptoms please do not hesitate to return the emergency department. As discussed please follow-up with your eye doctor and if you have any new or worsening symptoms of any kind you come back and see me at the emergency department. I am glad everything turned out okay today. Clinical Impressions Clinical Impression: Thyroid nodule, Alteration in vision Print Language Print Language: Telugu Discharge ED Provider: Clarence Spivey General Adult HPI General Chief complaint: Eye Problems Stated complaint: sudden vision loss in left eye Time Seen by Provider: 06/16/25 08:40 Mode of Arrival: Ambulatory Source of Information: Patient Description of Symptoms (Recalled from ER Triage Doc. by RN): Patient presents to ED after sudden blurry vision is her left eye. Patient states it started around 08:05 and lasted till about 08:20. Patient states now her vision is back still somewhat blurry but nothing like it was before. Patient denies any POLANCO or dizziness. Patient states she has never had this happen before. 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 Onset was acute, occurring at approximately 8:05 AM. In the patient's left eye she had what it seemed like she was looking through a prism with blurriness but still able to make outlines of shapes and colors and currently has just cloudiness in her left inferior field of vision in her left eye. No speech difficulty no reported chest pain no gait changes no other acute complaints at this time. Patient has no allergies. Past medical history of bigeminy status post radiofrequency ablation, hyperparathyroidism generalized anxiety disorder. Please note that above description of symptoms, in this electronic medical record under categorization of recalled from ER triage doctor by RN are reflective of an initial nursing assessment, however, is not reflective of my full history and physical exam that was personally taken and clarified. Consequentially, this preceding description of symptoms, which may include the patient's categorized chief complaint in the EMR, do not reflect my personal clinical impression, and the ultimate description of history of present illness and patient stated complaints should be deferred to this section of the note. Unless stated otherwise or congruent with this section of the note, additional signs, symptoms, or incongruence should be interpreted as inaccurate with my clinical impression. Related Data Home Medications ?Medication ?Instructions ?Recorded ?Confirmed aspirin 81 mg tablet,delayed 81 mg PO DAILY 12/24/24 04/19/25 release (Adult Low Dose Aspirin) rosuvastatin 10 mg tablet 10 mg PO DAILY 01/12/25 04/19/25 Previous Rx's ?Medication ?Instructions ?Recorded trazodone 50 mg tablet 50 mg PO DAILY #90 tabs 11/26/24 amlodipine 2.5 mg tablet (Norvasc) 2.5 mg PO DAILY #30 tabs 01/13/25 Linzess 145 mcg capsule 145 mcg PO DAILY #30 caps 02/17/25 (linaclotide) buspirone 10 mg tablet 10 mg PO BID #60 tabs 03/31/25 lorazepam 0.5 mg tablet (Ativan) 0.5 mg PO BID PRN anxiety #30 tabs 03/31/25 Allergies Allergy/AdvReac Type Severity Reaction Status Date / Time magnesium (MAGNESIUM) Allergy Severe STOP Verified 04/19/25 15:28 BREATHING' butorphanol (From STADOL) AdvReac Mild Nausea Verified 04/19/25 15:28 [facility] Disclaimer: The information contained in this section may have been updated after the patient was seen, as this information can be updated by other users. Medical History Recurrent chest pain Abdominal pain Spell of abnormal behavior Headache Low back strain Diaphoresis Sacroiliitis Nausea & vomiting Diarrhea Generalized anxiety disorder Hyperparathyroidism Iron deficiency anemia Thrombocytosis Elevated platelet count Palpitations History of back pain Bigeminy Trigeminy delivery delivered Surgical History History of radiofrequency ablation procedure for cardiac arrhythmia Hx of breast reduction, elective History of radiofrequency ablation (RFA) procedure for cardiac arrhythmia Social History Smoking Status: Never smoker alcohol intake: current alcohol intake frequency: holidays/special occasions only substance use type: denies use current occupational status: employed Travel in the last 8 weeks?: None household members: spouse and children housing: house marital status: number of children: 2 education level: college pets and animals: Yes pets and animals: dog(s) drive intox or ride w/ intox 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: No water heater temp set < 120 deg: Yes working smoke detector in home: Yes fire extinguisher in home: Yes carbon monox detector in home: Yes firearms in home: No Have you lived/traveled outside [place] in past 30 days?: No Contact w/someone who lives/traveled outside US past 30 days?: No Exposure to someone with infectious disease in past 14 days?: No Do you have a fever (greater than 100.4 F or 38 C)?: No Have you tested positive for COVID-19?: No Exposed to someone with COVID-19 in past 14 days?: No Do you have a sore throat?: No Do you have a cough?: No Do you have any weakness?: No Do you have any diarrhea?: No Are you experiencing any unusual bleeding?: No Do you have any muscle aches/pain?: No Do you have any abdominal pain?: No Are you experiencing loss of taste or smell?: No Other Medical History Have you received the Flu Vaccine for this season: No Have you received the Pneumonia Vaccine: No ROS Obtained: Yes Systems reviewed as appropriate & no additional complaints except as documented Physical Exam General General appearance: alert Comment: Appearing anxious in bed Head Head exam: atraumatic and normocephalic Eye Eye exam: Present PERRL and EOMI ENT ENT exam: Present mucous membranes moist Neck Neck exam: Present normal inspection Chest Chest inspection: Present normal inspection and symmetric chest wall rise Respiratory Respiratory exam: Present normal lung sounds bilaterally; Absent respiratory distress Cardiovascular Cardiovascular exam: Present regular rate and normal rhythm Abdominal Exam Abdominal exam: Present soft; Absent tenderness Extremities Exam Extremities exam: Present normal inspection Neurological Exam Neurological exam: Present alert and normal gait; Absent CN II-XII intact (Visual blurriness left lower field of vision monocular on the left, otherwise grossly intact) or motor sensory deficit Psychiatric Psychiatric exam: Present normal affect Skin Skin exam: Present warm and dry Medical Decision Making Medical Records Screening: Per USPSTF and CDC recommendations, given the prevalence of disease in our region, it is our hospital?s policy to screen for HIV and viral Hepatitis for all patients aged 18 and over and those with ongoing risk factors. Dannie Inquiry Pt receiving controlled substance: No Vital Signs: 06/16/25 08:25 06/16/25 08:27 06/16/25 08:30 Temperature 98.0 F Temperature Source Oral Pulse Rate 82 77 Pulse Rate [Right Apical] 78 Respiratory Rate 18 Blood Pressure Blood Pressure [Right Arm] 123/89 Blood Pressure Mean [Right Arm] 100 Blood Pressure Source [Right Arm] Automatic Cuff Blood Pressure Position [Right Arm] Sitting 02 Sat by Pulse Oximetry 97 98 97 Oxygen Delivery Method Room Air 06/16/25 08:45 06/16/25 10:54 06/16/25 11:00 Temperature Temperature Source Pulse Rate 73 82 73 Pulse Rate [Right Apical] Respiratory Rate Blood Pressure 128/83 118/90 Blood Pressure [Right Arm] Blood Pressure Mean [Right Arm] Blood Pressure Source [Right Arm] Blood Pressure Position [Right Arm] 02 Sat by Pulse Oximetry 99 100 100 Oxygen Delivery Method 06/16/25 11:30 06/16/25 12:00 Temperature Temperature Source Pulse Rate 68 73 Pulse Rate [Right Apical] Respiratory Rate Blood Pressure 117/89 121/95 H Blood Pressure [Right Arm] Blood Pressure Mean [Right Arm] Blood Pressure Source [Right Arm] Blood Pressure Position [Right Arm] 02 Sat by Pulse Oximetry 99 100 Oxygen Delivery Method Lab Data Lab Results 06/16/25 08:30: WBC 7.1, RBC 4.76, Hgb 13.4, Hct 40.2, MCV 84.5, MCH 28.2, MCHC 33.3, RDW 14.0, Plt Count 448 H, MPV 8.6, Neut % (Auto) 52.1, Lymph % (Auto) 34.1, [place] % (Auto) 9.9 H, Eos % (Auto) 2.1, Baso % (Auto) 0.8, Neut # (Auto) 3.7, Lymph # (Auto) 2.4, [place] # (Auto) 0.7, Eos # (Auto) 0.2, Baso # (Auto) 0.1, PT 10.7, INR 0.96, APTT 31.0 H, Sodium 137, Potassium 4.6, Chloride 106, Carbon Dioxide 22, Anion Gap 13.6, BUN 16, Creatinine 0.80, Estimated Creat Clear 114, Estimated GFR 79, Est GFR ( Amer) 95, Glucose 96, Calcium 9.7, Total Bilirubin 0.6, AST 25, ALT 20, Alkaline Phosphatase 75, Troponin I < 0.01, Total Protein 7.9, Albumin 4.7, Globulin 3.2, Albumin/Globulin Ratio 1.5, Triglycerides 298 H, Cholesterol 232 H, LDL Cholesterol Direct 118.25, VLDL Cholesterol 60 H, HDL Cholesterol 43, Cholesterol/HDL Ratio 5.4 H, Free T4 0.85, Serum HCG, Qual Negative, Plasma/Serum Alcohol < 10, HCV Ab KET[place]AH w/Rflx PCR Qn Negative, HIV Ag/Ab Combo Qual Negative 06/16/25 08:45: POC Glucose 92 06/16/25 09:10: Urine Color Yellow, Urine Appearance Clear, Urine pH 5.5, Ur Specific [place] <= 1.005, Urine Protein Negative, Urine Glucose (UA) Negative, Urine Ketones Negative, Urine Blood Negative, Urine Nitrate Negative, Urine Bilirubin Negative, Urine Urobilinogen 0.2, Ur Leukocyte Esterase Negative, Urine RBC None, Urine WBC None, Ur Squamous Epith Cells Occasional, Urine Bacteria None 06/16/25 08:30 06/16/25 08:30 Orders (Tests/Meds): ED MEDICATIONS Generic Name Dose Route Start Last Admin Trade Name Freq PRN Reason Stop Dose Admin Sodium Chloride 10 ml 06/16/25 08:50 Sodium Chloride 0.9% 10ml Flush Syringe IV 07/16/25 08:49 NEEDED PRN Maintain IV Site Sodium Chloride 10 ml 06/16/25 10:35 06/16/25 10:38 Sodium Chloride 0.9% 10ml Syr (Rad Only) IV 07/16/25 10:34 10 ml NEEDED PRN Administration Maintain IV Site Discontinued Medications Generic Name Dose Route Start Last Admin Trade Name Tia PRN Reason Stop Dose Admin Diazepam 5 mg 06/16/25 09:48 06/16/25 09:54 Diazepam 10mg/2ml Syringe IV 06/16/25 09:49 5 mg ONCE ONE Administration Gadoteridol 16 ml 06/16/25 10:35 06/16/25 10:38 Gadoteridol Inj 20ml Syringe IV 06/16/25 10:36 16 ml ONCE ONE Administration Iopamidol 80 ml 06/16/25 08:59 06/16/25 09:00 Iopamidol-370 (76%);100ml Bottle IV 06/16/25 09:00 80 ml ONCE ONE Administration Sodium Chloride 10 ml 06/16/25 08:59 06/16/25 09:00 Sodium Chloride 0.9% 10ml Syr (Rad Only) IV 06/16/25 09:00 10 ml ONCE ONE Administration Sodium Chloride 50 ml 06/16/25 08:59 06/16/25 09:00 0.9 % Sodium Chloride 50 Ml Vial IV 06/16/25 09:00 50 ml ONCE ONE Administration ORDERS Category Date Time Status CT angio head Stat Cat Scan 06/16/25 08:[address] angio neck Stat Cat Scan 06/16/25 08:[address] head/brain wo con Stat Cat Scan 06/16/25 08:51 Completed Activated Partial Thrombo Time Stat Lab 06/16/25 08:30 Completed Complete Blood Count Auto Diff Stat Lab 06/16/25 08:30 Completed Comprehensive Metabolic Panel Stat Lab 06/16/25 08:30 Completed Ethyl Alcohol Stat Lab 06/16/25 08:30 Completed Free T4 (Free Thyroxine) Stat Lab 06/16/25 08:30 Completed HCG Qualitative, Serum Stat Lab 06/16/25 08:30 Completed HIV Combo Stat Lab 06/16/25 08:30 Completed Hepatitis C Ab Qual. W/ RFX Stat Lab 06/16/25 08:30 Completed Lipid Panel Stat Lab 06/16/25 08:30 Completed POC Glucose,Bedside Routine Lab 06/16/25 08:45 Completed Prothrombin Time INR Stat Lab 06/16/25 08:30 Completed TSH [Thyroid Stimulating Hormone] Stat Lab 06/16/25 08:30 Received Troponin I Stat Lab 06/16/25 08:30 Completed Urinalysis and Microscopic Stat Lab 06/16/25 09:10 Completed ECG Data Tracing #1: Independently inter by me rate of 64, rhythm is regular, axis is normal, no ST elevation in anatomical contiguous leads, QTc 390. Medical Decision Narrative: In summary patient is a 44-year-old female past medical history of scrota above who presents emergency department for evaluation of acute onset visual blurriness. Patient is hemodynamically stable nontoxic-appearing upon arrival, afebrile. Inferior left quadrant visual blurriness preceded by blurry prism changes to her vision. Besides the visual blurriness patient has a nonfocal neurologic exam. Differential includes CVA, ocular pathology, among others. Fingerstick blood glucose nonactionable. Workup will be conducted with hematologic labs EKG noncontrasted CT scan head CTA of the head neck. Ocular pressures normal. Visual acuity will be conducted after CT scan. NIH is technically 0 as she does not have true quadrantanopia. Visual acuity 20/30 both eyes corrected. CTs of the head and neck only remarkable for incidental thyroid. No acute intracranial abnormality or acute vascular pathology in the head or neck. Given that [employer] [employer] process is still in the differential in an effort to expedite patient care I discussed the case with radiology techs and they will come get the patient we will get an MR with and without contrast at this time. Brain MRI with and without contrast unremarkable with and without. Upon repeat evaluation patient had total resolution of her symptoms. Given that she does not have critical stenosis, it was monocular, her blood pressure is well-controlled, she is on aspirin and a statin, and the fact that her MRI was normal essentially all emergencies including acute cerebrovascular accident have been ruled out at this time and patient is appropriate for outpatient management follow-up with her eye doctor and was given multiple return precautions verbalized understanding. Of note patient is already aware of her thyroid nodules and are being followed at . Procedure: Procedure performed was ocular pressure measurement, procedure performed by Clarence Spivey. Using the Real-Pen ocular pressures were measured in the eyes bilaterally. Both pressures were under 20, approximately 17 in the left and 15 in the right. Patient tolerated the procedure well there were no immediate complications. Procedure: Procedure performed was with lamp exam. Procedure performed by Clarence Spivey. Using fluorescein stain aided by topical tetracaine the left eye was stained, no fluorescein uptake on [place] lamp exam, patient tolerated procedure well there are no immediate complications. Ophthalmic Lens Inspector disclaimer Much of this encounter note is an electronic commercial fishing vessel operator spoken language to printed text. Electronic commercial fishing vessel operator of the spoken language may permit errors. Although I have reviewed the note, some errors may still exist. Critical Care Critical Care Time Critical Care Time: No
[2025-06-16] MEDS: IOPAMIDOL-370 (76%);100ML BOTTLE 80 ML IV (09:00)
[2025-06-16] MEDS: 0.9 % SODIUM CHLORIDE 50 ML VIAL IV (09:00)
[2025-06-16] MEDS: SODIUM CHLORIDE 0.9% 10ML SYR (RAD ONLY) 10 ML IV ×2 (09:00→10:38)
[2025-06-16 09:04] LABS: Hematocrit 40.2 % (37.0-47.0); Hemoglobin 13.4 g/dL (12.2-16.2); Immature Granulocytes % 1.0 %; Mean Corpuscular HGB Conc 33.3 g/dL (31.8-35.4); Mean Corpuscular Hemoglobin 28.2 pg (27.0-31.2); Mean Corpuscular Volume 84.5 fl (81-99); Nucleated Red Blood Cells % 0 %; Platelet Count 448 K/mm3 (142-424); Red Blood Count 4.76 M/mm3 (4.20-5.40); Red Cell Distribution Width-SD 43.0 fL; White Blood Count 7.1 K/mm3 (4.8-10.8)
[2025-06-16 09:08] LABS: Activated Partial Thrombo Time 31.0 seconds (22.8-30.6); INR 0.96 (0.9-1.1); Prothrombin Time 10.7 seconds (10.1-12.5)
[2025-06-16 09:15] LABS: Microscopic, Urine URINE MICROSCOPIC (MICROSCOPIC)
[2025-06-16 09:31] LABS: Alanine Aminotransferase 20 U/L (12-78); Albumin Level 4.7 g/dl (3.5-5.0); Albumin/Globulin Ratio 1.5 (1.1-1.8); Alkaline Phosphatase 75 U/L (38-126); Anion Gap 13.6 mEq/L (5-15); Aspartate Amino Transferase 25 U/L (14-36); Bilirubin,Total 0.6 mg/dl (0.2-1.3); Blood Urea Nitrogen 16 mg/dl (7-17); Calcium 9.7 mg/dl (8.4-10.2); Carbon Dioxide 22 mmol/L (22.0-30.0); Chloride 106 mmol/L (98-107); Cholesterol 232 mg/dl (140-200); Creatinine Clearance Estimated 114 mL/min (50-200); Creatinine,Serum 0.80 mg/dl (0.52-1.04); Estimated Glomerular Filt Rate 79 ml/min (>60); GFR (African American) 95 ML/MIN (>60); Globulin 3.2 g/dL (1.3-3.2); Glucose 96 mg/dl (74-100); HDL Cholesterol 43 mg/dl (40-60); Potassium 4.6 mmoL/L (3.5-5.1); Sodium 137 mmol/L (136-145); Total Protein,Serum 7.9 g/dl (6.3-8.2); Triglycerides 298 mg/dl (30-150)
--- NOTE | 2025-06-16 09:46 | MR_ITS ---
FINAL REPORT TECHNIQUE: Multiplanar MR, without and with contrast administration CLINICAL HISTORY: acute L monocular inferior L visual field changes FINDINGS: Diffusion sequences show no signal abnormalities to indicate acute infarct. The brain parenchyma is homogeneous with normal signal pattern. Ventricles are normal. No edema or hemorrhage is seen. There is no evidence of Chiari malformation. Major vessel flow-voids are intact. The 7th and 8th nerve root complexes are intact. The globes are symmetric. There is no intra or extraconal inflammation. Following contrast administration, there is no mass or abnormal parenchymal enhancement. IMPRESSION: Unremarkable MR evaluation of the brain, without and with contrast Reviewed, Interpreted and Dictated by Geraldo East MD Transcribed by Dali Loomis Authenticated and [facility]
[2025-06-16 09:48] LABS: Troponin I < 0.01 ng/ml (0.00-0.034)
[2025-06-16] MEDS: diazePAM 10MG/2ML SYRINGE 5 MG IV (09:54)
--- NOTE | 2025-06-16 09:55 | PC.NURSE ---
Pt to MRI at this time
[2025-06-16 10:19] LABS: HCG Qualitative, Serum Negative (Negative)
[2025-06-16 10:38] LABS: Bilirubin,Urine Negative (Negative); Color,Urine YELLOW (Yellow); Glucose,Urine (UA) Negative (Negative); Ketones,Urine Negative (Negative); Leukocyte Esterase,Urine Negative (Negative); PH,Urine 5.5 (5.0-8.5); Protein,Urine Negative (Negative); Urobilinogen,Urine 0.2 EU/dl (0.2)
[2025-06-16] MEDS: GADOTERIDOL INJ 20ML SYRINGE 16 ML IV (10:38)
[2025-06-16 10:45] LABS: Specific Gravity, Urine <= 1.005 (1.005-1.030)
--- NOTE | 2025-06-16 10:52 | PC.NURSE ---
pt is back from MRI at this time
[2025-06-16 10:54] LABS: Free T4 (Free Thyroxine) 0.85 ng/dl (0.78-2.19)
[2025-06-16 11:16] LABS: Squamous Epithelial Cell,Urine Occasional #/hpf (0-5)
[2025-06-16 11:25] LABS: Hepatitis C Ab Qual. W/ RFX NEGATIVE (Negative)
[2025-06-16 12:57] LABS: Thyroid Stimulating Hormone 3.20 uIU/mL (0.465-4.68)
== END 2025-06-16 12:42 | disposition home or self-care (01) ==
PROVIDERS: Emergency Provider Emergency Medicine; PCP Nurse Practitioner Family
DX: H53.132 Sudden visual loss, left eye (principal); E04.1 Nontoxic single thyroid nodule
CPT/HCPCS: 70450; 70496; 70498; 70553; 80053; 80061; 80320; 81001; 82962; 84439; 84443; 84484; 84703; 85025; 85610; 85730; 86803; 87389; 93005; 96374; 99285; A9576; J3360; Q9967

== ENCOUNTER 2025-08-17 13:20 | Outpatient (CLI) | payer OTHER, SELFPAY ==
--- NOTE | 2025-08-17 13:25 | XR_ITS ---
FINAL REPORT CLINICAL HISTORY: lumbago FINDINGS: AP, lateral, and oblique views of the lumbar spine were obtained. There is no prior exam for comparison. There is no acute fracture or acute malalignment. Vertebral body height is preserved. Mild degenerative disease at L5-S1. No acute paraspinal abnormality is identified. IMPRESSION: No acute osseous abnormalities lumbar spine. Mild degenerative disease L5-S1. Reviewed, Interpreted and Dictated by Addie Horn MD Transcribed by Nallely Hummel Authenticated and . [facility]
--- NOTE | 2025-08-17 13:25 | XR_ITS ---
FINAL REPORT CLINICAL HISTORY: b hip pain FINDINGS: An AP view of the pelvis and a frog leg view of the right hip were obtained. There is no prior exam for comparison. There is no acute fracture or dislocation. Degenerative joint disease. Remaining osseous pelvis is without acute abnormality. Soft tissues are unremarkable. IMPRESSION: Degenerative change without acute osseous abnormality of the right hip. Reviewed, Interpreted and Dictated by Addie Horn MD Transcribed by Nallely Hummel Authenticated and [facility]
--- NOTE | 2025-08-17 13:25 | XR_ITS ---
FINAL REPORT CLINICAL HISTORY: bilateral hip pain FINDINGS: AP and frog leg views of the left hip were obtained. There is no prior exam for comparison. There is no acute fracture or dislocation. Mild degenerative disease. Soft tissues are unremarkable. IMPRESSION: Mild degenerative change without acute osseous abnormality of the left hip. Reviewed, Interpreted and Dictated by Addie Horn MD Transcribed by Nallely Hummel Authenticated and [facility]
== END 2025-08-17 23:59 | disposition home or self-care (01) ==
LOC: RAD 13:20
PROVIDERS: PCP Nurse Practitioner Family; Visit Provider Nurse Practitioner Family
DX: M51.379 Other intervertebral disc degeneration, lumbosacral region without mention of lumbar back pain or lower extremity pain (principal); M16.11 Unilateral primary osteoarthritis, right hip; M16.12 Unilateral primary osteoarthritis, left hip; M21.70 Unequal limb length (acquired), unspecified site
CPT/HCPCS: 72110; 73502